=== PATIENT | female | born 1950 | race Caucasian/White ===

== ENCOUNTER 2017-05-24 10:22 | Inpatient (IN) | payer MEDICARE, MEDICAID ==
[2017-05-24] VITALS (13 sets, daily range): BP systolic 101–137; BP diastolic 58–80; PULSE 96–141; RESP 23–34; TEMP 98.7–100.7; O2SAT 92–98
[~2017-05-24] VITALS: Ht 157.5 cm; Wt 72.0 kg
[~2017-05-24 10:22] MED LIST: ALPR.25 PO; AMIO200 PO; CARV12.5 PO; CLOP75 PO; DILT60TA PO; ECOT81TA2 PO; EPZITAB4 PO; ESOM1CAP6 PO; HCTZ25 PO; KCL20 PO; LOSA50 PO; MAGN400 PO; MONT10TA2 PO; NEUR800T PO; PROZ20CA11 PO; ROSU40 PO; SUST600T4 PO; TRAM50 PO; ZOLP10TA3 PO
--- NOTE | 2017-05-24 10:42 | PD ---
HPI Chief Complaint: Respiratory Distress Time Seen by Provider: 10:33 Travel History International Travel<30 days: No Contact w/Intl Traveler<30days: No Traveled to known affect area: No History of Present Illness HPI The patient was seen and examined in the presence of the nurse. This patient is sent in by ambulance from the shelter in critical distress. She is a DNR patient with HIV who is currently on day 5 of Tamiflu for influenza. She is an active smoker at the facility. She's been coughing up thick mucus. She has a fever of 100.7 at this time. Symptoms are severe. Duration of symptoms 1 week. However much worse today. No alleviating factors. Symptoms exacerbated by her smoking and immunocompromise. PFSH Past Medical History Hx Anticoagulant Therapy: Yes Arthritis: No Asthma: Yes Autoimmune Disease: Yes (HIV +) Blood Disorders: No Anxiety: Yes Depression: Yes Heart Rhythm Problems: Yes (MURMUR AFIB) Cancer: No Cardiovascular Problems: Yes High Cholesterol: Yes Chemotherapy: No Congestive Heart Failure: No COPD: No Cerebrovascular Accident: Yes Diabetes: Yes Endocrine: No Gastrointestinal Disorders: Yes GERD: Yes Glaucoma: No Genitourinary: No Headaches: No Hepatitis: Yes (Hep-C) Hiatal Hernia: No Hypertension: Yes Immune Disorder: No Implanted Vascular Access Dvce: Yes Kidney Stones: No Musculoskeletal: Yes ("INJURIES FROM FREQU[place] FALLS") Neurologic: Yes Psychiatric: Yes Reproductive: No Respiratory: Yes Migraines: No Radiation Therapy: No Renal Failure: No Seizures: No Sickle Cell Disease: No Sleep Apnea: No Thyroid Disease: No Ulcer: No ?: Not Past Surgical History Abdominal Surgery: No AICD: No Body Medical Devices: RODS IN BILATERAL LEGS FROM ORTHOPEDIC SURGERY PER SISTER Cardiac Surgery: No Ear Surgery: No Endocrine Surgery: No Eye Surgery: Yes (BILATERAL CATARACTS) Genitourinary Surgery: No Gynecologic Surgery: Yes Hysterectomy: Yes Insulin Pump: No Joint Replacement: No Oral Surgery: No Pacemaker: No Thoracic Surgery: Yes (L MASTECTOMY) Other Surgery: Yes (LUMPECTOMY) Social History Alcohol Use: No Tobacco Use: No (1 PACK A DAY FOR 30 YEARS) Substance Use: No Allergies-Medications (Allergen,Severity, Reaction): Coded Allergies: acetaminophen (Unverified Allergy, Severe, GI UPSET, 11/08/16) hydrocodone (Unverified Allergy, Severe, GI UPSET, 11/08/16) Reported Meds & Prescriptions Reported Meds & Active Scripts Active Xanax 0.25 Mg (Alprazolam) 0.25 Mg Tab 0.25 Mg PO Q8H PRN Prozac (Fluoxetine HCl) 20 Mg Cap 40 Mg PO DAILY Sustiva (Efavirenz) 600 Mg Tab 600 Mg PO HS Ecotrin (Aspirin) 81 Mg Tabec 81 Mg PO DAILY Epzicom 600/300 (Abacavir/Lamivudine) Tab 1 Tab PO DAILY Cardizem 60 mg tab (Diltiazem HCl) 60 Mg Tab 1 Tab PO QID Mag-Ox 400 Mg Tab (Magnesium Oxide) 400 Mg Tab 800 Mg PO TID Kcl 20 Meq Tab (Potassium Chloride) 20 Meq Tabcr 20 Meq PO DAILY Ultram (Tramadol HCl) 50 Mg Tab 50 Mg PO Q8H PRN Nexium 24Hr (Esomeprazole Magnesium) 20 Mg Cap 20 Mg PO DAILY Crestor (Rosuvastatin Calcium) 40 Mg Tab 40 Mg PO HS Cordarone 200 Mg Tab (Amiodarone HCl) 200 Mg Tab 300 Mg PO Q12HR Coreg 12.5 mg (Carvedilol) 12.5 Mg Tab 1 Tab PO BID Losartan Potassium 50 Mg Tab 50 Mg PO BID Hydrodiuril (Hydrochlorothiazide) 25 Mg Tab 25 Mg PO DAILY Plavix (Clopidogrel Bisulfate) 75 Mg Tab 75 Mg PO DAILY Neurontin (Gabapentin) 800 Mg Tab 800 Mg PO BID Singulair (Montelukast Sodium) 10 Mg Tab 10 Mg PO HS Reported Ambien 10 Mg Tab (Zolpidem Tartrate) 10 Mg Tab 10 Mg PO HS Review of Systems General / Constitutional: Positive: Fever, Chills Eyes: No: Visual changes HENT: Positive: Congestion, No: Headaches Cardiovascular: Positive: Tachycardia, No: Chest Pain or Discomfort Respiratory: Positive: Cough, Shortness of Breath, Wheezing Gastrointestinal: No: Abdominal Pain Genitourinary: No: Dysuria Musculoskeletal: No: Pain Skin: No Rash Neurologic: No: Weakness Psychiatric: No: Depression Endocrine: No: Polydipsia Hematologic/Lymphatic: No: Easy Bruising Physical Exam Narrative GENERAL: Obese 67-year-old woman in profound respiratory distress. SKIN: Focused skin assessment reveals no rash and nodules. Skin is Warm and dry. HEAD: Atraumatic. Normocephalic. EYES: Pupils equal and round. No scleral icterus. No injection or drainage. ENT: No nasal bleeding or discharge. Mucous membranes pink and moist. NECK: Trachea midline. No JVD. CARDIOVASCULAR: Regular rate and rhythm. No murmur appreciated. Tachycardic at 140 RESPIRATORY: Positive accessory muscle use. Diffuse expiratory wheezing and rhonchi . Breath sounds equal bilaterally. Respiratory rate is elevated GASTROINTESTINAL: Abdomen soft, non-tender, nondistended. Hepatic and splenic margins not palpable. MUSCULOSKELETAL: No obvious deformities. No clubbing. No cyanosis. No edema. NEUROLOGICAL: Awake and alert. No obvious cranial nerve deficits. Motor grossly within normal limits. Normal speech. PSYCHIATRIC: Appropriate mood and affect; insight and judgment poor . Data Data Last Documented VS Vital Signs Date Time Temp Pulse Resp B/P (MAP) Pulse Ox O2 Delivery O2 Flow Rate FiO2 05/24/17 11:42 95 70 05/24/17 11:20 130 27 113/58 (76) BiPAP 05/24/17 10:31 8.00 05/24/17 10:31 100.7 Orders Orders Complete Blood Count With Diff (05/24/17 10:33) Comprehensive Metabolic Panel (05/24/17 10:33) Blood Culture (05/24/17 10:33) Iv Access Insert/Monitor (05/24/17 10:33) Electrocardiogram (05/24/17 10:33) Ecg Monitoring (05/24/17 10:33) Oximetry (05/24/17 10:33) Oxygen Administration (05/24/17 10:33) Chest, Single Ap (05/24/17 10:33) Sodium Chloride 0.9% Flush (Ns Flush) (05/24/17 10:45) Methylprednisolone So Succ Inj (Solumedr (05/24/17 10:45) Albuterol-Ipratropium Neb (Duoneb Neb) (05/24/17 10:45) Resp Bipap / Cpap Non Invas Vt (05/24/17 10:33) Piperacil-Tazo 3.375 Gm Premix (Zosyn 3. (05/24/17 10:45) Lactic Acid (05/24/17 10:42) Arterial Blood Gas (Abg) (05/24/17 ) B-Type Natriuretic Peptide (05/24/17 12:59) Ct Thorax/ Chest Wo Iv Contras (05/24/17 ) Admit Order (Ed Use Only) (05/24/17 13:05) Admit To Inpatient (05/24/17 ) Code Status (05/24/17 13:04) Vital Signs (Adult) ANGELITO.Q1H (05/24/17 13:04) Activity Bed Rest (05/24/17 13:04) Hydraulic Corrugating Machine Operator / Telemetry ANGELITO.Q8H (05/24/17 13:04) Intake + Output ANGELITO.Q8H (05/24/17 13:04) Diet Npo (05/24/17 Lunch) Sodium Chlor 0.9% 1000 Ml Inj (Ns 1000 M (05/24/17 13:04) Sodium Chloride 0.9% Flush (Ns Flush) (05/24/17 13:15) Sodium Chloride 0.9% Flush (Ns Flush) (05/24/17 13:15) Albuterol-Ipratropium Neb (Duoneb Neb) (05/24/17 16:00) Albuterol-Ipratropium Neb (Duoneb Neb) (05/24/17 13:15) Chlorhexidine 0.12% Liq (Peridex 0.12% L (05/24/17 20:00) Famotidine Inj (Pepcid Inj) (05/24/17 13:15) Complete Blood Count With Diff (05/25/17 06:00) Comprehensive Metabolic Panel (05/25/17 06:00) Troponin I (05/24/17 13:04) Troponin I (05/24/17 19:04) Magnesium (Mg) (05/24/17 13:04) Sputum Culture And Gram Stain (05/24/17 13:04) Ua Includes Microscopic (05/24/17 13:04) Chest, Single Ap (05/25/17 06:00) Resp Bipap / Cpap Non Invas Vt (05/24/17 ) Enoxaparin Inj (Lovenox Inj) (05/24/17 13:15) ^ Initiate Protocol (05/24/17 13:04) Instruction (05/24/17 13:04) Notify Md To Reorder (05/24/17 13:15) Chlorhexidine 2% Cloth (Chlorhexidine 2% (05/25/17 04:00) Chlorhexidine 2% Cloth (Chlorhexidine 2% (05/24/17 13:15) Mrsa Pcr Surveillance (05/24/17 13:04) Inpatient Certification (05/24/17 ) Piperacil-Tazo 4.5 Gm Premix (Zosyn 4.5 (05/24/17 13:15) Linezolid 600 Mg Premix (Zyvox 600 Mg Pr (05/24/17 13:15) Oseltamivir (Tamiflu) (05/24/17 21:00) Consult Infectious Disease (05/24/17 ) Labs Laboratory Tests Test 05/24/17 10:28 05/24/17 11:27 White Blood Count 12.2 TH/MM3 Red Blood Count 4.76 MIL/MM3 Hemoglobin 15.3 GM/DL Hematocrit 44.3 % Mean Corpuscular Volume 93.1 FL Mean Corpuscular Hemoglobin 32.1 PG Mean Corpuscular Hemoglobin Concent 34.4 % Red Cell Distribution Width 17.2 % Platelet Count 170 TH/MM3 Mean Platelet Volume 11.5 FL Neutrophils (%) (Auto) 87.6 % Lymphocytes (%) (Auto) 6.7 % Monocytes (%) (Auto) 5.2 % Eosinophils (%) (Auto) 0.2 % Basophils (%) (Auto) 0.3 % Neutrophils # (Auto) 10.7 TH/MM3 Lymphocytes # (Auto) 0.8 TH/MM3 Monocytes # (Auto) 0.6 TH/MM3 Eosinophils # (Auto) 0.0 TH/MM3 Basophils # (Auto) 0.0 TH/MM3 CBC Comment AUTO DIFF Differential Total Cells Counted 100 Neutrophils % (Manual) 70 % Band Neutrophils % 18 % Lymphocytes % 8 % Monocytes % 4 % Neutrophils # (Manual) 10.7 TH/MM3 Differential Comment FINAL DIFF MANUAL Toxic Vacuolation PRESENT Platelet Estimate NORMAL Platelet Morphology Comment ENLARGED Blood Urea Nitrogen 46 MG/DL Creatinine 1.48 MG/DL Random Glucose 162 MG/DL Total Protein 7.6 GM/DL Albumin 2.8 GM/DL Calcium Level 8.2 MG/DL Alkaline Phosphatase 109 U/L Aspartate Amino Transf (AST/SGOT) 129 U/L Alanine Aminotransferase (ALT/SGPT) 177 U/L Total Bilirubin 0.6 MG/DL Sodium Level 137 MEQ/L Potassium Level 3.5 MEQ/L Chloride Level 109 MEQ/L Carbon Dioxide Level 16.8 MEQ/L Anion Gap 11 MEQ/L Estimat Glomerular Filtration Rate 35 ML/MIN Lactic Acid Level 1.6 mmol/L Blood Gas Puncture Site RT RADIAL Blood Gas Patient Temperature 98.6 Blood Gas HCO3 15 mmol/L Blood Gas Base Excess -9.5 mmol/L Blood Gas Oxygen Saturation 93 % Arterial Blood pH 7.36 Arterial Blood Partial Pressure CO2 27 mmHg Arterial Blood Partial Pressure O2 72 mmHG Arterial Blood Oxygen Content 20.0 Vol % Arterial Blood Carboxyhemoglobin 1.0 % Arterial Blood Methemoglobin 0.6 % Blood Gas Hemoglobin 15.3 G/DL Oxygen Delivery Device BiPAP Blood Gas Ventilator Setting IPAP15/[id number] Blood Gas Inspired Oxygen 70 % MDM Medical Decision Making Medical Screen Exam Complete: Yes Emergency Medical Condition: Yes Medical Record Reviewed: Yes Differential Diagnosis Respiratory failure, pneumonia, COPD Narrative Course I have reviewed the patient's electronic medical record. Reviewed her shelter paperwork. She is a DNR. Reviewed her labs from March 1034: I have evaluated the patient. She is in critical respiratory distress. IV placed I gave her IV Solu-Medrol and IV Zosyn after 2 blood culture sets obtained Labs sent I've ordered an x-ray. I've initiated BiPAP therapy We'll honor her DNR and hold off on intubation 11:30: I reviewed her chest x-ray. Radiologist reading is noted. However she does not have any clinical suspicion of CHF. No edema or diuretic use. On the other hand she does have pneumonia symptomatology with fever and productive cough and immunocompromise 1145: CBC shows minor leukocytosis Metabolic profile shows azotemia with elevated BUN and creatinine ratio Get some IV fluid She is in A. fib with RVR Not hypotensive at this time 12:30: Another recheck was done. I reviewed her ABG which shows significant hypoxemia. However her workup breathing is much better on the BiPAP Heart rate running in the 120s A. fib 1310: I reviewed with revenue accounting manager for admission Patient is critically ill Critical Care Narrative Aggregate critical care time was 80 minutes. Time to perform other separately billable procedures was not included in the critical care time. My time did not include minutes spent treating any other patients simultaneously or on activities that did not directly contribute to the patient's treatment. The services I provided to this patient were to treat and/or prevent clinically significant deterioration that could result in: Cardiopulmonary arrest, hypoxemic brain injury, I provided critical care services requiring my management, as noted below: Chart data review, documentation time, medication orders and management, vital sign assessments/reviewing monitor data, ordering and reviewing lab tests, ordering and interpreting/reviewing x-rays and diagnostic studies, care of the patient and discussion of the patient with the admitting physicians. Sepsis Criteria SIRS Criteria (2 or more): Heart rate over 90, RR > 20 or PaCO2 < 32 Sepsis Criteria (SIRS+source): Infect source susp/known Criteria Outcome: Meets sepsis criteria Diagnosis Primary Impression: Acute hypoxemic respiratory failure Additional Impressions: History of HIV infection Atrial fibrillation with RVR Azotemia Admitting Information Admitting Physician Requests: Admit Beto Deleon MD May 24, 2017 10:42
[2017-05-24] MEDS ORDERED: SODIUM CHLORIDE 0.9% FLUSH 10 ML FLUSH IVF PRN (10:45)
[2017-05-24] MEDS ORDERED: PIPERACIL-TAZO 3.375 GM PREMIX 50 ML IV ONE (10:45)
[2017-05-24] MEDS: RESP: ALBUTEROL 2.5 MG/IPRATROPIUM 0.5 MG NEB (SCH) INH ×3 (10:45→10:55)
[2017-05-24] MEDS ORDERED: methylPREDNISolone SOD SUCC 125 MG/2 ML VIAL IV PUSH ONE (10:45)
--- NOTE | 2017-05-24 10:58 | RADRPT ---
EXAM DATE/TIME: 05/24/2017 10:43 [facility] COMPARISON: CHEST SINGLE AP, April 07, 2015, 14:22. INDICATIONS : Shortness of breath. MEDICAL HISTORY : Hypertension. Myocardial infarction. Stroke. Afib. Diabetes. SURGICAL HISTORY : None. ENCOUNTER: Initial ACUITY: 1 day PAIN SCORE: 0/10 LOCATION: Bilateral chest FINDINGS: Cardiomegaly with mild interstitial edema without consolidation or pleural effusion. No pneumothorax . The portion of the bony skeleton visualized is unremarkable. CONCLUSION: Mild to moderate congestive failure when compared to 04/07/15 Esteban Clarke MD FACR on May 24, 2017 at 10:56 Board Certified Radiologist. This report was verified electronically.
[2017-05-24 11:01] LABS: AUTOMATED NEUTROPHIL # 10.7 TH/MM3 (1.8-7.7); BASOPHIL % 0.3 % (0.0-2.0); EOSINOPHIL % 0.2 % (0.0-4.0); HEMATOCRIT 44.3 % (35.0-46.0); HEMOGLOBIN 15.3 GM/DL (11.6-15.3); LYMPH % 6.7 % (9.0-44.0); LYMPHOCYTE # 0.8 TH/MM3 (1.0-4.8); MEAN CELL VOLUME 93.1 FL (80.0-100.0); MEAN CORPUSCULAR HEMOGLOBIN 32.1 PG (27.0-34.0); MEAN CORPUSCULAR HGB CONC 34.4 % (32.0-36.0); MEAN PLATELET VOLUME 11.5 FL (7.0-11.0); MONO % 5.2 % (0.0-8.0); MONOCYTE # 0.6 TH/MM3 (0-0.9); NEUT % 87.6 % (16.0-70.0); PLATELET COUNT 170 TH/MM3 (150-450); RED BLOOD COUNT 4.76 MIL/MM3 (4.00-5.30); RED CELL DISTRIBUTION WIDTH 17.2 % (11.6-17.2); WHITE BLOOD COUNT 12.2 TH/MM3 (4.0-11.0)
[2017-05-24 11:11] LABS: ALKALINE PHOSPHATASE 109 U/L (45-117); TOTAL BILIRUBIN ADULT 0.6 MG/DL (0.2-1.0); TOTAL PROTEIN 7.6 GM/DL (6.4-8.2)
[2017-05-24 11:24] LABS: ALBUMIN 2.8 GM/DL (3.4-5.0); ALT (GPT) 177 U/L (10-53); AST (GOT) 129 U/L (15-37); BICARBONATE 16.8 MEQ/L (21.0-32.0); BLOOD UREA NITROGEN 46 MG/DL (7-18); CALCIUM 8.2 MG/DL (8.5-10.1); CHLORIDE 109 MEQ/L (98-107); CREATININE 1.48 MG/DL (0.50-1.00); GLOMERULAR FILTRATION RATE 35 ML/MIN (>89); GLUCOSE,RANDOM 162 MG/DL (74-106); SODIUM (NA) 137 MEQ/L (136-145)
[2017-05-24 11:51] LABS: BANDS 18 % (0-6); LYMPHOCYTES 8 % (9-44); MONOCYTES 4 % (0-8); NEUTROPHIL # MANUAL DIFF 10.7 TH/MM3 (1.8-7.7); POLYS (SEG NEUTROPHILS) 70 % (16-70); TOXIC VACUOLATION PRESENT (NONE SEEN)
[2017-05-24] MEDS ORDERED: MISCELLANEOUS NURSING INFORMATION XX SCH (13:15)
[2017-05-24] MEDS ORDERED: SODIUM CHLORIDE 0.9% FLUSH 10 ML FLUSH IV FLUSH PRN (13:15)
[2017-05-24] MEDS ORDERED: CHLORHEXIDINE GLUCONATE 2 % 1 PACK (2 CLOTHS) TOP PRN (13:15)
--- NOTE | 2017-05-24 13:31 | HHI.HP ---
[facility] Service Critical Care Medicine Primary Care Physician Enio Sanchez MD Admission Diagnosis acute hypoxemic resp failure, HCAP,afib with rvr,DNR Diagnosis: (1) Acute hypoxemic respiratory failure Diagnosis: Principal (2) Acute exacerbation of chronic obstructive pulmonary disease (COPD) Diagnosis: Principal (3) Severe sepsis Diagnosis: Principal (4) Healthcare-associated pneumonia Diagnosis: Principal (5) Bilateral multilobar pneumonia Diagnosis: Principal (6) Influenza Diagnosis: Principal (7) Acute kidney injury Diagnosis: Principal (8) Atrial fibrillation with RVR Diagnosis: Principal (9) Atrial fibrillation Diagnosis: Secondary (10) Expressive aphasia Diagnosis: Secondary (11) Depression Diagnosis: Secondary (12) Hypertension Diagnosis: Secondary (13) HLD (hyperlipidemia) Diagnosis: Secondary (14) Left acute arterial ischemic stroke, MCA (middle cerebral artery) Diagnosis: Secondary (15) History of diabetes mellitus Diagnosis: Secondary (16) Left carotid stenosis Diagnosis: Secondary Chief Complaint: Acute hypoxemic respiratory failure, multilobar pneumonia Travel History International Travel<30 Days: No Contact w/Intl Traveler <30 Da: No Traveled to Known Affected Are: No Sepsis Criteria SIRS Criteria (2 or more): Temp > 100.9 or < 96.8, Heart rate over 90, RR > 20 or PaCO2 < 32, WBC > 79733, < 4000 or > 10% bands Sepsis Criteria (SIRS+source): Infect source susp/known Severe Sepsis (+one): Organ Dysfunction, Acute Oliguria/Renal Failure Criteria Outcome: Meets severe sepsis criteria History of Present Illness Patient is a 67-year-old female with history of CVA in the past with right hemiparesis, expressive aphasia, coronary artery disease, chronic atrial fibrillation, carotid stenosis, HIV on HAART who [facility] severe respiratory distress and hypoxemia. Currently DNR. Recently diagnosed with influenza pneumonia currently on day 5 of Tamiflu. Fever of 100.7 in the ED. patient was in severe respiratory distress and hypoxemic immediately placed on BiPAP 70% oxygen. Chest x-ray showed bibasilar infiltrate later confirmed with CT chest as multilobar infiltrate/pneumonia. Patient received IV Solu- Medrol and IV Zosyn after 2 blood culture obtained. Patient also also found to be in A. fib with RVR with rates in 140s. CBC showed WBC count 12.2. BUN/cr was 46/1.5 and was normal about a week ago. Critical care medicine was requested to admit the patient. I evaluated the patient in the ED. She still appears to be in moderate respiratory distress but BiPAP had been removed per patient request. Significant respiratory distress and expressive aphasia limits exam. Patient is breathing approximately 40 breaths per minute, bilateral wheezing and coarse crackles heard. I have added scheduled Solu-Medrol, DuoNeb. Tamiflu will be continued, continue Zosyn and add Zyvox. ID consulted. Continue BiPAP at 02/28. Prognosis is guarded at this time Review of Systems ROS Limitations: Clinical Condition (resp failure on BiPAP) Past Family Social History Allergies: Coded Allergies: acetaminophen (Unverified Allergy, Severe, GI UPSET, 11/08/16) hydrocodone (Unverified Allergy, Severe, GI UPSET, 11/08/16) Past Medical History Hepatitis C HIV Atrial fibrillation Hyperlipidemia Mild aortic stenosis Multiple falls Left MCA distribution stroke Hypertension Asthma GERD Past Surgical History Left mastectomy Lateral lower extremity orthopedic surgery. Reported Medications Xanax 0.25 Mg (Alprazolam) 0.25 Mg Tab 0.25 Mg PO Q8H PRN Prozac (Fluoxetine HCl) 20 Mg Cap 40 Mg PO DAILY Sustiva (Efavirenz) 600 Mg Tab 600 Mg PO HS Ecotrin (Aspirin) 81 Mg Tabec 81 Mg PO DAILY Epzicom 600/300 (Abacavir/Lamivudine) Tab 1 Tab PO DAILY Cardizem 60 mg tab (Diltiazem HCl) 60 Mg Tab 1 Tab PO QID Mag-Ox 400 Mg Tab (Magnesium Oxide) 400 Mg Tab 800 Mg PO TID Kcl 20 Meq Tab (Potassium Chloride) 20 Meq Tabcr 20 Meq PO DAILY Ultram (Tramadol HCl) 50 Mg Tab 50 Mg PO Q8H PRN Nexium 24Hr (Esomeprazole Magnesium) 20 Mg Cap 20 Mg PO DAILY Crestor (Rosuvastatin Calcium) 40 Mg Tab 40 Mg PO HS Cordarone 200 Mg Tab (Amiodarone HCl) 200 Mg Tab 300 Mg PO Q12HR Coreg 12.5 mg (Carvedilol) 12.5 Mg Tab 1 Tab PO BID Losartan Potassium 50 Mg Tab 50 Mg PO BID Hydrodiuril (Hydrochlorothiazide) 25 Mg Tab 25 Mg PO DAILY Plavix (Clopidogrel Bisulfate) 75 Mg Tab 75 Mg PO DAILY Neurontin (Gabapentin) 800 Mg Tab 800 Mg PO BID Singulair (Montelukast Sodium) 10 Mg Tab 10 Mg PO HS Ambien 10 Mg Tab (Zolpidem Tartrate) 10 Mg Tab 10 Mg PO HS Active Ordered Medications Reviewed Family History Unable to obtain due to clinical condition Social History Continues to smoke at the shelter Physical Exam Vital Signs Vital Signs Date Time Temp Pulse Resp B/P (MAP) Pulse Ox O2 Delivery O2 Flow Rate FiO2 05/24/17 11:42 95 70 05/24/17 11:20 130 27 113/58 (76) 94 BiPAP 70 05/24/17 10:38 92 BiPAP 70 05/24/17 10:32 93 70 05/24/17 10:31 93 Nasal Cannula 8.00 05/24/17 10:31 100.7 141 29 137/80 (99) BiPAP 70 Physical Exam GENERAL: Obese 67-year-old woman in respiratory distress, currently on a nonrebreather SKIN: Skin is Warm and dry. HEAD: Atraumatic. Normocephalic. EYES: Pupils equal and round. No scleral icterus. ENT: No nasal bleeding or discharge. Mucous membranes dry NECK: Trachea midline. No JVD. CARDIOVASCULAR: No murmur appreciated. Tachycardic at 130-140. Monitor shows atrial fibrillation with RVR RESPIRATORY: Positive accessory muscle use. Diffuse expiratory wheezing and rhonchi . Tachypneic GASTROINTESTINAL: Abdomen soft, non-tender, nondistended. Hepatic and splenic margins not palpable. MUSCULOSKELETAL: No obvious deformities. No edema. NEUROLOGICAL: Awake and alert. Speech is incomprehensible, history of expressive aphasia. Limited exam due to respiratory distress but appears to have right hemiparesis Laboratory Laboratory Tests Test 05/24/17 10:28 05/24/17 11:27 White Blood Count 12.2 Red Blood Count 4.76 Hemoglobin 15.3 Hematocrit 44.3 Mean Corpuscular Volume 93.1 Mean Corpuscular Hemoglobin 32.1 Mean Corpuscular Hemoglobin Concent 34.4 Red Cell Distribution Width 17.2 Platelet Count 170 Mean Platelet Volume 11.5 Neutrophils (%) (Auto) 87.6 Lymphocytes (%) (Auto) 6.7 Monocytes (%) (Auto) 5.2 Eosinophils (%) (Auto) 0.2 Basophils (%) (Auto) 0.3 Neutrophils # (Auto) 10.7 Lymphocytes # (Auto) 0.8 Monocytes # (Auto) 0.6 Eosinophils # (Auto) 0.0 Basophils # (Auto) 0.0 CBC Comment AUTO DIFF Differential Total Cells Counted 100 Neutrophils % (Manual) 70 Band Neutrophils % 18 Lymphocytes % 8 Monocytes % 4 Neutrophils # (Manual) 10.7 Differential Comment FINAL DIFF MANUAL Toxic Vacuolation PRESENT Platelet Estimate NORMAL Platelet Morphology Comment ENLARGED Blood Urea Nitrogen 46 Creatinine 1.48 Random Glucose 162 Total Protein 7.6 Albumin 2.8 Calcium Level 8.2 Alkaline Phosphatase 109 Aspartate Amino Transf (AST/SGOT) 129 Alanine Aminotransferase (ALT/SGPT) 177 Total Bilirubin 0.6 Sodium Level 137 Potassium Level 3.5 Chloride Level 109 Carbon Dioxide Level 16.8 Anion Gap 11 Estimat Glomerular Filtration Rate 35 Lactic Acid Level 1.6 Blood Gas Puncture Site RT RADIAL Blood Gas Patient Temperature 98.6 Blood Gas HCO3 15 Blood Gas Base Excess -9.5 Blood Gas Oxygen Saturation 93 Arterial Blood pH 7.36 Arterial Blood Partial Pressure CO2 27 Arterial Blood Partial Pressure O2 72 Arterial Blood Oxygen Content 20.0 Arterial Blood Carboxyhemoglobin 1.0 Arterial Blood Methemoglobin 0.6 Blood Gas Hemoglobin 15.3 Oxygen Delivery Device BiPAP Blood Gas Ventilator Setting IPAP15/EPAP5 Blood Gas Inspired Oxygen 70 Date/Time Source Procedure Growth Status 05/24/17 10:35 Blood Peripheral Aerobic Blood Culture Pending Received 05/24/17 10:35 Blood Peripheral Anaerobic Blood Culture Pending Received Result Diagram: 05/24/17 1028 05/24/17 1028 Imaging CXR shows bilateral infiltrate CT chest bilateral infiltrate involving multiple lobes Septic Shock Reassessment Septic shock perfusion: reassessment completed Caprini VTE Risk Assessment Caprini VTE Risk Assessment: Mod/High Risk (score >= 2) Caprini Risk Assessment Model Point Value = 1 Point Value = 2 Point Value = 3 Point Value = 5 Age 41-60 Minor surgery BMI > 25 kg/m2 Swollen legs Varicose veins or History of unexplained or recurrent spontaneous Oral contraceptives or hormone replacement Sepsis (< 1 month) Serious lung disease, including pneumonia (< 1 month) Abnormal pulmonary function Acute myocardial infarction Congestive heart failure (< 1 month) History of inflammatory bowel disease Medical patient at bed rest Age 61-74 Arthroscopic surgery Major open surgery (> 45 min) Laparoscopic surgery (> 45 min) Malignancy Confined to bed (> 72 hours) Immobilizing plaster cast Central venous access Age >= 75 History of VTE Family history of VTE Factor V Leiden Prothrombin [id number] Lupus anticoagulant Anticardiolipin antibodies Elevated serum homocysteine Heparin-induced thrombocytopenia Other congenital or acquired thrombophilia Stroke (< 1 month) Elective arthroplasty Hip, pelvis, or leg fracture Acute spinal cord injury (< 1 month) Prophylaxis Regimen Total Risk Factor Score Risk Level Prophylaxis Regimen 0-1 Low Early ambulation 2 Moderate Order ONE of the following: *Sequential Compression Device (SCD) *Heparin 5000 units SQ BID 3-4 Higher Order ONE of the following medications: *Heparin 5000 units SQ TID *Enoxaparin/Lovenox 40 mg SQ daily (WT < 150 kg, CrCl > 30 mL/min) *Enoxaparin/Lovenox 30 mg SQ daily (WT < 150 kg, CrCl > 10-29 mL/min) *Enoxaparin/Lovenox 30 mg SQ BID (WT < 150 kg, CrCl > 30 mL/min) AND/OR *Sequential Compression Device (SCD) 5 or more Highest Order ONE of the following medications: *Heparin 5000 units SQ TID (Preferred with Epidurals) *Enoxaparin/Lovenox 40 mg SQ daily (WT < 150 kg, CrCl > 30 mL/min) *Enoxaparin/Lovenox 30 mg SQ daily (WT < 150 kg, CrCl > 10-29 mL/min) *Enoxaparin/Lovenox 30 mg SQ BID (WT < 150 kg, CrCl > 30 mL/min) AND *Sequential Compression Device (SCD) Assessment and Plan Assessment and Plan Neuro/Psych: History of left MCA stroke with right hemiparesis Depression Peripheral neuropathy Continue aspirin/Plavix PT/OT once stabilized respiratory prince Hold as needed Xanax, Prozac, Neurontin, Ambien CV: Atrial fibrillation with rapid ventricular response CAD with History of non-STEMI Dyslipidemia Left carotid stenosis History of hypertension Chronic A. fib Start Cardizem infusion for rate control Continue Home medications Coreg and amiodarone, hold p.o. Cardizem, and losartan Continue aspirin Plavix Check 2 D Echo. Echocardiogram in 2014 EF around 50%. Resp: Acute hypoxemic respiratory failure Multilobar pneumonia recent influenza Acute COPD exacerbation BiPAP 10/5 with 70% FiO2 Fluid resuscitation with 1 L normal saline and 75 mL/h IV Solu-Medrol 125 mg 1 and 60 mg every 8 hours DuoNeb every 4 hours scheduled and as needed Broad-spectrum antibiotics with Zosyn, Zyvox, Tamiflu GI: History of hepatitis C History diverticulosis Elevated liver enzymes NPO except meds IV Famotidine Check liver and gallbladder ultrasound : Acute kidney injury Gates will be placed for accurate I's and O's in a critically ill patient IVF as above Endo: Diabetes mellitus Place on sliding scale insulin. Accu-Cheks to maintain euglycemia Heme: Monitor CBC daily. ID: Bilateral pneumonia healthcare associated Reason influenza HIV Placed on Zosyn and Zyvox, and continue Tamiflu for influenza with superadded bacterial pneumonia Continue HAART Consult ID ENDO: Hypokalemia Replace electrolytes as clinically indicated for electrolyte protocol Access Utilized peripheral IVs Prophylaxis GI - Protonix DVT - SCD/Lovenox subcutaneous Critical Care 45 MIN Patient is critically ill in severe hypoxemic respiratory failure, due to DNR status unable to intubate. Continue BIPAP, IV Steroids, breathing treatment and broad spectrum antibiotics. Prognosis guarded Code Status DNR Discussed Condition With Dr. Dumont Problem Qualifiers (1) Atrial fibrillation: Qualified Codes: I48.91 - Unspecified atrial fibrillation (2) Depression: Qualified Codes: F32.9 - Major depressive disorder, single episode, unspecified Missael Erickson MD May 24, 2017 13:31
--- NOTE | 2017-05-24 13:39 | RADRPT ---
EXAM DATE/TIME: 05/24/2017 13:27 [facility] COMPARISON: No previous studies available for comparison. INDICATIONS : Shortness of breath. RADIATION DOSE: 18.63 CTDIvol (mGy) MEDICAL HISTORY : Cardiovascular disease. Hypertension. Asthma SURGICAL HISTORY : Hysterectomy. Shoulder surgery ENCOUNTER: Initial ACUITY: 1 day PAIN SCALE: 0/10 LOCATION: chest TECHNIQUE: Volumetric scanning of the chest was performed. Using automated exposure control and adjustment of t he mA and/or kV according to patient size, radiation dose was kept as low as reasonably achievable to obtain optimal diagnostic quality images. DICOM format image data is available electronically for r eview and comparison. Follow-up recommendations for detected pulmonary nodules are based at a minimum on nodule size and pa tient risk factors according to Fleischner Society Guidelines. FINDINGS: There is patchy airspace disease in both the right and left lungs with groundglass opacity and scatte red areas of consolidation. There is compensated cardiomegaly with extensive vascular calcification including the coronaries. Th ere is no pericardial effusion. There is no significant pleural effusion Small 1.4 cm left adrenal nodule is noted. Upper abdominal contents otherwise unremarkable. CONCLUSION: Patchy airspace disease scattered consolidation both lungs. No pleural effusion. Esteban Clarke MD FACR on May 24, 2017 at 13:37 Board Certified Radiologist. This report was verified electronically.
[2017-05-24] MEDS ORDERED: DILTIAZEM INJ 125 MG in SODIUM CHLORIDE 0.9% INJ 100 ML IV PRN (14:15)
[2017-05-24] MEDS ORDERED: SODIUM CHLOR 0.9% 1000 ML INJ 1,000 ML IV ONE (14:15)
[2017-05-24] MEDS ORDERED: GLUCAGON 1 MG/ML VIAL OTHER PRN (14:45)
[2017-05-24] MEDS ORDERED: DEXTROSE 50% IN WATER 50 ML VIAL(D50) IV PUSH PRN (14:45)
--- NOTE | 2017-05-24 14:52 | RADRPT ---
EXAM DATE/TIME: 05/24/2017 13:48 [facility] COMPARISON: CT THORAX W/O CONTRAST, May 24, 2017, 13:27. EXTERNAL COMPARISON : [facility], [facility]IVER, September 03, 2014 INDICATIONS : Abnormal labs. MEDICAL HISTORY : Hypercholesterolemia. Hepatitis C. CVA. SD. Anticoagulant therapy. A.FIb. Murmur. Hypertension. Ast hma. GERD. Diabetes. HIV. SURGICAL HISTORY : Hysterectomy. Cataracts removal. Left mastectomy. Bilateral leg surgery with hardware. ENCOUNTER: Initial ACUITY: 1 day PAIN SCORE: 0/10 LOCATION: Abdomen. MEASUREMENTS: LIVER: 19.9 cm length COMMON DUCT: 6 mm RIGHT KIDNEY: 11.6 x 3.9 x 4.2 cm SPLEEN: 11.7 cm length FINDINGS: LIVER: Mild increased echotexture without focal lesion or ductal dilatation. Main portal vein is patent. COMMON DUCT: No intraluminal mass or stone visualized. GALLBLADDER: There is a single stone visualized in the gallbladder. No wall thickening or pericholecystic fluid is present. PANCREAS: The visualized portions are within normal limits. RIGHT KIDNEY: No hydronephrosis, stone or mass. SPLEEN: No focal lesion. CONCLUSION: 1. Mild increased echotexture of the liver may indicate steatosis. 2. Cholelithiasis. Dre Goodman MD on May 24, 2017 at 14:49 Board Certified Radiologist. This report was verified electronically.
[2017-05-24] MEDS: RESP: ALBUTEROL 2.5 MG/IPRATROPIUM 0.5 MG NEB (SCH) NEB ×3 (15:29→23:12)
[2017-05-24] MEDS ORDERED: RESP: ALBUTEROL 2.5 MG/IPRATROPIUM 0.5 MG NEB (SCH) NEB (16:00)
[2017-05-24] MEDS: SODIUM CHLORIDE 0.9% FLUSH 10 ML FLUSH IV FLUSH SCH ×2 (16:14→21:56)
[2017-05-24] MEDS: ENOXAPARIN SODIUM 30 MG/0.3 ML SYRINGE SQ SCH (16:14)
[2017-05-24] MEDS: FAMOTIDINE 20 MG/2 ML VIAL IV PUSH SCH (16:14)
[2017-05-24] MEDS: LINEZOLID 600 MG PREMIX 300 ML IV SCH (16:14)
[2017-05-24] MEDS: SODIUM CHLOR 0.9% 1000 ML INJ 1,000 ML IV SCH (16:29)
[2017-05-24] MEDS: INSULIN ASPART SUPPLEMENTAL SCALE SQ SCH ×2 (16:38→21:54)
[2017-05-24] MEDS: PIPERACIL-TAZO 3.375 GM PREMIX 50 ML IV SCH ×2 (16:52→22:03)
[2017-05-24] MEDS ORDERED: PIPERACIL-TAZO 4.5 GM PREMIX 100 ML IV SCH (17:00)
--- NOTE | 2017-05-24 19:45 | PD.ID.CON ---
History of Present Illness Service ID Consult Requested By Dr Erickson Reason for Consult HIV , PNA Primary Care Physician Enio Sanchez MD Diagnoses: History of Present Illness 67 yo female is a very poor historian History obtained from the chart She lives in [facility], pt of Dr Sanchez, + chronic tobaccoism, COPD, HIV dz ( pt of Dr Gupta, on HAART: Truvadfa+ Norvir only reported on med rec), she dpoesnnot know her CD4 SHe presented with diagnosis of influenza in acute resp distress, cough CT showed b/l patchy infiltrates She is on zosyn, zyvox and tamiflu She is afebrile with mildly elevated WBC (12K) ABG with incerease Aa gradient MRSA nasal screen + Lactic acid wnl Blood clx are Pending Sputum clx not available (pt not expectorationg) Review of Systems Except as stated in HPI: all other systems reviewed are Neg Past Family Social History Allergies: Coded Allergies: acetaminophen (Unverified Allergy, Severe, GI UPSET, 11/08/16) hydrocodone (Unverified Allergy, Severe, GI UPSET, 11/08/16) Past Medical History HIV HCV breast CA (L) COPD tobaccoism NSTEMI AFib MOrbid obesity Past Surgical History L mastectomy ORIF BLE Active Ordered Medications Medications where reviewed in EMR Antibiotics Include: tamiflu zosyn zyvox Family History reviewed non contributory Social History + tobacco no ETOH resides in [facility] Physical Exam Vital Signs Vital Signs Date Time Temp Pulse Resp B/P (MAP) Pulse Ox O2 Delivery O2 Flow Rate FiO2 05/24/17 19:12 97 BiPAP 50 05/24/17 19:11 97 50 05/24/17 18:00 104 05/24/17 16:00 109 05/24/17 16:00 99.6 109 34 107/61 (76) 92 05/24/17 15:30 98 Non-Rebreather 12.00 05/24/17 11:42 95 70 05/24/17 11:20 130 27 113/58 (76) 94 BiPAP 70 05/24/17 10:38 92 BiPAP 70 05/24/17 10:32 93 70 05/24/17 10:31 93 Nasal Cannula 8.00 05/24/17 10:31 100.7 141 29 137/80 (99) BiPAP 70 Physical Exam CONSTITUTIONAL/GENERAL: This is a morbidly obese patient, in no apparent distress. On BIPAP 50%, partial face mask TUBES/LINES/DRAINS: SKIN: No jaundice, rashes, or lesions. Skin temperature appropriate. Not diaphoretic. BREASTS: mastectomy scar L breast - well healed HEAD: Atraumatic. Normocephalic. EYES: Pupils equal and round and reactive. Extraocular motions intact. No scleral icterus. No injection or drainage. Fundi not examined. ENT: Hearing grossly normal. Nose without bleeding or purulent drainage. Limited mucosae exam without visible erythema, or lesions. NECK: Trachea midline. Supple, nontender. CARDIOVASCULAR: Regular rate and rhythm without murmurs, gallops, or rubs. No JVD. Peripheral pulses symmetric. Perifery well perfused RESPIRATORY/CHEST: Symmetric, unlabored respirations. Diffuse b/l to auscultation. Breath sounds equal bilaterally. GASTROINTESTINAL: Abdomen soft, non-tender, nondistended. No hepato-splenomegaly , or palpable masses. No guarding. Bowel sounds present. GENITOURINARY: Without palpable bladder distension. Gates catheter in place. MUSCULOSKELETAL: Extremities without clubbing, cyanosis, or edema. No joint tenderness or effusion noted. No calf tenderness. No mottling or clubbing. LYMPHATICS: No palpable cervical or supraclavicular adenopathy. NEUROLOGICAL: Awake and alert. Motor and sensory grossly within normal limits. Follows commands. Moves all extremities. PSYCHIATRIC: No obvious anxiety/depression. no apparent hallucinations or other psychotic thought process. Laboratory Laboratory Tests Test 05/24/17 10:28 05/24/17 11:27 05/24/17 16:00 White Blood Count 12.2 Red Blood Count 4.76 Hemoglobin 15.3 Hematocrit 44.3 Mean Corpuscular Volume 93.1 Mean Corpuscular Hemoglobin 32.1 Mean Corpuscular Hemoglobin Concent 34.4 Red Cell Distribution Width 17.2 Platelet Count 170 Mean Platelet Volume 11.5 Neutrophils (%) (Auto) 87.6 Lymphocytes (%) (Auto) 6.7 Monocytes (%) (Auto) 5.2 Eosinophils (%) (Auto) 0.2 Basophils (%) (Auto) 0.3 Neutrophils # (Auto) 10.7 Lymphocytes # (Auto) 0.8 Monocytes # (Auto) 0.6 Eosinophils # (Auto) 0.0 Basophils # (Auto) 0.0 CBC Comment AUTO DIFF Differential Total Cells Counted 100 Neutrophils % (Manual) 70 Band Neutrophils % 18 Lymphocytes % 8 Monocytes % 4 Neutrophils # (Manual) 10.7 Differential Comment FINAL DIFF MANUAL Toxic Vacuolation PRESENT Platelet Estimate NORMAL Platelet Morphology Comment ENLARGED Blood Urea Nitrogen 46 Creatinine 1.48 Random Glucose 162 Total Protein 7.6 Albumin 2.8 Calcium Level 8.2 Alkaline Phosphatase 109 Aspartate Amino Transf (AST/SGOT) 129 Alanine Aminotransferase (ALT/SGPT) 177 Total Bilirubin 0.6 Sodium Level 137 Potassium Level 3.5 Chloride Level 109 Carbon Dioxide Level 16.8 Anion Gap 11 Estimat Glomerular Filtration Rate 35 Lactic Acid Level 1.6 Troponin I 0.02 B-Type Natriuretic Peptide 111 Blood Gas Puncture Site RT RADIAL Blood Gas Patient Temperature 98.6 Blood Gas HCO3 15 Blood Gas Base Excess -9.5 Blood Gas Oxygen Saturation 93 Arterial Blood pH 7.36 Arterial Blood Partial Pressure CO2 27 Arterial Blood Partial Pressure O2 72 Arterial Blood Oxygen Content 20.0 Arterial Blood Carboxyhemoglobin 1.0 Arterial Blood Methemoglobin 0.6 Blood Gas Hemoglobin 15.3 Oxygen Delivery Device BiPAP Blood Gas Ventilator Setting IPAP15/EPAP5 Blood Gas Inspired Oxygen 70 Date/Time Source Procedure Growth Status 05/24/17 10:35 Blood Peripheral Aerobic Blood Culture Pending Received 05/24/17 10:35 Blood Peripheral Anaerobic Blood Culture Pending Received Result Diagram: 05/24/17 1028 05/24/17 1028 Imaging Last Impressions Chest X-Ray 05/24/17 1033 Signed Impressions: Service Date/Time: Wednesday, May 24, 2017 10:43 - CONCLUSION: Mild to moderate congestive failure when compared to 04/07/15 Esteban Clarke MD FACR Liver Ultrasound 05/24/17 0000 Signed Impressions: Service Date/Time: Wednesday, May 24, 2017 13:48 - CONCLUSION: 1. Mild increased echotexture of the liver may indicate steatosis. 2. Cholelithiasis. Dre Goodman MD Chest CT 05/24/17 0000 Signed Impressions: Service Date/Time: Wednesday, May 24, 2017 13:27 - CONCLUSION: Patchy airspace disease scattered consolidation both lungs. No pleural effusion. Esteban Clarke MD FACR Assessment and Plan Assessment and Plan Influenza PNA Respiratory insufficiency HIV, unknown immunosuppression status Morbid obesety COPD Chronic tobaccoism cont current abx cont tamiflu will need to review HAART wt provider (Dr Gupta) sputum clx fu blood clx Margaret Judge MD May 24, 2017 19:45
--- NOTE | 2017-05-24 19:51 | HHI.PR ---
Addendum to Inpatient Note Additional Information Pt seen and examined chart reviewed pt is a very poor historian Full note to follow Brifly: 67 yo with HIV (Dr Gupta, CD4 unknown) / HAART reported in the chart reviewed , tobaccosism, COPD, L breast ca, HCV preseted from [facility] with Influenza, PNA and resp insufficiency On BIPAP NOt expectorating On exam: comfortabl;e on 50% FiO2 BIPAP partial face mask Diffuse rhonchi on aiscultation RRR Benign obese abdomen Well perfused warm toes, fingers CT with patcy infiltrates BC P Sputum not obtainable 2/2 lack of expectoration ABx: Tamiflu, zosyn, zyvox, HAART (ABC/Tenofovir, Norvir) Plan: cont current abx will need records re HAART sputum clx Margaret Judge MD May 24, 2017 19:51
[2017-05-24] MEDS: CHLORHEXIDINE 0.12% (ORAL KIT) 15 ML CUP MT SCH (20:00)
[2017-05-24 20:25] LABS: MAGNESIUM 1.2 MG/DL (1.5-2.5)
[2017-05-24 20:28] LABS: TROPONIN I 0.03 NG/ML (0.02-0.05)
[2017-05-24] MEDS: OSELTAMIVIR PHOSPHATE 75 MG CAP PO SCH (21:00)
[2017-05-24] MEDS: AMIODARONE 200 MG TAB PO SCH (21:54)
[2017-05-24] MEDS: MONTELUKAST SODIUM 10 MG TAB PO SCH (21:55)
[2017-05-24] MEDS: ATORVASTATIN 80 MG TAB PO SCH (21:56)
[2017-05-24] MEDS: CARVEDILOL 12.5 MG TAB PO SCH (21:56)
[2017-05-24] MEDS: methylPREDNISolone SOD SUCC 125 MG/2 ML VIAL IV PUSH SCH (21:57)
[2017-05-24] MEDS ORDERED: SODIUM CHLORIDE 0.9% INJ 50 ML ONE (22:01)
[2017-05-24] MEDS ORDERED: PIPERACIL-TAZO 3.375 GM PREMIX 50 ML ONE (22:01)
[2017-05-25] VITALS (14 sets, daily range): BP systolic 102–137; BP diastolic 56–71; PULSE 78–88; RESP 16–27; TEMP 97.6–98.6; O2SAT 93–96
[2017-05-25] MEDS: LINEZOLID 600 MG PREMIX 300 ML IV SCH ×2 (02:30→14:10)
[2017-05-25] MEDS: FAMOTIDINE 20 MG/2 ML VIAL IV PUSH SCH ×2 (02:30→14:10)
[2017-05-25] MEDS: RESP: ALBUTEROL 2.5 MG/IPRATROPIUM 0.5 MG NEB (SCH) NEB ×6 (03:15→23:34)
[2017-05-25] MEDS: SODIUM CHLOR 0.9% 1000 ML INJ 1,000 ML IV SCH ×3 (03:20→16:50)
[2017-05-25] MEDS: CHLORHEXIDINE GLUCONATE 2 % 1 PACK (2 CLOTHS) TOP SCH ×2 (04:00→06:00)
[2017-05-25] MEDS ORDERED: PIPERACIL-TAZO 3.375 GM PREMIX 50 ML ONE ×3 (04:01→21:21)
[2017-05-25] MEDS ORDERED: SODIUM CHLORIDE 0.9% INJ 0 ML ONE (04:01)
[2017-05-25] MEDS: methylPREDNISolone SOD SUCC 125 MG/2 ML VIAL IV PUSH SCH ×3 (04:30→21:29)
[2017-05-25] MEDS: PIPERACIL-TAZO 3.375 GM PREMIX 50 ML IV SCH ×4 (04:30→21:29)
[2017-05-25] MEDS: INSULIN ASPART SUPPLEMENTAL SCALE SQ SCH ×6 (04:32→20:00)
--- NOTE | 2017-05-25 04:50 | RADRPT ---
EXAM DATE/TIME: 05/25/2017 03:38 [facility] COMPARISON: CT THORAX W/O CONTRAST, May 24, 2017, 13:27. CHEST SINGLE AP, May 24, 2017, 10:43. INDICATIONS : Shortness of breath, possible pulmonary disease. MEDICAL HISTORY : Hypertension. Myocardial infarction. Stroke. A-Fib Diabetes SURGICAL HISTORY : None. ENCOUNTER: Subsequent ACUITY: 2 days PAIN SCORE: Non-responsive. LOCATION: Bilateral chest FINDINGS: Slightly more prominent patchy airspace disease in the left midlung zone. Persistent patchy airspace disease in the right mid to lower lung zones. Cardiomediastinal contours are stable. Remainder of the exam is unchanged. CONCLUSION: 1. Slightly more prominent patchy airspace disease in the left midlung zone. 2. Stable patchy airspace disease in the right mid to lower lung zones and left lower lung zone. Peter Gonzalez MD on May 25, 2017 at 4:48 Board Certified Radiologist. This report was verified electronically.
[2017-05-25] MEDS: CHLORHEXIDINE 0.12% (ORAL KIT) 15 ML CUP MT SCH ×2 (08:00→20:00)
[2017-05-25] MEDS: SODIUM CHLORIDE 0.9% FLUSH 10 ML FLUSH IV FLUSH SCH ×2 (09:00→21:30)
[2017-05-25] MEDS ORDERED: [UNRECOGNIZED DRUG - OTHER] PO SCH (09:00)
[2017-05-25] MEDS: ABACAVIR SULFATE 300 MG TAB PO SCH (09:25)
[2017-05-25] MEDS: ASPIRIN EC 81 MG TABEC PO SCH (09:25)
[2017-05-25] MEDS: CLOPIDOGREL 75 MG TAB PO SCH (09:26)
[2017-05-25] MEDS: CARVEDILOL 12.5 MG TAB PO SCH ×2 (09:26→21:30)
[2017-05-25] MEDS: AMIODARONE 200 MG TAB PO SCH ×2 (09:26→21:28)
--- NOTE | 2017-05-25 10:53 | HHI.CCPN ---
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 Currently DNR. Recently diagnosed with influenza pneumonia currently on day 5 of Tamiflu. Fever of 100.7 in the ED. patient was in severe respiratory distress and hypoxemic immediately placed on BiPAP 70% oxygen. Chest x-ray showed bibasilar infiltrate later confirmed with CT chest as multilobar infiltrate/pneumonia. Patient received IV Solu-Medrol and IV Zosyn after 2 blood culture obtained. Patient also also found to be in A. fib with RVR with rates in 140s. CBC showed WBC count 12.2. BUN/cr was 46/1.5 and was normal about a week ago. Critical care medicine was requested to admit the patient. Dr. Erickson evaluated the patient in the ED. She still appears to be in moderate respiratory distress but BiPAP had been removed per patient request. Significant respiratory distress and expressive aphasia limits exam. Patient is breathing approximately 40 breaths per minute, bilateral wheezing and coarse crackles heard. I have added scheduled Solu-Medrol, DuoNeb. Tamiflu will be continued, continue Zosyn and add Zyvox. ID consulted. Continue BiPAP at 02/28. Prognosis is guarded at this time 05/25: Resting comfortably in bed on nasal cannula, not in any acute distress. Objective Vital Signs Date Time Temp Pulse Resp B/P (MAP) Pulse Ox O2 Delivery O2 Flow Rate FiO2 05/25/17 10:00 85 05/25/17 08:00 93 Nasal Cannula 4.00 05/25/17 08:00 97.7 25 110/68 (82) 05/24/17 23:15 40 Intake and Output 05/25/17 05/25/17 05/26/17 08:00 16:00 00:00 Intake Total 830 ml Output Total 400 ml Balance 430 ml Result Diagram: 05/24/17 1028 05/24/17 1028 Other Results Laboratory Tests Test 05/24/17 11:27 Blood Gas Puncture Site RT RADIAL Blood Gas Patient Temperature 98.6 Blood Gas HCO3 15 mmol/L (22-26) Blood Gas Base Excess -9.5 mmol/L (-2-2) Blood Gas Oxygen Saturation 93 % (90-100) Arterial Blood pH 7.36 (7.380-7.420) Arterial Blood Partial Pressure CO2 27 mmHg (38-42) Arterial Blood Partial Pressure O2 72 mmHG (61-120) Arterial Blood Oxygen Content 20.0 Vol % (12.0-20.0) Arterial Blood Carboxyhemoglobin 1.0 % (0-4) Arterial Blood Methemoglobin 0.6 % (0-2) Blood Gas Hemoglobin 15.3 G/DL (12.0-16.0) Oxygen Delivery Device BiPAP Blood Gas Ventilator Setting IPAP15/[id number] Blood Gas Inspired Oxygen 70 % Imaging CXR shows bilateral infiltrate CT chest bilateral infiltrate involving multiple lobes Objective Remarks GENERAL: Obese 67-year-old woman laying in bed on nasal cannula not in any acute distress SKIN: Skin is Warm and dry. HEAD: Atraumatic. Normocephalic. EYES: Pupils equal and round. No scleral icterus. ENT: No nasal bleeding or discharge. Mucous membranes dry NECK: Trachea midline. No JVD. CARDIOVASCULAR: No murmur appreciated. S1-S2 irregularly irregular RESPIRATORY: Good air entry bilaterally, scattered rhonchi, no wheezing GASTROINTESTINAL: Abdomen soft, non-tender, nondistended. Hepatic and splenic margins not palpable. MUSCULOSKELETAL: No obvious deformities. No edema. NEUROLOGICAL: Awake and alert. Speech is incomprehensible, history of expressive aphasia. Minimal right sided weakness which is old A/P Assessment and Plan Neuro/Psych: History of left MCA stroke with right hemiparesis Depression Peripheral neuropathy Continue aspirin/Plavix PT/OT once stabilized respiratory prince Hold as needed Xanax, Prozac, Neurontin, Ambien CV: Atrial fibrillation with rapid ventricular response CAD with History of non-STEMI Dyslipidemia Left carotid stenosis History of hypertension Chronic A. fib Cardizem infusion for rate control Continue Home medications Coreg and amiodarone, hold p.o. Cardizem, and losartan Continue aspirin Plavix Check 2 D Echo. Echocardiogram in 2014 EF around 50%. Resp: Acute hypoxemic respiratory failure Multilobar pneumonia recent influenza Acute COPD exacerbation BiPAP 10/5 with 70% FiO2 Fluid resuscitation with 1 L normal saline and 75 mL/h IV Solu-Medrol 125 mg 1 and 60 mg every 8 hours DuoNeb every 4 hours scheduled and as needed Broad-spectrum antibiotics with Zosyn, Zyvox, Tamiflu GI: History of hepatitis C History diverticulosis Elevated liver enzymes Advance PO as tolerated. IV Famotidine Check liver and gallbladder ultrasound : Acute kidney injury Gates will be placed for accurate I's and O's in a critically ill patient IVF as above Endo: Diabetes mellitus Place on sliding scale insulin. Accu-Cheks to maintain euglycemia Heme: Monitor CBC daily. ID: Bilateral pneumonia healthcare associated Reason influenza HIV Placed on Zosyn and Zyvox, and continue Tamiflu for influenza with superadded bacterial pneumonia Continue HAART Consult ID ENDO: Hypokalemia Replace electrolytes as clinically indicated for electrolyte protocol Access Utilized peripheral IVs Prophylaxis GI - Protonix DVT - SCD/Lovenox subcutaneous Marcos Martel MD May 25, 2017 10:53
[2017-05-25 11:02] LABS: AUTOMATED NEUTROPHIL # 8.1 TH/MM3 (1.8-7.7); BASOPHIL % 0.1 % (0.0-2.0); HEMATOCRIT 38.4 % (35.0-46.0); HEMOGLOBIN 13.3 GM/DL (11.6-15.3); LYMPH % 9.2 % (9.0-44.0); LYMPHOCYTE # 0.9 TH/MM3 (1.0-4.8); MEAN CELL VOLUME 92.7 FL (80.0-100.0); MEAN CORPUSCULAR HEMOGLOBIN 32.1 PG (27.0-34.0); MEAN CORPUSCULAR HGB CONC 34.6 % (32.0-36.0); MONO % 5.8 % (0.0-8.0); MONOCYTE # 0.6 TH/MM3 (0-0.9); NEUT % 84.9 % (16.0-70.0); PLATELET COUNT 144 TH/MM3 (150-450); RED BLOOD COUNT 4.14 MIL/MM3 (4.00-5.30); RED CELL DISTRIBUTION WIDTH 17.3 % (11.6-17.2); WHITE BLOOD COUNT 9.6 TH/MM3 (4.0-11.0)
--- NOTE | 2017-05-25 11:03 | EKG ---
Date Performed: 05/24/2017 Time Performed: 10:37:17 PTAGE: 67 years EKG: ATRIAL FIBRILLATION WITH RAPID VENTRICULAR RESPONSE MARKED LEFT AXIS DEVIATION INTRAVENTRIC ULAR CONDUCTION DELAY ABNORMAL ECG INTERPRETATION BASED ON A DEFAULT AGE OF 40 YEARS PREVIOUS TRACING : 05/24/2017 10.36 Compared to prior EKG, the patient is now in atrial f ibrillation. DOCTOR: Mabel Pelletier Interpretating Date/Time 05/25/2017 11:02:09
[2017-05-25 11:28] LABS: ALBUMIN 2.3 GM/DL (3.4-5.0); ALT (GPT) 169 U/L (10-53); AST (GOT) 145 U/L (15-37); BICARBONATE 19.9 MEQ/L (21.0-32.0); BLOOD UREA NITROGEN 40 MG/DL (7-18); CHLORIDE 112 MEQ/L (98-107); CREATININE 1.02 MG/DL (0.50-1.00); GLOMERULAR FILTRATION RATE 54 ML/MIN (>89); GLUCOSE,RANDOM 151 MG/DL (74-106); SODIUM (NA) 142 MEQ/L (136-145)
[2017-05-25 11:29] LABS: ALKALINE PHOSPHATASE 86 U/L (45-117); TOTAL BILIRUBIN ADULT 0.4 MG/DL (0.2-1.0); TOTAL PROTEIN 6.7 GM/DL (6.4-8.2)
[2017-05-25] MEDS ORDERED: SODIUM CHLORIDE 0.9% INJ 50 ML ONE ×2 (11:30→21:21)
[2017-05-25] MEDS: OSELTAMIVIR PHOSPHATE 75 MG CAP PO SCH ×2 (11:35→21:28)
--- NOTE | 2017-05-25 12:04 | ECHRPT ---
Indication: a fib/flutter CONCLUSIONS Normal left ventricular size. The left ventricular systolic function is low normal with an estimated ejection fraction in the rang e of 50- 55%. [id number] mitral valve regurgitation. aortic valve sclerosis with mean gradient = 11 mm hg c/w mild aortic valve stenosis mitral annular calcification There is mild tricuspid valve regurgitation. The estimated pulmonary arterial pressure is 46.2 mmHg. BP: / HR: Rhythm: MEASUREMENTS (Male / Female) Normal Values Technical Quality:Good 2D ECHO LV Diastolic Diameter PLAX 3.4 cm 4.2 - 5.9 / 3.9 - 5.3 cm LV Systolic Diameter PLAX 2.6 cm IVS Diastolic Thickness 1.6 cm 0.6 - 1.0 / 0.6 - 0.9 cm LVPW Diastolic Thickness 1.7 cm 0.6 - 1.0 / 0.6 - 0.9 cm LV Relative Wall Thickness 0.9 RV Internal Dim ED PLAX 2.2 cm LVOT Diameter 2.0 cm M-MODE Aortic Root Diameter MM 2.9 cm LA Systolic Diameter MM 2.9 cm LA Ao Ratio MM 1.0 AV Cusp Separation MM 1.3 cm DOPPLER AV Peak Velocity 233.0 cm/s AV Peak Gradient 21.7 mmHg AV Mean Gradient 11.0 mmHg AV Velocity Time Integral 33.2 cm AI Peak Velocity 339.0 cm/s AI Peak Gradient 46.0 mmHg AI Pressure Half Time 523.0 ms LVOT Peak Velocity 97.8 cm/s LVOT Peak Gradient 3.8 mmHg LVOT Velocity Time Integral 13.6 cm AV Area Cont Eq vti 1.3 cm AV Area Cont Eq pk 1.3 cm MV Area PHT 1.9 cm LV E' Lateral Velocity 8.8 cm/s LV E' Septal Velocity 11.1 cm/s TR Peak Velocity 301.0 cm/s TR Peak Gradient 36.2 mmHg Right Atrial Pressure 10.0 mmHg Pulmonary Artery Systolic Pressu 46.2 mmHg Right Ventricular Systolic Press 46.2 mmHg FINDINGS LEFT VENTRICLE Normal left ventricular size. The left ventricular systolic function is low normal with an estimated ejection fraction in the rang e of 50- 55%. RIGHT VENTRICLE Normal right ventricular size and systolic function. LEFT ATRIUM The left atrial size is normal. RIGHT ATRIUM The right atrial size is normal. ATRIAL SEPTUM Normal atrial septal thickness without atrial level shunting by limited color doppler interrogation. AORTA The aortic root and proximal ascending aorta are normal in size on limited imaging. MITRAL VALVE Structurally normal mitral valve. [id number] mitral valve regurgitation. AORTIC VALVE Trileaflet aortic valve. No aortic valve regurgitation. No aortic valve stenosis. TRICUSPID VALVE Structurally normal tricuspid valve. There is mild tricuspid valve regurgitation. The estimated pulmonary arterial pressure is 46.2 mmHg. PULMONARY VALVE No pulmonary valve regurgitation or stenosis. VESSELS The inferior vena cava is normal in size. PERICARDIUM No pericardial effusion. Carlito Judge MD, FACC, [facility] [place] (Electronically Signed) Final Date:25 May 2017 12:03
[2017-05-25] MEDS: ENOXAPARIN SODIUM 30 MG/0.3 ML SYRINGE SQ SCH (14:10)
--- NOTE | 2017-05-25 15:39 | HHI.IDPN ---
Subjective Subjective Remarks pt is now on NC O2 , off BIPAP No fever Gram positive rods in 1/4 bottles of blood clx (aerobic) No sputum availbale (pt does not expectorate) Antibiotics Abacavir, Epivir, Sustiva, NOrvir zyvox zosyn tamiflu Allergies: Coded Allergies: acetaminophen (Unverified Allergy, Severe, GI UPSET, 11/08/16) hydrocodone (Unverified Allergy, Severe, GI UPSET, 11/08/16) Objective . Vital Signs Date Time Temp Pulse Resp B/P (MAP) Pulse Ox O2 Delivery O2 Flow Rate FiO2 05/25/17 10:00 85 05/25/17 08:00 93 Nasal Cannula 4.00 05/25/17 08:00 85 05/25/17 08:00 97.7 85 25 110/68 (82) 93 05/25/17 07:37 93 Nasal Cannula 4.00 05/25/17 06:00 78 05/25/17 04:00 98.6 78 22 102/56 (71) 94 05/25/17 04:00 78 05/25/17 02:00 93 6.00 05/25/17 02:00 88 05/25/17 00:00 98.6 86 22 113/57 (75) 96 05/25/17 00:00 86 05/24/17 23:15 96 40 05/24/17 22:00 96 05/24/17 21:16 93 Nasal Cannula 6.00 05/24/17 20:00 102 05/24/17 20:00 96 Bi-Pap 40 05/24/17 20:00 98.7 102 23 101/62 (75) 96 05/24/17 19:12 97 BiPAP 50 05/24/17 19:11 97 50 05/24/17 18:00 104 05/24/17 16:00 109 05/24/17 16:00 99.6 109 34 107/61 (76) 92 . Laboratory Tests Test 05/24/17 10:28 05/25/17 10:31 White Blood Count 12.2 TH/MM3 9.6 TH/MM3 Red Blood Count 4.76 MIL/MM3 4.14 MIL/MM3 Hemoglobin 15.3 GM/DL 13.3 GM/DL Hematocrit 44.3 % 38.4 % Mean Corpuscular Volume 93.1 FL 92.7 FL Mean Corpuscular Hemoglobin 32.1 PG 32.1 PG Mean Corpuscular Hemoglobin Concent 34.4 % 34.6 % Red Cell Distribution Width 17.2 % 17.3 % Platelet Count 170 TH/MM3 144 TH/MM3 Mean Platelet Volume 11.5 FL 11.0 FL Neutrophils (%) (Auto) 87.6 % 84.9 % Lymphocytes (%) (Auto) 6.7 % 9.2 % Monocytes (%) (Auto) 5.2 % 5.8 % Eosinophils (%) (Auto) 0.2 % 0.0 % Basophils (%) (Auto) 0.3 % 0.1 % Neutrophils # (Auto) 10.7 TH/MM3 8.1 TH/MM3 Lymphocytes # (Auto) 0.8 TH/MM3 0.9 TH/MM3 Monocytes # (Auto) 0.6 TH/MM3 0.6 TH/MM3 Eosinophils # (Auto) 0.0 TH/MM3 0.0 TH/MM3 Basophils # (Auto) 0.0 TH/MM3 0.0 TH/MM3 CBC Comment AUTO DIFF DIFF FINAL Differential Total Cells Counted 100 Neutrophils % (Manual) 70 % Band Neutrophils % 18 % Lymphocytes % 8 % Monocytes % 4 % Neutrophils # (Manual) 10.7 TH/MM3 Differential Comment FINAL DIFF MANUAL Toxic Vacuolation PRESENT Platelet Estimate NORMAL Platelet Morphology Comment ENLARGED Laboratory Tests Test 05/24/17 10:28 05/24/17 19:41 05/25/17 10:31 Blood Urea Nitrogen 46 MG/DL 40 MG/DL Creatinine 1.48 MG/DL 1.02 MG/DL Random Glucose 162 MG/DL 151 MG/DL Total Protein 7.6 GM/DL 6.7 GM/DL Albumin 2.8 GM/DL 2.3 GM/DL Calcium Level 8.2 MG/DL 8.0 MG/DL Alkaline Phosphatase 109 U/L 86 U/L Aspartate Amino Transf (AST/SGOT) 129 U/L 145 U/L Alanine Aminotransferase (ALT/SGPT) 177 U/L 169 U/L Total Bilirubin 0.6 MG/DL 0.4 MG/DL Sodium Level 137 MEQ/L 142 MEQ/L Potassium Level 3.5 MEQ/L 3.1 MEQ/L Chloride Level 109 MEQ/L 112 MEQ/L Carbon Dioxide Level 16.8 MEQ/L 19.9 MEQ/L Anion Gap 11 MEQ/L 10 MEQ/L Estimat Glomerular Filtration Rate 35 ML/MIN 54 ML/MIN Lactic Acid Level 1.6 mmol/L Troponin I 0.02 NG/ML 0.03 NG/ML B-Type Natriuretic Peptide 111 PG/ML Magnesium Level 1.2 MG/DL Microbiology Date/Time Source Procedure Growth Status 05/24/17 10:35 Blood Peripheral Aerobic Blood Culture - Preliminary NO GROWTH IN 1 DAY Resulted 05/24/17 10:35 Blood Peripheral Anaerobic Blood Culture - Preliminary NO GROWTH IN 1 DAY Resulted 05/24/17 10:28 Blood Peripheral Aerobic Blood Culture - Preliminary Gram Positive Rods Resulted 05/24/17 10:28 Blood Peripheral Anaerobic Blood Culture - Preliminary NO GROWTH IN 1 DAY Resulted Imaging Last Impressions Chest X-Ray 05/25/17 0600 Signed Impressions: Service Date/Time: May 03:38 - CONCLUSION: 1. Slightly more prominent patchy airspace disease in the left midlung zone. 2. Stable patchy airspace disease in the right mid to lower lung zones and left lower lung zone. Peter Gonzalez MD Liver Ultrasound 05/24/17 0000 Signed Impressions: Service Date/Time: Wednesday, May 24, 2017 13:48 - CONCLUSION: 1. Mild increased echotexture of the liver may indicate steatosis. 2. Cholelithiasis. Dre Goodman MD Chest CT 05/24/17 0000 Signed Impressions: Service Date/Time: Wednesday, May 24, 2017 13:27 - CONCLUSION: Patchy airspace disease scattered consolidation both lungs. No pleural effusion. Esteban Clarke MD FACR Physical Exam CONSTITUTIONAL/GENERAL: This is a morbidly obese patient, in no apparent distress. On BIPAP 50%, partial face mask TUBES/LINES/DRAINS: SKIN: No jaundice, rashes, or lesions. Skin temperature appropriate. Not diaphoretic. BREASTS: mastectomy scar L breast - well healed HEAD: Atraumatic. Normocephalic. EYES: Pupils equal and round and reactive. Extraocular motions intact. No scleral icterus. No injection or drainage. Fundi not examined. ENT: Hearing grossly normal. Nose without bleeding or purulent drainage. Limited mucosae exam without visible erythema, or lesions. NECK: Trachea midline. Supple, nontender. CARDIOVASCULAR: Regular rate and rhythm without murmurs, gallops, or rubs. No JVD. Peripheral pulses symmetric. Perifery well perfused RESPIRATORY/CHEST: Symmetric, unlabored respirations. Diffuse b/l to auscultation. Breath sounds equal bilaterally. GASTROINTESTINAL: Abdomen soft, non-tender, nondistended. No hepato-splenomegaly , or palpable masses. No guarding. Bowel sounds present. GENITOURINARY: Without palpable bladder distension. MUSCULOSKELETAL: Extremities without clubbing, cyanosis, or edema. NEUROLOGICAL: Awake and alert. Motor and sensory grossly within normal limits. Follows commands. Clear speech Moves all extremities. PSYCHIATRIC: No obvious anxiety/depression. no apparent hallucinations or other psychotic thought process. Assessment & Plan Remarks Assessment and Plan Influenza PNA Respiratory insufficiency: resolved - doing much better HIV, unknown immunosuppression status Morbid obesety COPD Chronic tobaccoism cont current abx cont tamiflu cont HAART [facility] provider (Dr Gupta) fu sputum clx fu blood clx Margaret Judge MD May 25, 2017 15:39
[2017-05-25] MEDS: POTASSIUM CHLORIDE 25 MEQ EFFERVESCENT TAB PO SCH ×2 (16:49→18:21)
[2017-05-25] MEDS: ATORVASTATIN 80 MG TAB PO SCH (21:28)
[2017-05-25] MEDS: MONTELUKAST SODIUM 10 MG TAB PO SCH (21:30)
[2017-05-26] VITALS (15 sets, daily range): BP systolic 136–190; BP diastolic 66–103; PULSE 79–99; RESP 16–36; TEMP 97.5–97.9; O2SAT 92–95
[2017-05-26] MEDS: FAMOTIDINE 20 MG/2 ML VIAL IV PUSH SCH ×2 (01:49→14:51)
[2017-05-26] MEDS: LINEZOLID 600 MG PREMIX 300 ML IV SCH ×2 (01:49→14:51)
[2017-05-26] MEDS: RESP: ALBUTEROL 2.5 MG/IPRATROPIUM 0.5 MG NEB (SCH) NEB ×5 (02:54→19:37)
[2017-05-26] MEDS: CHLORHEXIDINE GLUCONATE 2 % 1 PACK (2 CLOTHS) TOP SCH (04:00)
[2017-05-26] MEDS: INSULIN ASPART SUPPLEMENTAL SCALE SQ SCH ×6 (04:00→20:00)
[2017-05-26 05:16] LABS: AUTOMATED NEUTROPHIL # 7.9 TH/MM3 (1.8-7.7); BASOPHIL % 0.1 % (0.0-2.0); HEMATOCRIT 36.9 % (35.0-46.0); HEMOGLOBIN 12.9 GM/DL (11.6-15.3); LYMPH % 7.8 % (9.0-44.0); LYMPHOCYTE # 0.7 TH/MM3 (1.0-4.8); MEAN CELL VOLUME 92.1 FL (80.0-100.0); MEAN CORPUSCULAR HEMOGLOBIN 32.1 PG (27.0-34.0); MEAN CORPUSCULAR HGB CONC 34.9 % (32.0-36.0); MEAN PLATELET VOLUME 10.9 FL (7.0-11.0); MONO % 5.2 % (0.0-8.0); MONOCYTE # 0.5 TH/MM3 (0-0.9); NEUT % 86.9 % (16.0-70.0); PLATELET COUNT 137 TH/MM3 (150-450); RED BLOOD COUNT 4.01 MIL/MM3 (4.00-5.30); RED CELL DISTRIBUTION WIDTH 17.7 % (11.6-17.2); WHITE BLOOD COUNT 9.1 TH/MM3 (4.0-11.0)
[2017-05-26 06:44] LABS: ALBUMIN 2.1 GM/DL (3.4-5.0); ALKALINE PHOSPHATASE 98 U/L (45-117); ALT (GPT) 117 U/L (10-53); AST (GOT) 67 U/L (15-37); BLOOD UREA NITROGEN 40 MG/DL (7-18); CREATININE 0.85 MG/DL (0.50-1.00); GLOMERULAR FILTRATION RATE 67 ML/MIN (>89); GLUCOSE,RANDOM 160 MG/DL (74-106); SODIUM (NA) 143 MEQ/L (136-145); TOTAL BILIRUBIN ADULT 0.3 MG/DL (0.2-1.0); TOTAL PROTEIN 6.2 GM/DL (6.4-8.2)
[2017-05-26 06:45] LABS: BICARBONATE 18.2 MEQ/L (21.0-32.0); CHLORIDE 115 MEQ/L (98-107)
[2017-05-26] MEDS ORDERED: SODIUM CHLORIDE 0.9% INJ 50 ML ONE ×2 (06:50→23:30)
[2017-05-26] MEDS ORDERED: PIPERACIL-TAZO 3.375 GM PREMIX 50 ML ONE ×2 (06:50→23:30)
[2017-05-26] MEDS: methylPREDNISolone SOD SUCC 125 MG/2 ML VIAL IV PUSH SCH ×3 (06:52→22:57)
[2017-05-26] MEDS: SODIUM CHLOR 0.9% 1000 ML INJ 1,000 ML IV SCH ×2 (06:53→20:25)
[2017-05-26] MEDS: PIPERACIL-TAZO 3.375 GM PREMIX 50 ML IV SCH ×3 (06:54→18:06)
[2017-05-26] MEDS: CHLORHEXIDINE 0.12% (ORAL KIT) 15 ML CUP MT SCH ×2 (08:00→20:00)
[2017-05-26] MEDS: SODIUM CHLORIDE 0.9% FLUSH 10 ML FLUSH IV FLUSH SCH ×2 (09:00→20:27)
[2017-05-26] MEDS: OSELTAMIVIR PHOSPHATE 75 MG CAP PO SCH ×2 (09:03→20:25)
[2017-05-26] MEDS: ABACAVIR SULFATE 300 MG TAB PO SCH (09:04)
[2017-05-26] MEDS: AMIODARONE 200 MG TAB PO SCH ×2 (09:04→20:26)
[2017-05-26] MEDS: ASPIRIN EC 81 MG TABEC PO SCH (09:04)
[2017-05-26] MEDS: CLOPIDOGREL 75 MG TAB PO SCH (09:04)
[2017-05-26] MEDS: CARVEDILOL 12.5 MG TAB PO SCH ×2 (09:04→20:25)
[2017-05-26] MEDS: ENOXAPARIN SODIUM 40 MG/0.4 ML SYRINGE SQ SCH (14:51)
[2017-05-26] MEDS: POTASSIUM CHLOR 40 MEQ PREMIX 100 ML IV SCH ×3 (14:52→22:57)
--- NOTE | 2017-05-26 15:11 | HHI.CCPN ---
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 Currently DNR. Recently diagnosed with influenza pneumonia currently on day 5 of Tamiflu. Fever of 100.7 in the ED. patient was in severe respiratory distress and hypoxemic immediately placed on BiPAP 70% oxygen. Chest x-ray showed bibasilar infiltrate later confirmed with CT chest as multilobar infiltrate/pneumonia. Patient received IV Solu-Medrol and IV Zosyn after 2 blood culture obtained. Patient also also found to be in A. fib with RVR with rates in 140s. CBC showed WBC count 12.2. BUN/cr was 46/1.5 and was normal about a week ago. Critical care medicine was requested to admit the patient. Dr. Erickson evaluated the patient in the ED. She still appears to be in moderate respiratory distress but BiPAP had been removed per patient request. Significant respiratory distress and expressive aphasia limits exam. Patient is breathing approximately 40 breaths per minute, bilateral wheezing and coarse crackles heard. I have added scheduled Solu-Medrol, DuoNeb. Tamiflu will be continued, continue Zosyn and add Zyvox. ID consulted. Continue BiPAP at 02/28. Prognosis is guarded at this time 3: Resting comfortably in bed on nasal cannula, not in any acute distress. 3: Resting comfortably on nasal cannula not in any acute distress. Objective Vital Signs Date Time Temp Pulse Resp B/P (MAP) Pulse Ox O2 Delivery O2 Flow Rate FiO2 05/26/17 12:00 97.8 92 25 150/89 (109) 93 05/26/17 07:56 Nasal Cannula 6.00 05/24/17 23:15 40 Intake and Output 05/26/17 05/26/17 05/27/17 08:00 16:00 00:00 Intake Total 120 ml Output Total 500 ml Balance -380 ml Result Diagram: 05/26/17 0400 05/26/17 0400 Imaging CXR shows bilateral infiltrate CT chest bilateral infiltrate involving multiple lobes Objective Remarks GENERAL: Obese 67-year-old woman laying in bed on nasal cannula not in any acute distress SKIN: Skin is Warm and dry. HEAD: Atraumatic. Normocephalic. EYES: Pupils equal and round. No scleral icterus. ENT: No nasal bleeding or discharge. Mucous membranes dry NECK: Trachea midline. No JVD. CARDIOVASCULAR: No murmur appreciated. S1-S2 irregularly irregular RESPIRATORY: Good air entry bilaterally, scattered rhonchi, no wheezing GASTROINTESTINAL: Abdomen soft, non-tender, nondistended. Hepatic and splenic margins not palpable. MUSCULOSKELETAL: No obvious deformities. No edema. NEUROLOGICAL: Awake and alert. Speech is incomprehensible, history of expressive aphasia. Minimal right sided weakness which is old A/P Assessment and Plan Neuro/Psych: History of left MCA stroke with right hemiparesis Depression Peripheral neuropathy Continue aspirin/Plavix PT/OT once stabilized respiratory prince Hold as needed Xanax, Prozac, Neurontin, Ambien CV: Atrial fibrillation with rapid ventricular response CAD with History of non-STEMI Dyslipidemia Left carotid stenosis History of hypertension Chronic A. fib Cardizem infusion for rate control Continue Home medications Coreg and amiodarone, hold p.o. Cardizem, and losartan Continue aspirin Plavix Check 2 D Echo. Echocardiogram in 2014 EF around 50%. Resp: Acute hypoxemic respiratory failure Multilobar pneumonia recent influenza Acute COPD exacerbation Off BiPAP On maintenance IV fluids IV Solu-Medrol 125 mg 1 and 60 mg every 8 hours DuoNeb every 4 hours scheduled and as needed Broad-spectrum antibiotics with Zosyn, Zyvox, Tamiflu GI: History of hepatitis C History diverticulosis Elevated liver enzymes Advance PO as tolerated. IV Famotidine Check liver and gallbladder ultrasound : Acute kidney injury Gaets will be placed for accurate I's and O's in a critically ill patient IVF as above Endo: Diabetes mellitus Place on sliding scale insulin. Accu-Cheks to maintain euglycemia Heme: Monitor CBC daily. ID: Bilateral pneumonia healthcare associated Reason influenza HIV Placed on Zosyn and Zyvox, and continue Tamiflu for influenza with superadded bacterial pneumonia Continue HAART Consult ID ENDO: Hypokalemia Replace electrolytes as clinically indicated for electrolyte protocol Access Utilized peripheral IVs Prophylaxis GI - Protonix DVT - SCD/Lovenox subcutaneous Consult and transfer to hospitalist service for further medical management, critical care will be signing off at this time, please reconsult if needed. Marcos Martel MD May 26, 2017 15:11
--- NOTE | 2017-05-26 20:19 | HHI.IDPN ---
Subjective Subjective Remarks Delayed entry - pt was seen earlier today around 4 pm Dw RN pt is now on NC O2 , off BIPAP No fever Diarrhea today , 5 BMs Gram positive rods in 1/4 bottles of blood clx (aerobic), another culture with G positive organism No sputum availbale (pt does not expectorate) Antibiotics Abacavir, Epivir, Sustiva, NOrvir zyvox zosyn tamiflu Allergies: Coded Allergies: acetaminophen (Unverified Allergy, Severe, GI UPSET, 11/08/16) hydrocodone (Unverified Allergy, Severe, GI UPSET, 11/08/16) Objective . Vital Signs Date Time Temp Pulse Resp B/P (MAP) Pulse Ox O2 Delivery O2 Flow Rate FiO2 05/26/17 19:38 93 Nasal Cannula 6.00 05/26/17 18:00 94 05/26/17 16:00 97.6 91 29 174/95 (121) 95 05/26/17 16:00 91 05/26/17 14:00 92 05/26/17 12:00 97.8 92 25 150/89 (109) 93 05/26/17 12:00 92 05/26/17 10:00 94 05/26/17 08:00 97.6 88 26 167/91 (116) 94 05/26/17 07:56 92 Nasal Cannula 6.00 05/26/17 07:00 Nasal Cannula 4.00 05/26/17 06:00 93 05/26/17 04:00 97.8 84 16 163/80 (107) 93 05/26/17 04:00 84 05/26/17 02:00 81 05/26/17 00:00 79 05/26/17 00:00 97.9 79 18 136/66 (89) 94 05/25/17 22:00 79 05/25/17 20:42 96 Nasal Cannula 4.00 05/26/17 05/26/17 05/27/17 15:00 23:00 07:00 Intake Total 970 ml Output Total 100 ml Balance 870 ml Intake Oral 520 ml IV Total 450 ml Output Urine Total 100 ml # Voids 3 # Bowel Movements 2 . Laboratory Tests Test 05/25/17 10:31 05/26/17 04:00 White Blood Count 9.6 TH/MM3 9.1 TH/MM3 Red Blood Count 4.14 MIL/MM3 4.01 MIL/MM3 Hemoglobin 13.3 GM/DL 12.9 GM/DL Hematocrit 38.4 % 36.9 % Mean Corpuscular Volume 92.7 FL 92.1 FL Mean Corpuscular Hemoglobin 32.1 PG 32.1 PG Mean Corpuscular Hemoglobin Concent 34.6 % 34.9 % Red Cell Distribution Width 17.3 % 17.7 % Platelet Count 144 TH/MM3 137 TH/MM3 Mean Platelet Volume 11.0 FL 10.9 FL Neutrophils (%) (Auto) 84.9 % 86.9 % Lymphocytes (%) (Auto) 9.2 % 7.8 % Monocytes (%) (Auto) 5.8 % 5.2 % Eosinophils (%) (Auto) 0.0 % 0.0 % Basophils (%) (Auto) 0.1 % 0.1 % Neutrophils # (Auto) 8.1 TH/MM3 7.9 TH/MM3 Lymphocytes # (Auto) 0.9 TH/MM3 0.7 TH/MM3 Monocytes # (Auto) 0.6 TH/MM3 0.5 TH/MM3 Eosinophils # (Auto) 0.0 TH/MM3 0.0 TH/MM3 Basophils # (Auto) 0.0 TH/MM3 0.0 TH/MM3 CBC Comment DIFF FINAL AUTO DIFF Differential Comment AUTO DIFF CONFIRMED Laboratory Tests Test 05/25/17 10:31 05/26/17 04:00 Blood Urea Nitrogen 40 MG/DL 40 MG/DL Creatinine 1.02 MG/DL 0.85 MG/DL Random Glucose 151 MG/DL 160 MG/DL Total Protein 6.7 GM/DL 6.2 GM/DL Albumin 2.3 GM/DL 2.1 GM/DL Calcium Level 8.0 MG/DL 8.0 MG/DL Alkaline Phosphatase 86 U/L 98 U/L Aspartate Amino Transf (AST/SGOT) 145 U/L 67 U/L Alanine Aminotransferase (ALT/SGPT) 169 U/L 117 U/L Total Bilirubin 0.4 MG/DL 0.3 MG/DL Sodium Level 142 MEQ/L 143 MEQ/L Potassium Level 3.1 MEQ/L 2.7 MEQ/L Chloride Level 112 MEQ/L 115 MEQ/L Carbon Dioxide Level 19.9 MEQ/L 18.2 MEQ/L Anion Gap 10 MEQ/L 10 MEQ/L Estimat Glomerular Filtration Rate 54 ML/MIN 67 ML/MIN Microbiology Date/Time Source Procedure Growth Status 05/24/17 10:35 Blood Peripheral Aerobic Blood Culture - Preliminary Gram Positive Cocci Resulted 05/24/17 10:35 Blood Peripheral Anaerobic Blood Culture - Preliminary NO GROWTH IN 2 DAYS Resulted 05/24/17 10:28 Blood Peripheral Aerobic Blood Culture - Final Bacillus Species Not Anthracis Resulted 05/24/17 10:28 Blood Peripheral Anaerobic Blood Culture - Preliminary NO GROWTH IN 2 DAYS Resulted Imaging Last Impressions Chest X-Ray 05/25/17 0600 Signed Impressions: Service Date/Time: May 03:38 - CONCLUSION: 1. Slightly more prominent patchy airspace disease in the left midlung zone. 2. Stable patchy airspace disease in the right mid to lower lung zones and left lower lung zone. Peter Gonzalez MD Liver Ultrasound 05/24/17 0000 Signed Impressions: Service Date/Time: Wednesday, May 24, 2017 13:48 - CONCLUSION: 1. Mild increased echotexture of the liver may indicate steatosis. 2. Cholelithiasis. Dre Goodman MD Chest CT 05/24/17 0000 Signed Impressions: Service Date/Time: Wednesday, May 24, 2017 13:27 - CONCLUSION: Patchy airspace disease scattered consolidation both lungs. No pleural effusion. Esteban Clarke MD FACR Physical Exam CONSTITUTIONAL/GENERAL: This is a morbidly obese patient, in no apparent distress. TUBES/LINES/DRAINS: SKIN: No jaundice, rashes, or lesions. Skin temperature appropriate. Not diaphoretic. BREASTS: mastectomy scar L breast - well healed HEAD: Atraumatic. Normocephalic. EYES: Pupils equal and round and reactive. Extraocular motions intact. No scleral icterus. No injection or drainage. Fundi not examined. ENT: Hearing grossly normal. Nose without bleeding or purulent drainage. Limited mucosae exam without visible erythema, or lesions. NECK: Trachea midline. Supple, nontender. CARDIOVASCULAR: Regular rate and rhythm without murmurs, gallops, or rubs. No JVD. Peripheral pulses symmetric. Perifery well perfused RESPIRATORY/CHEST: Symmetric, unlabored respirations. Diffuse b/l rhonchi to auscultation. Breath sounds equal bilaterally. GASTROINTESTINAL: Abdomen soft, non-tender, distended. No hepato-splenomegaly, or palpable masses. No guarding. Bowel sounds present. GENITOURINARY: Without palpable bladder distension. MUSCULOSKELETAL: Extremities without clubbing, cyanosis, or edema. NEUROLOGICAL: Awake and alert. Motor and sensory grossly within normal limits. Follows commands. Clear speech Moves all extremities. PSYCHIATRIC: cooperativ Assessment & Plan Remarks Assessment and Plan Influenza PNA Respiratory insufficiency: resolved - doing much better HIV, unknown immunosuppression status Morbid obesety COPD Chronic tobaccoism Abx associated diarrhea - new issue cont current abx cont tamiflu cont HAART [facility] provider (Dr Gupta) fu sputum clx fu blood clx chk stool for C.diff Margaret Judge MD May 26, 2017 20:19
[2017-05-26] MEDS: ATORVASTATIN 80 MG TAB PO SCH (20:26)
[2017-05-26] MEDS: MONTELUKAST SODIUM 10 MG TAB PO SCH (20:26)
[2017-05-27] VITALS (20 sets, daily range): BP systolic 146–207; BP diastolic 73–104; PULSE 92–114; RESP 20–31; TEMP 97.5–98; O2SAT 91–98
[2017-05-27] MEDS: RESP: ALBUTEROL 2.5 MG/IPRATROPIUM 0.5 MG NEB (SCH) NEB ×7 (00:03→23:53)
[2017-05-27] MEDS: PIPERACIL-TAZO 3.375 GM PREMIX 50 ML IV SCH ×4 (00:16→17:30)
[2017-05-27] MEDS: hydrALAZINE HCL 20 MG/ML VIAL IV PRN (00:17)
[2017-05-27] MEDS: MORPHINE SULFATE 4 MG/ML INJ IV PUSH PRN ×3 (00:57→13:20)
[2017-05-27] MEDS: FAMOTIDINE 20 MG/2 ML VIAL IV PUSH SCH ×2 (02:53→15:00)
[2017-05-27] MEDS: CHLORHEXIDINE GLUCONATE 2 % 1 PACK (2 CLOTHS) TOP SCH (02:53)
[2017-05-27] MEDS: LINEZOLID 600 MG PREMIX 300 ML IV SCH ×2 (02:53→13:20)
[2017-05-27] MEDS: INSULIN ASPART SUPPLEMENTAL SCALE SQ SCH ×6 (04:00→20:00)
[2017-05-27] MEDS: methylPREDNISolone SOD SUCC 125 MG/2 ML VIAL IV PUSH SCH ×3 (06:11→21:54)
[2017-05-27] MEDS: CHLORHEXIDINE 0.12% (ORAL KIT) 15 ML CUP MT SCH ×2 (08:00→20:00)
[2017-05-27] MEDS: ABACAVIR SULFATE 300 MG TAB PO SCH (08:47)
[2017-05-27] MEDS: OSELTAMIVIR PHOSPHATE 75 MG CAP PO SCH ×2 (08:48→21:00)
[2017-05-27] MEDS: ASPIRIN EC 81 MG TABEC PO SCH (08:48)
[2017-05-27] MEDS: AMIODARONE 200 MG TAB PO SCH ×2 (08:48→21:00)
[2017-05-27] MEDS: CLOPIDOGREL 75 MG TAB PO SCH (08:48)
[2017-05-27] MEDS: SODIUM CHLORIDE 0.9% FLUSH 10 ML FLUSH IV FLUSH SCH ×2 (08:49→21:53)
[2017-05-27] MEDS: CARVEDILOL 12.5 MG TAB PO SCH ×2 (08:49→21:00)
[2017-05-27] MEDS ORDERED: PIPERACIL-TAZO 3.375 GM PREMIX 50 ML ONE ×2 (13:14→17:13)
[2017-05-27] MEDS ORDERED: SODIUM CHLORIDE 0.9% INJ 50 ML ONE ×2 (13:14→17:13)
[2017-05-27] MEDS: SODIUM CHLOR 0.9% 1000 ML INJ 1,000 ML IV SCH (13:19)
[2017-05-27] MEDS: ENOXAPARIN SODIUM 40 MG/0.4 ML SYRINGE SQ SCH (15:00)
--- NOTE | 2017-05-27 16:17 | HHI.IDPN ---
Subjective Subjective Remarks doing worse , Back on BIPAP 50% 10/5 Lethargic not expectorating cont to have liquid stool BC growing coag neg stapn and bacillus in diferent sets Antibiotics Abacavir, Epivir, Sustiva, NOrvir zyvox zosyn tamiflu Allergies: Coded Allergies: acetaminophen (Unverified Allergy, Severe, GI UPSET, 11/08/16) hydrocodone (Unverified Allergy, Severe, GI UPSET, 11/08/16) Objective . Vital Signs Date Time Temp Pulse Resp B/P (MAP) Pulse Ox O2 Delivery O2 Flow Rate FiO2 05/27/17 14:58 94 50 05/27/17 14:00 113 05/27/17 12:00 99 05/27/17 12:00 98.0 110 22 177/85 (115) 94 05/27/17 10:50 98 50 05/27/17 10:00 99 05/27/17 08:00 97.5 107 22 160/90 (113) 94 05/27/17 08:00 99 05/27/17 07:32 96 50 05/27/17 06:00 108 05/27/17 04:00 107 05/27/17 04:00 97.5 107 22 151/85 (107) 94 05/27/17 03:57 95 50 05/27/17 02:00 108 05/27/17 00:59 97 Non-Rebreather 15.00 100 05/27/17 00:38 95 50 05/27/17 00:00 92 31 207/104 (138) 92 05/27/17 00:00 92 05/26/17 22:00 94 05/26/17 20:02 96 32 190/89 (122) 93 05/26/17 20:00 99 05/26/17 20:00 97.5 99 36 181/103 (129) 94 05/26/17 19:38 93 Nasal Cannula 6.00 05/26/17 19:00 95 Nasal Cannula 6.00 05/26/17 18:00 94 . Laboratory Tests Test 05/26/17 04:00 White Blood Count 9.1 TH/MM3 Red Blood Count 4.01 MIL/MM3 Hemoglobin 12.9 GM/DL Hematocrit 36.9 % Mean Corpuscular Volume 92.1 FL Mean Corpuscular Hemoglobin 32.1 PG Mean Corpuscular Hemoglobin Concent 34.9 % Red Cell Distribution Width 17.7 % Platelet Count 137 TH/MM3 Mean Platelet Volume 10.9 FL Neutrophils (%) (Auto) 86.9 % Lymphocytes (%) (Auto) 7.8 % Monocytes (%) (Auto) 5.2 % Eosinophils (%) (Auto) 0.0 % Basophils (%) (Auto) 0.1 % Neutrophils # (Auto) 7.9 TH/MM3 Lymphocytes # (Auto) 0.7 TH/MM3 Monocytes # (Auto) 0.5 TH/MM3 Eosinophils # (Auto) 0.0 TH/MM3 Basophils # (Auto) 0.0 TH/MM3 CBC Comment AUTO DIFF Differential Comment AUTO DIFF CONFIRMED Laboratory Tests Test 05/26/17 04:00 Blood Urea Nitrogen 40 MG/DL Creatinine 0.85 MG/DL Random Glucose 160 MG/DL Total Protein 6.2 GM/DL Albumin 2.1 GM/DL Calcium Level 8.0 MG/DL Alkaline Phosphatase 98 U/L Aspartate Amino Transf (AST/SGOT) 67 U/L Alanine Aminotransferase (ALT/SGPT) 117 U/L Total Bilirubin 0.3 MG/DL Sodium Level 143 MEQ/L Potassium Level 2.7 MEQ/L Chloride Level 115 MEQ/L Carbon Dioxide Level 18.2 MEQ/L Anion Gap 10 MEQ/L Estimat Glomerular Filtration Rate 67 ML/MIN Imaging Last Impressions Chest X-Ray 05/25/17 0600 Signed Impressions: Service Date/Time: May 03:38 - CONCLUSION: 1. Slightly more prominent patchy airspace disease in the left midlung zone. 2. Stable patchy airspace disease in the right mid to lower lung zones and left lower lung zone. Peter Gonzalez MD Liver Ultrasound 05/24/17 0000 Signed Impressions: Service Date/Time: Wednesday, May 24, 2017 13:48 - CONCLUSION: 1. Mild increased echotexture of the liver may indicate steatosis. 2. Cholelithiasis. Dre Goodman MD Chest CT 05/24/17 0000 Signed Impressions: Service Date/Time: Wednesday, May 24, 2017 13:27 - CONCLUSION: Patchy airspace disease scattered consolidation both lungs. No pleural effusion. Esteban Clarke MD FACR Physical Exam CONSTITUTIONAL/GENERAL: This is a morbidly obese patient, in mild resp distress. TUBES/LINES/DRAINS: SKIN: No jaundice, rashes, or lesions. Skin temperature appropriate. Not diaphoretic. BREASTS: mastectomy scar L breast - well healed HEAD: Atraumatic. Normocephalic. EYES: Pupils equal and round and reactive. Extraocular motions intact. No scleral icterus. No injection or drainage. Fundi not examined. ENT: Hearing grossly normal. Nose without bleeding or purulent drainage. Limited mucosae exam without visible erythema, or lesions. NECK: Trachea midline. Supple, nontender. CARDIOVASCULAR: Regular rate and rhythm without murmurs, gallops, or rubs. No JVD. Peripheral pulses symmetric. Perifery well perfused RESPIRATORY/CHEST: Symmetric, unlabored respirations. cont to haveiffuse b/l rhonchi to auscultation. Breath sounds equal bilaterally. GASTROINTESTINAL: Abdomen soft, non-tender, distended. No hepato-splenomegaly, or palpable masses. No guarding. Bowel sounds present. GENITOURINARY: Without palpable bladder distension. MUSCULOSKELETAL: Extremities without clubbing, cyanosis, or edema. NEUROLOGICAL: Very lethargic but arousable Motor and sensory grossly within normal limits. Follows commands. Clear speech Moves all extremities. PSYCHIATRIC: cooperativ Assessment & Plan Remarks Assessment and Plan Influenza PNA Impending resp failure: requires non ivasive vent'n HIV, unknown immunosuppression status Morbid obesety COPD Chronic tobaccoism Abx associated diarrhea - new issue Gram positive bactremia 2/2 different organisms - cw contamination cont current abx cont tamiflu cont HAART fu sputum clx fu blood clx chk stool for C.diff repeat CXR CD4 cytology for PCP Margaret Judge MD May 27, 2017 16:17
--- NOTE | 2017-05-27 16:59 | RADRPT ---
EXAM DATE/TIME: 05/27/2017 16:36 [facility] COMPARISON: CHEST SINGLE AP, May 25, 2017, 3:38. INDICATIONS : Respiratory failure. MEDICAL HISTORY : Hypertension. Myocardial infarction. Stroke. A-Fib Diabetes SURGICAL HISTORY : Left shoulder. ENCOUNTER: Subsequent ACUITY: 4 - 6 days PAIN SCORE: Non-responsive. LOCATION: Bilateral chest FINDINGS: Deterioration in the appearance of the chest with cardiomegaly and increasing interstitial changes. There is no pneumothorax. The portion of the bony skeleton visualized is unremarkable. CONCLUSION: Deterioration with increasing interstitial changes both lungs Esteban Clarke MD FACR on May 27, 2017 at 16:58 Board Certified Radiologist. This report was verified electronically.
[2017-05-27] MEDS ORDERED: methylPREDNISolone SOD SUCC 125 MG/2 ML VIAL IV PUSH ONE (17:30)
[2017-05-27] MEDS ORDERED: FUROSEMIDE 40 MG/4 ML VIAL IV PUSH ONE (17:30)
[2017-05-27] MEDS ORDERED: MORPHINE SULFATE 4 MG/ML INJ IV PUSH ONE (17:30)
[2017-05-27] MEDS: FUROSEMIDE 40 MG/4 ML VIAL IV PUSH SCH (17:31)
[2017-05-27] MEDS ORDERED: DILTIAZEM HCL 25 MG/5 ML VIAL IV PUSH ONE (17:45)
--- NOTE | 2017-05-27 17:45 | HHI.PR ---
Subjective Remarks Patient with severe respiratory distress currently on BiPAP at 50%. The patient is lethargic but arousable. Patient is satting 93-94%. Objective Vitals Vital Signs Date Time Temp Pulse Resp B/P (MAP) Pulse Ox O2 Delivery O2 Flow Rate FiO2 05/27/17 16:00 98.0 94 22 146/84 (104) 94 05/27/17 16:00 113 05/27/17 14:58 94 50 05/27/17 14:00 113 05/27/17 12:00 99 05/27/17 12:00 98.0 110 22 177/85 (115) 94 05/27/17 10:50 98 50 05/27/17 10:00 99 05/27/17 08:00 97.5 107 22 160/90 (113) 94 05/27/17 08:00 99 05/27/17 07:32 96 50 05/27/17 06:00 108 05/27/17 04:00 107 05/27/17 04:00 97.5 107 22 151/85 (107) 94 05/27/17 03:57 95 50 05/27/17 02:00 108 05/27/17 00:59 97 Non-Rebreather 15.00 100 05/27/17 00:38 95 50 05/27/17 00:00 92 31 207/104 (138) 92 05/27/17 00:00 92 05/26/17 22:00 94 05/26/17 20:02 96 32 190/89 (122) 93 05/26/17 20:00 99 05/26/17 20:00 97.5 99 36 181/103 (129) 94 05/26/17 19:38 93 Nasal Cannula 6.00 05/26/17 19:00 95 Nasal Cannula 6.00 05/26/17 18:00 94 I/O 05/26/17 05/26/17 05/26/17 05/27/17 05/27/17 05/27/17 07:00 15:00 23:00 07:00 15:00 23:00 Intake Total 120 ml 1070 ml 690 ml Output Total 500 ml 100 ml Balance -380 ml 970 ml 690 ml Intake Oral 120 ml 520 ml 240 ml IV Total 550 ml 450 ml Output Urine Total 500 ml 100 ml # Voids 3 4 # Bowel Movements 3 2 2 Result Diagram: 3/2/18 0400 05/26/17 0400 Imaging Last Impressions Chest X-Ray 05/27/17 0000 Signed Impressions: Service Date/Time: Saturday, May 27, 2017 16:36 - CONCLUSION: Deterioration with increasing interstitial changes both lungs Esteban Clarke MD FACR Liver Ultrasound 05/24/17 0000 Signed Impressions: Service Date/Time: Wednesday, May 24, 2017 13:48 - CONCLUSION: 1. Mild increased echotexture of the liver may indicate steatosis. 2. Cholelithiasis. Dre Goodman MD Chest CT 05/24/17 0000 Signed Impressions: Service Date/Time: Wednesday, May 24, 2017 13:27 - CONCLUSION: Patchy airspace disease scattered consolidation both lungs. No pleural effusion. Esteban Clarke MD FACR Objective Remarks Patient is in severe respiratory distress using accessory muscles of respiration. Cyanotic. There is bilateral rales in both lungs, diminished overall. S1-S2 present, tachycardic, no murmurs rubs or gallops appreciated. Trace edema in lower extremities. Medications and IVs Last Impressions Chest X-Ray 05/27/17 0000 Signed Impressions: Service Date/Time: Saturday, May 27, 2017 16:36 - CONCLUSION: Deterioration with increasing interstitial changes both lungs Esteban Clarke MD FACR Liver Ultrasound 05/24/17 0000 Signed Impressions: Service Date/Time: Wednesday, May 24, 2017 13:48 - CONCLUSION: 1. Mild increased echotexture of the liver may indicate steatosis. 2. Cholelithiasis. Dre Goodman MD Chest CT 05/24/17 0000 Signed Impressions: Service Date/Time: Wednesday, May 24, 2017 13:27 - CONCLUSION: Patchy airspace disease scattered consolidation both lungs. No pleural effusion. Esteban Clarke MD FACR A/P Problem List: (1) Acute hypoxemic respiratory failure ICD Code: J96.01 - Acute respiratory failure with hypoxia Status: Acute (2) Acute exacerbation of chronic obstructive pulmonary disease (COPD) ICD Code: J44.1 - Chronic obstructive pulmonary disease with (acute) exacerbation (3) Severe sepsis ICD Code: A41.9 - Sepsis, unspecified organism; R65.20 - Severe sepsis without septic shock (4) Healthcare-associated pneumonia ICD Code: J18.9 - Pneumonia, unspecified organism (5) Bilateral multilobar pneumonia (6) Influenza ICD Code: J11.1 - Influenza due to unidentified influenza virus with other respiratory manifestations (7) Acute kidney injury ICD Code: N17.9 - Acute kidney failure, unspecified (8) Atrial fibrillation with RVR ICD Code: I48.91 - Unspecified atrial fibrillation Status: Acute (9) Atrial fibrillation ICD Code: I48.91 - Unspecified atrial fibrillation Status: Acute (10) Expressive aphasia ICD Code: R47.01 - Aphasia Status: Acute (11) Depression ICD Code: F32.9 - Major depressive disorder, single episode, unspecified Status: Chronic (12) Hypertension ICD Code: I10 - Essential (primary) hypertension Status: Chronic (13) HLD (hyperlipidemia) ICD Code: E78.5 - Hyperlipidemia, unspecified Status: Chronic (14) Left acute arterial ischemic stroke, MCA (middle cerebral artery) ICD Code: I63.512 - Cerebral infarction due to unspecified occlusion or stenosis of left middle cerebral artery Status: Acute (15) History of diabetes mellitus ICD Code: Z86.39 - Personal history of other endocrine, nutritional and metabolic disease Status: Chronic (16) Left carotid stenosis ICD Code: I65.22 - Occlusion and stenosis of left carotid artery Status: Acute Assessment and Plan Neuro/Psych: History of left MCA stroke with right hemiparesis Depression Peripheral neuropathy Encephalopathy Continue aspirin/Plavix PT/OT once stabilized respiratory prince Hold as needed Xanax, Prozac, Neurontin, Ambien 3/3 suspect colopathy secondary to CO2 narcosis since patient is in respiratory distress on BiPAP. I will obtain an ABG. Continue to monitor neurological status. CV: Atrial fibrillation with rapid ventricular response CAD with History of non-STEMI Dyslipidemia Left carotid stenosis History of hypertension Chronic A. fib Cardizem infusion for rate control Continue Home medications Coreg and amiodarone, hold p.o. Cardizem, and losartan Continue aspirin Plavix Check 2 D Echo. Echocardiogram in 2014 EF around 50%. 3/3 patient on A. fib with RVR. Currently not on Cardizem infusion. Heart rate in the high 130s. Ordered EKG stat. Will give Cardizem IV bolus and placed on Cardizem drip. Will check cardiac enzymes, TSH free T4. Resp: Acute hypoxemic respiratory failure Multilobar pneumonia recent influenza Acute COPD exacerbation Off BiPAP DuoNeb every 4 hours scheduled and as needed Broad-spectrum antibiotics with Zosyn, Zyvox, Tamiflu 05/27 x-ray shows deterioration with decreasing interstitial changes in both lungs , reviewed by me and likely consistent with acute pulmonary edema. I will obtain an ABG stat, ordered Lasix 60 mg IV once and 40 mg IV twice daily, 125 mg of IV Solu-Medrol and 16 g IV every 8 hours. Discontinue IV fluids. Order stat labs. Discussed the case with Dr. Martel who states the patient DNR/DNI. Nurse is trying to get in touch with family or contact available. I will change the BiPAP setting to 02/28. GI: History of hepatitis C History diverticulosis Elevated liver enzymes Advance PO as tolerated. IV Famotidine Check liver and gallbladder ultrasound : Acute kidney injury Gates will be placed for accurate I's and O's in a critically ill patient IVF as above Endo: Diabetes mellitus Place on sliding scale insulin. Accu-Cheks to maintain euglycemia Heme: Monitor CBC daily. ID: Bilateral pneumonia healthcare associated Reason influenza HIV Placed on Zosyn and Zyvox, and continue Tamiflu for influenza with superadded bacterial pneumonia Continue HAART Antibiotics as per ID. ENDO: Hypokalemia Replace electrolytes as clinically indicated for electrolyte protocol 05/27. Obtain stat labs, CBC with differential, BMP, magnesium and phosphorus. Access Utilized peripheral IVs Prophylaxis GI - Protonix DVT - SCD/Lovenox subcutaneous Discharge Planning Patient with poor prognosis and severe respiratory distress. Case discussed with food service substitute Dr. Martel, RN. PAtient is DNR/DNI. 45 minutes of critical care time is spent on patient care. Problem Qualifiers (1) Atrial fibrillation: Qualified Codes: I48.91 - Unspecified atrial fibrillation (2) Depression: Qualified Codes: F32.9 - Major depressive disorder, single episode, unspecified Rai Rosenthal MD May 27, 2017 17:45
[2017-05-27 17:51] LABS: AUTOMATED NEUTROPHIL # 17.5 TH/MM3 (1.8-7.7); BASOPHIL % 0.1 % (0.0-2.0); HEMATOCRIT 43.2 % (35.0-46.0); HEMOGLOBIN 14.9 GM/DL (11.6-15.3); LYMPH % 5.3 % (9.0-44.0); MEAN CELL VOLUME 91.7 FL (80.0-100.0); MEAN CORPUSCULAR HEMOGLOBIN 31.7 PG (27.0-34.0); MEAN CORPUSCULAR HGB CONC 34.5 % (32.0-36.0); MEAN PLATELET VOLUME 9.9 FL (7.0-11.0); MONO % 4.5 % (0.0-8.0); MONOCYTE # 0.9 TH/MM3 (0-0.9); NEUT % 90.1 % (16.0-70.0); PLATELET COUNT 250 TH/MM3 (150-450); RED BLOOD COUNT 4.71 MIL/MM3 (4.00-5.30); RED CELL DISTRIBUTION WIDTH 17.5 % (11.6-17.2); WHITE BLOOD COUNT 19.4 TH/MM3 (4.0-11.0)
[2017-05-27] MEDS: DILTIAZEM INJ 125 MG in SODIUM CHLORIDE 0.9% INJ 100 ML IV PRN (17:58)
[2017-05-27] MEDS ORDERED: DILTIAZEM HCL 25 MG/5 ML VIAL IV PUSH PRN (18:00)
[2017-05-27 18:07] LABS: CALCIUM 8.3 MG/DL (8.5-10.1); CREATININE 0.89 MG/DL (0.50-1.00); PHOSPHORUS 2.1 MG/DL (2.5-4.9)
[2017-05-27 18:41] LABS: BANDS 3 % (0-6); LYMPHOCYTES 2 % (9-44); MONOCYTES 4 % (0-8); MYELOCYTES 5 % (0-0); NEUTROPHIL # MANUAL DIFF 18.2 TH/MM3 (1.8-7.7); POLYS (SEG NEUTROPHILS) 86 % (16-70)
[2017-05-27] MEDS ORDERED: SODIUM PHOSPHATE INJ 15 MMOL in SODIUM CHLORIDE 0.9% INJ 150 ML IV ONE (20:00)
[2017-05-27 20:43] LABS: FREE T4 1.2 NG/DL (0.76-1.46); TROPONIN I 0.02 NG/ML (0.02-0.05)
[2017-05-27] MEDS: ATORVASTATIN 80 MG TAB PO SCH (21:00)
[2017-05-27] MEDS: MONTELUKAST SODIUM 10 MG TAB PO SCH (21:00)
[2017-05-28] VITALS (20 sets, daily range): BP systolic 129–179; BP diastolic 76–100; PULSE 109–144; RESP 18–30; TEMP 99–100.3; O2SAT 91–100
[2017-05-28] MEDS: PIPERACIL-TAZO 3.375 GM PREMIX 50 ML IV SCH ×5 (00:02→20:08)
[2017-05-28 01:22] LABS: BILIRUBIN, URINE NEG (NEG); BLOOD, URINE NEG (NEG); GLUCOSE,URINE NEG (NEG); HYALINE CAST, URINE 3 /lpf (RARE); KETONE, URINE NEG (NEG); NITRITE,URINE NEG (NEG); SQUAMOUS EPITHELIAL CELL URINE 2 /hpf (0-5); URINE COLOR YELLOW (YELLW/STRAW); URINE LEUKOCYTE ESTERASE NEG (NEG)
[2017-05-28] MEDS: LINEZOLID 600 MG PREMIX 300 ML IV SCH ×2 (01:28→12:53)
[2017-05-28] MEDS: FAMOTIDINE 20 MG/2 ML VIAL IV PUSH SCH ×2 (01:28→15:43)
[2017-05-28 02:36] LABS: TROPONIN I 0.02 NG/ML (0.02-0.05)
[2017-05-28] MEDS: RESP: ALBUTEROL 2.5 MG/IPRATROPIUM 0.5 MG NEB (SCH) NEB ×4 (02:59→14:02)
[2017-05-28] MEDS: CHLORHEXIDINE GLUCONATE 2 % 1 PACK (2 CLOTHS) TOP SCH (03:51)
[2017-05-28] MEDS: INSULIN ASPART SUPPLEMENTAL SCALE SQ SCH ×5 (04:00→21:17)
[2017-05-28] MEDS: hydrALAZINE HCL 20 MG/ML VIAL IV PRN (04:09)
[2017-05-28] MEDS: methylPREDNISolone SOD SUCC 125 MG/2 ML VIAL IV PUSH SCH ×3 (04:10→18:00)
[2017-05-28] MEDS: DILTIAZEM INJ 125 MG in SODIUM CHLORIDE 0.9% INJ 100 ML IV PRN ×3 (06:46→23:13)
[2017-05-28] MEDS: CHLORHEXIDINE 0.12% (ORAL KIT) 15 ML CUP MT SCH ×2 (08:00→20:00)
[2017-05-28] MEDS: OSELTAMIVIR PHOSPHATE 75 MG CAP PO SCH ×2 (08:58→21:00)
[2017-05-28] MEDS: CLOPIDOGREL 75 MG TAB PO SCH (08:58)
[2017-05-28] MEDS: AMIODARONE 200 MG TAB PO SCH ×2 (08:58→21:00)
[2017-05-28] MEDS: ASPIRIN EC 81 MG TABEC PO SCH (08:58)
[2017-05-28] MEDS: CARVEDILOL 12.5 MG TAB PO SCH ×2 (08:58→21:00)
[2017-05-28] MEDS: ABACAVIR SULFATE 300 MG TAB PO SCH (08:59)
[2017-05-28] MEDS: FUROSEMIDE 40 MG/4 ML VIAL IV PUSH SCH ×2 (08:59→18:00)
[2017-05-28] MEDS: SODIUM CHLORIDE 0.9% FLUSH 10 ML FLUSH IV FLUSH SCH ×2 (09:00→21:17)
--- NOTE | 2017-05-28 09:46 | RADRPT ---
EXAM DATE/TIME: 05/28/2017 09:04 [facility] COMPARISON: CHEST SINGLE AP, May 27, 2017, 16:36. INDICATIONS : Respiratory failure. MEDICAL HISTORY : Hypertension. Myocardial infarction. Stroke. A-Fib Diabetes. SURGICAL HISTORY : Left shoulder. ENCOUNTER: Subsequent ACUITY: 1 week PAIN SCORE: Non-responsive. LOCATION: Bilateral chest FINDINGS: Heart is enlarged. Mild interstitial change persists, improved in the interval there is no pneumotho rax or significant effusion. The portion of the bony skeleton visualized is unremarkable. CONCLUSION: The improvement with less interstitial edema. Esteban Clarke MD FACR on May 28, 2017 at 9:44 Board Certified Radiologist. This report was verified electronically.
--- NOTE | 2017-05-28 10:22 | EKG ---
Date Performed: 05/27/2017 Time Performed: 17:45:01 PTAGE: 67 years EKG: ATRIAL FIBRILLATION WITH RAPID VENTRICULAR RESPONSE POSSIBLE RIGHT VENTRICULAR HYPERTROPHY POSSIBLE ANTERIOR MYOCARDIAL INFARCTION , PROBABLY OLD ABNORMAL ECG PREVIOUS TRACING : 05/24/2017 10.37 DOCTOR: Cade Azul Interpretating Date/Time 05/28/2017 10:20:59
[2017-05-28] MEDS ORDERED: SODIUM CHLORIDE 0.9% INJ 50 ML ONE ×2 (10:44→18:41)
[2017-05-28] MEDS ORDERED: PIPERACIL-TAZO 3.375 GM PREMIX 50 ML ONE ×2 (10:44→18:41)
[2017-05-28 11:03] LABS: TROPONIN I 0.02 NG/ML (0.02-0.05)
[2017-05-28 13:41] LABS: AUTOMATED NEUTROPHIL # 14.2 TH/MM3 (1.8-7.7); BASOPHIL % 0.1 % (0.0-2.0); HEMATOCRIT 44.6 % (35.0-46.0); HEMOGLOBIN 15.4 GM/DL (11.6-15.3); LYMPH % 6.1 % (9.0-44.0); MEAN CELL VOLUME 91.8 FL (80.0-100.0); MEAN CORPUSCULAR HEMOGLOBIN 31.8 PG (27.0-34.0); MEAN CORPUSCULAR HGB CONC 34.7 % (32.0-36.0); MEAN PLATELET VOLUME 9.7 FL (7.0-11.0); MONO % 7.5 % (0.0-8.0); MONOCYTE # 1.2 TH/MM3 (0-0.9); NEUT % 86.3 % (16.0-70.0); PLATELET COUNT 246 TH/MM3 (150-450); RED BLOOD COUNT 4.85 MIL/MM3 (4.00-5.30); RED CELL DISTRIBUTION WIDTH 17.8 % (11.6-17.2); WHITE BLOOD COUNT 16.5 TH/MM3 (4.0-11.0)
[2017-05-28 14:41] LABS: ALBUMIN 2.6 GM/DL (3.4-5.0); ALKALINE PHOSPHATASE 108 U/L (45-117); ALT (GPT) 69 U/L (10-53); AST (GOT) 30 U/L (15-37); BICARBONATE 21.6 MEQ/L (21.0-32.0); BLOOD UREA NITROGEN 41 MG/DL (7-18); CALCIUM 8.8 MG/DL (8.5-10.1); CHLORIDE 116 MEQ/L (98-107); CREATININE 0.97 MG/DL (0.50-1.00); GLOMERULAR FILTRATION RATE 58 ML/MIN (>89); GLUCOSE,RANDOM 208 MG/DL (74-106); PHOSPHORUS 1.7 MG/DL (2.5-4.9); SODIUM (NA) 149 MEQ/L (136-145); TOTAL BILIRUBIN ADULT 0.4 MG/DL (0.2-1.0); TOTAL PROTEIN 7.3 GM/DL (6.4-8.2)
[2017-05-28] MEDS ORDERED: MAGNESIUM SULFATE INJ 4 GM in SODIUM CHLORIDE 0.9% INJ 92 ML IV PRN (15:00)
[2017-05-28] MEDS ORDERED: POTASSIUM PHOSPHATE MONOBASIC 500 MG TAB PO/TUBE PRN (15:00)
[2017-05-28] MEDS ORDERED: SODIUM PHOSPHATE INJ 30 MMOL in SODIUM CHLOR 0.9% 250 ML INJ 240 ML IV PRN (15:00)
[2017-05-28] MEDS ORDERED: POTASSIUM CHLORIDE 25 MEQ EFFERVESCENT TAB PO PRN (15:00)
[2017-05-28] MEDS ORDERED: POTASSIUM PHOSPHATE MONOBASIC 500 MG TAB PO PRN (15:00)
[2017-05-28] MEDS ORDERED: SODIUM PHOSPHATE INJ 15 MMOL in SODIUM CHLORIDE 0.9% INJ 150 ML IV ONE (15:00)
[2017-05-28] MEDS ORDERED: MAGNESIUM OXIDE 400 MG TAB PO PRN (15:00)
[2017-05-28] MEDS ORDERED: POTASSIUM CHLOR 40 MEQ PREMIX 100 ML IV PRN ×2 (15:00)
[2017-05-28] MEDS ORDERED: POTASSIUM PHOSPHATE INJ 30 MMOL in SODIUM CHLOR 0.9% 250 ML INJ 250 ML IV PRN (15:00)
[2017-05-28] MEDS ORDERED: POTASSIUM CHLOR 20 MEQ PREMIX 100 ML IV PRN (15:00)
[2017-05-28] MEDS ORDERED: MAGNESIUM SULFATE INJ 2 GM in SODIUM CHLORIDE 0.9% INJ 96 ML IV PRN (15:00)
--- NOTE | 2017-05-28 15:22 | HHI.PR ---
Subjective Remarks Deferred entry, the patient was seen earlier at 9:55 AM. The patient is still lethargic but arousable. WBC is trending down. Potassium is severely low. Sodium is elevated. Objective Vitals Vital Signs Date Time Temp Pulse Resp B/P (MAP) Pulse Ox O2 Delivery O2 Flow Rate FiO2 05/28/17 14:00 115 05/28/17 12:00 99.8 114 22 150/98 (115) 98 05/28/17 12:00 115 05/28/17 10:00 109 05/28/17 09:30 117 23 97 05/28/17 09:00 114 19 154/83 (106) 95 05/28/17 08:43 97 50 05/28/17 08:30 112 23 97 05/28/17 08:00 111 21 179/85 (116) 97 05/28/17 08:00 99.0 120 20 154/83 (106) 99 05/28/17 08:00 109 05/28/17 06:46 109 150/82 05/28/17 06:00 109 05/28/17 04:00 116 05/28/17 04:00 99.2 116 20 163/100 (121) 94 05/28/17 02:58 94 50 05/28/17 02:58 93 50 05/28/17 02:00 109 05/28/17 00:00 91 Nasal Cannula 50 Bi-Pap 05/28/17 00:00 99.4 112 18 129/78 (95) 91 05/28/17 00:00 112 05/27/17 23:53 94 50 05/27/17 22:00 112 05/27/17 21:27 96 50 05/27/17 20:00 114 05/27/17 20:00 97.9 114 20 148/73 (98) 91 05/27/17 19:22 96 50 05/27/17 19:00 91 Nasal Cannula 50 Bi-Pap 05/27/17 19:00 116 141/83 05/27/17 17:58 112 156/87 05/27/17 16:00 98.0 94 22 146/84 (104) 94 05/27/17 16:00 113 I/O 05/27/17 05/27/17 05/27/17 05/28/17 05/28/17 05/28/17 07:00 15:00 23:00 07:00 15:00 23:00 Intake Total 690 ml 350 ml 589 ml 705 ml Output Total 1000 ml 1250 ml Balance 690 ml 350 ml -411 ml -545 ml Intake Oral 240 ml IV Total 450 ml 350 ml 589 ml 705 ml Output Urine Total 1000 ml 1250 ml # Voids 4 # Bowel Movements 2 Result Diagram: 05/28/17 1316 05/28/17 1316 Imaging Last Impressions Chest X-Ray 05/28/17 0000 Signed Impressions: Service Date/Time: Sunday, May 28, 2017 09:04 - CONCLUSION: The improvement with less interstitial edema. Esteban Clarke MD FACR Liver Ultrasound 05/24/17 0000 Signed Impressions: Service Date/Time: Wednesday, May 24, 2017 13:48 - CONCLUSION: 1. Mild increased echotexture of the liver may indicate steatosis. 2. Cholelithiasis. Dre Goodman MD Chest CT 05/24/17 0000 Signed Impressions: Service Date/Time: Wednesday, May 24, 2017 13:27 - CONCLUSION: Patchy airspace disease scattered consolidation both lungs. No pleural effusion. Esteban Clarke MD FACR Objective Remarks Patient mild to moderate resp distress on ventimask Cyanotic. There is bilateral rales in both lungs, diminished overall. S1-S2 present, tachycardic, no murmurs rubs or gallops appreciated. Trace edema in lower extremities. Medications and IVs Current Medications Medications (Trade) Dose Ordered Sig/Ana Cristina Route Start Time Stop Time Status Last Admin (NS Flush) 2 ml UNSCH PRN IV FLUSH 05/24/17 13:15 (NS Flush) 2 ml BID IV FLUSH 05/24/17 13:15 05/28/17 09:00 (Duoneb Neb) 1 ampule Q4HR NEB PRN INH 05/24/17 13:15 (Peridex 0.12% Liq) 15 ml BID@08,20 MT 05/24/17 20:00 05/28/17 08:00 Miscellaneous Information 1 Q361D XX 05/24/17 13:15 (Chlorhexidine 2% Cloth) 3 pack Taper DAILY@04 TOP 05/25/17 04:00 05/21/18 03:59 05/28/17 03:51 (Chlorhexidine 2% Cloth) 3 pack UNSCH PRN TOP 05/24/17 13:15 Linezolid 300 ml @ 300 mls/hr Q12H IV 05/24/17 14:00 05/28/17 12:53 (Tamiflu) 75 mg BID PO 05/24/17 21:00 05/28/17 08:58 (Cordarone) 300 mg Q12HR PO 05/24/17 21:00 05/28/17 08:58 (Coreg) 12.5 mg BID PO 05/24/17 21:00 05/28/17 08:58 (Plavix) 75 mg DAILY PO 05/25/17 09:00 05/28/17 08:58 (Singulair) 10 mg HS PO 05/24/17 21:00 05/26/17 20:26 (Ecotrin Ec) 81 mg DAILY PO 05/25/17 09:00 05/28/17 08:58 (Sustiva) 600 mg HS PO 05/24/17 21:00 05/26/17 20:27 (Lipitor) 80 mg HS PO 05/24/17 21:00 05/26/17 20:26 Piperacillin Sod/ Tazobactam Sod 50 ml @ 100 mls/hr Q6H IV 05/24/17 17:00 05/28/17 11:00 Diltiazem HCl 125 mg/Sodium Chloride 125 ml @ 5 mls/hr TITRATE PRN IV 05/24/17 14:15 (Duoneb Neb) 1 ampule Q4HR NEB NEB 05/24/17 16:00 05/28/17 14:02 (NovoLOG SUPPLEMENTAL SCALE) 1 Q4HR SQ 05/24/17 16:00 05/28/17 12:52 (D50w (Vial) Inj) 50 ml UNSCH PRN IV PUSH 05/24/17 14:45 (Glucagon Inj) 1 mg UNSCH PRN OTHER 05/24/17 14:45 (Epivir) 300 mg DAILY PO 05/25/17 09:00 05/28/17 08:58 (Ziagen) 600 mg DAILY PO 05/25/17 09:00 05/28/17 08:59 (Morphine Inj) 2 mg Q3H PRN IV PUSH 05/24/17 15:45 05/27/17 13:20 (Lovenox Inj) 40 mg Q24H SQ 05/26/17 15:00 05/27/17 15:00 (Pepcid Inj) 20 mg Q12H IV PUSH 05/26/17 15:00 05/28/17 01:28 (Apresoline Inj) 20 mg Q4H PRN IV 05/26/17 23:45 05/28/17 04:09 (Lasix Inj) 40 mg BID@,18 IV PUSH 05/27/17 18:00 05/28/17 08:59 Diltiazem HCl 125 mg/Sodium Chloride 125 ml @ 5 mls/hr TITRATE PRN IV 05/27/17 17:45 05/28/17 06:46 (Cardizem Inj) 20 mg UNSCH X1 PRN IV PUSH 05/27/17 18:00 05/30/17 17:59 (SoluMEDROL INJ) 60 mg Q6HR IV PUSH 05/28/17 12:00 05/28/17 12:53 Sodium Phosphate 15 mmol/Sodium Chloride 155 ml @ 38.75 mls/ hr ONCE ONCE IV 05/28/17 15:00 05/28/17 18:59 UNV Potassium Chloride 100 ml @ 50 mls/hr Q2H PRN IV 05/28/17 15:00 UNV Potassium Chloride 100 ml @ 50 mls/hr Q2H PRN IV 05/28/17 15:00 UNV (K-Lyte Cl Eff) 50 meq UNSCH PRN PO 05/28/17 15:00 UNV Potassium Chloride 100 ml @ 25 mls/hr UNSCH PRN IV 05/28/17 15:00 UNV Potassium Chloride 100 ml @ 50 mls/hr Q2H PRN IV 05/28/17 15:00 UNV Magnesium Sulfate 4 gm/Sodium Chloride 100 ml @ 50 mls/hr UNSCH PRN IV 05/28/17 15:00 UNV (Mag-Ox) 800 mg UNSCH PRN PO 05/28/17 15:00 UNV Magnesium Sulfate 2 gm/Sodium Chloride 100 ml @ 50 mls/hr UNSCH PRN IV 05/28/17 15:00 UNV (K-Phos) 2,000 mg Q4H PRN PO 05/28/17 15:00 UNV Sodium Phosphate 30 mmol/Sodium Chloride 250 ml @ 42 mls/hr UNSCH PRN IV 05/28/17 15:00 UNV (K-Phos) 2,000 mg UNSCH PRN PO/TUBE 05/28/17 15:00 UNV Potassium Phosphate 30 mmol/ Sodium Chloride 260 ml @ 42 mls/hr UNSCH PRN IV 05/28/17 15:00 UNV A/P Problem List: (1) Acute hypoxemic respiratory failure ICD Code: J96.01 - Acute respiratory failure with hypoxia Status: Acute (2) Acute exacerbation of chronic obstructive pulmonary disease (COPD) ICD Code: J44.1 - Chronic obstructive pulmonary disease with (acute) exacerbation (3) Severe sepsis ICD Code: A41.9 - Sepsis, unspecified organism; R65.20 - Severe sepsis without septic shock (4) Healthcare-associated pneumonia ICD Code: J18.9 - Pneumonia, unspecified organism (5) Bilateral multilobar pneumonia (6) Influenza ICD Code: J11.1 - Influenza due to unidentified influenza virus with other respiratory manifestations (7) Acute kidney injury ICD Code: N17.9 - Acute kidney failure, unspecified (8) Atrial fibrillation with RVR ICD Code: I48.91 - Unspecified atrial fibrillation Status: Acute (9) Atrial fibrillation ICD Code: I48.91 - Unspecified atrial fibrillation Status: Acute (10) Expressive aphasia ICD Code: R47.01 - Aphasia Status: Acute (11) Depression ICD Code: F32.9 - Major depressive disorder, single episode, unspecified Status: Chronic (12) Hypertension ICD Code: I10 - Essential (primary) hypertension Status: Chronic (13) HLD (hyperlipidemia) ICD Code: E78.5 - Hyperlipidemia, unspecified Status: Chronic (14) Left acute arterial ischemic stroke, MCA (middle cerebral artery) ICD Code: I63.512 - Cerebral infarction due to unspecified occlusion or stenosis of left middle cerebral artery Status: Acute (15) History of diabetes mellitus ICD Code: Z86.39 - Personal history of other endocrine, nutritional and metabolic disease Status: Chronic (16) Left carotid stenosis ICD Code: I65.22 - Occlusion and stenosis of left carotid artery Status: Acute Assessment and Plan Neuro/Psych: History of left MCA stroke with right hemiparesis Depression Peripheral neuropathy Encephalopathy Continue aspirin/Plavix PT/OT once stabilized respiratory prince Hold as needed Xanax, Prozac, Neurontin, Ambien 05/27 suspect encephalopathy secondary to CO2 narcosis since patient is in respiratory distress on BiPAP. I will obtain an ABG. Continue to monitor neurological status. 05/28 encephalopathy likely secondary to metabolic encephalopathy due to hypernatremia. Consult palliative care. CV: Atrial fibrillation with rapid ventricular response CAD with History of non-STEMI Dyslipidemia Left carotid stenosis History of hypertension Chronic A. fib Cardizem infusion for rate control Continue Home medications Coreg and amiodarone, hold p.o. Cardizem, and losartan Continue aspirin Plavix Check 2 D Echo. Echocardiogram in 2014 EF around 50%. 05/27 patient on A. fib with RVR. Currently not on Cardizem infusion. Heart rate in the high 130s. Ordered EKG stat. Will give Cardizem IV bolus and placed on Cardizem drip. Will check cardiac enzymes, TSH free T4. 05/28 patient still with A. fib with RVR however better controlled. Continue Cardizem drip. And consult cardiology. TSH was slightly decreased at 0.119, however free T4 1.20. Will check free T3. Acute hypoxemic respiratory failure Multilobar pneumonia recent influenza Acute COPD exacerbation Off BiPAP DuoNeb every 4 hours scheduled and as needed Broad-spectrum antibiotics with Zosyn, Zyvox, Tamiflu 05/27 x-ray shows deterioration with decreasing interstitial changes in both lungs , reviewed by me and likely consistent with acute pulmonary edema. I will obtain an ABG stat, ordered Lasix 60 mg IV once and 40 mg IV twice daily, 125 mg of IV Solu-Medrol and 60 g IV every 8 hours. Discontinue IV fluids. Order stat labs. Discussed the case with Dr. Martel who states the patient DNR/DNI. Nurse is trying to get in touch with family or contact available. I will change the BiPAP setting to /. 3/ respiratory failure is improving. The patient is off BiPAP. Continue IV Solu-Medrol which I will increase to 60 mg IV every 6 hours. Continue Lasix 40 mg IV twice daily. Continue antibiotics as per ID. Continue IV Zosyn. GI: History of hepatitis C History diverticulosis Elevated liver enzymes Advance PO as tolerated. IV Famotidine Check liver and gallbladder ultrasound : Acute kidney injury Gates will be placed for accurate I's and O's in a critically ill patient IVF as above Endo: Diabetes mellitus Place on sliding scale insulin. Accu-Cheks to maintain euglycemia 3. For blood sugar severely elevated Heme: Monitor CBC daily. ID: Bilateral pneumonia healthcare associated Reason influenza HIV Placed on Zosyn and Zyvox, and continue Tamiflu for influenza with superadded bacterial pneumonia Continue HAART Antibiotics as per ID. ENDO: Hypokalemia Hypophosphatemia. Hyponatremia -encourage oral intake of fluids. Monitor BMP Replace electrolytes as clinically indicated for electrolyte protocol 05/27. Obtain stat labs, CBC with differential, BMP, magnesium and phosphorus. 34 potassium is severely depleted at 2.2, phosphorus is low at 1.7.. Will replace as per the ICU electrolyte protocol. Monitor BMP. Access Utilized peripheral IVs Prophylaxis GI - Protonix DVT - SCD/Lovenox subcutaneous Discharge Planning Patient with poor prognosis and severe respiratory distress. Case discussed with eap counselor Dr. Martel, RN. PAtient is DNR/DNI. 45 minutes of critical care time is spent on patient care. Problem Qualifiers (1) Atrial fibrillation: Qualified Codes: I48.91 - Unspecified atrial fibrillation (2) Depression: Qualified Codes: F32.9 - Major depressive disorder, single episode, unspecified Rai Rosenthal MD May 28, 2017 15:22
[2017-05-28] MEDS: ENOXAPARIN SODIUM 40 MG/0.4 ML SYRINGE SQ SCH (15:43)
[2017-05-28] MEDS: RESP: ALBUTEROL 2.5 MG/IPRATROPIUM 0.5 MG NEB (PRN) INH (19:25)
[2017-05-28] MEDS: MORPHINE SULFATE 4 MG/ML INJ IV PUSH PRN (19:59)
[2017-05-28] MEDS ORDERED: LORazepam 2 MG/ML VIAL IV PUSH ONE (21:00)
[2017-05-28] MEDS: ATORVASTATIN 80 MG TAB PO SCH (21:00)
[2017-05-28] MEDS: MONTELUKAST SODIUM 10 MG TAB PO SCH (21:00)
[2017-05-28] MEDS: POTASSIUM CHLOR 20 MEQ PREMIX 100 ML IV PRN (22:28)
[2017-05-29] VITALS (17 sets, daily range): BP systolic 114–165; BP diastolic 62–97; PULSE 124–135; RESP 19–41; TEMP 98–99.6; O2SAT 96–98
[2017-05-29] MEDS: LINEZOLID 600 MG PREMIX 300 ML IV SCH ×2 (00:37→14:40)
[2017-05-29] MEDS: methylPREDNISolone SOD SUCC 125 MG/2 ML VIAL IV PUSH SCH ×5 (00:37→23:05)
[2017-05-29] MEDS: POTASSIUM CHLOR 20 MEQ PREMIX 100 ML IV PRN (00:37)
[2017-05-29] MEDS: INSULIN ASPART SUPPLEMENTAL SCALE SQ SCH ×7 (04:00→23:05)
[2017-05-29] MEDS: CHLORHEXIDINE GLUCONATE 2 % 1 PACK (2 CLOTHS) TOP SCH (04:00)
[2017-05-29] MEDS: PIPERACIL-TAZO 3.375 GM PREMIX 50 ML IV SCH ×4 (04:13→23:00)
[2017-05-29] MEDS: FAMOTIDINE 20 MG/2 ML VIAL IV PUSH SCH ×2 (04:14→14:40)
[2017-05-29 05:37] LABS: AUTOMATED NEUTROPHIL # 18.7 TH/MM3 (1.8-7.7); BASOPHIL % 0.2 % (0.0-2.0); HEMATOCRIT 43.5 % (35.0-46.0); HEMOGLOBIN 15.1 GM/DL (11.6-15.3); LYMPH % 3.7 % (9.0-44.0); LYMPHOCYTE # 0.8 TH/MM3 (1.0-4.8); MEAN CELL VOLUME 91.3 FL (80.0-100.0); MEAN CORPUSCULAR HEMOGLOBIN 31.6 PG (27.0-34.0); MEAN CORPUSCULAR HGB CONC 34.6 % (32.0-36.0); MEAN PLATELET VOLUME 9.8 FL (7.0-11.0); MONO % 5.3 % (0.0-8.0); MONOCYTE # 1.1 TH/MM3 (0-0.9); NEUT % 90.8 % (16.0-70.0); PLATELET COUNT 241 TH/MM3 (150-450); RED BLOOD COUNT 4.77 MIL/MM3 (4.00-5.30); RED CELL DISTRIBUTION WIDTH 17.5 % (11.6-17.2); WHITE BLOOD COUNT 20.6 TH/MM3 (4.0-11.0)
[2017-05-29 06:10] LABS: ALBUMIN 2.6 GM/DL (3.4-5.0); ALKALINE PHOSPHATASE 107 U/L (45-117); ALT (GPT) 61 U/L (10-53); AST (GOT) 40 U/L (15-37); BICARBONATE 19.7 MEQ/L (21.0-32.0); BLOOD UREA NITROGEN 44 MG/DL (7-18); CALCIUM 8.7 MG/DL (8.5-10.1); CHLORIDE 120 MEQ/L (98-107); GLOMERULAR FILTRATION RATE 56 ML/MIN (>89); GLUCOSE,RANDOM 184 MG/DL (74-106); MAGNESIUM 1.9 MG/DL (1.5-2.5); PHOSPHORUS 1.7 MG/DL (2.5-4.9); SODIUM (NA) 153 MEQ/L (136-145); TOTAL BILIRUBIN ADULT 0.6 MG/DL (0.2-1.0); TOTAL PROTEIN 7.1 GM/DL (6.4-8.2)
[2017-05-29] MEDS: CHLORHEXIDINE 0.12% (ORAL KIT) 15 ML CUP MT SCH ×2 (08:00→19:50)
[2017-05-29 08:22] LABS: CORRECTED NUCLEATED RBC 1 /100 WBC (0-0); LYMPHOCYTES 6 % (9-44); MONOCYTES 6 % (0-8); MYELOCYTES 2 % (0-0); NEUTROPHIL # MANUAL DIFF 18.1 TH/MM3 (1.8-7.7); NUCLEATED RED BLOOD CELL 1 (0-0); POLYS (SEG NEUTROPHILS) 86 % (16-70)
[2017-05-29 08:23] LABS: TOXIC GRANULATION 1+ (NORMAL)
[2017-05-29] MEDS: OSELTAMIVIR PHOSPHATE 75 MG CAP PO SCH ×2 (09:00→19:50)
[2017-05-29] MEDS: CARVEDILOL 12.5 MG TAB PO SCH ×2 (09:00→19:49)
[2017-05-29] MEDS: ABACAVIR SULFATE 300 MG TAB PO SCH (09:00)
[2017-05-29] MEDS: ASPIRIN EC 81 MG TABEC PO SCH (09:00)
[2017-05-29] MEDS: AMIODARONE 200 MG TAB PO SCH ×2 (09:00→19:49)
[2017-05-29] MEDS: CLOPIDOGREL 75 MG TAB PO SCH (09:00)
[2017-05-29] MEDS: hydrALAZINE HCL 20 MG/ML VIAL IV PRN ×2 (09:06→22:36)
[2017-05-29] MEDS: FUROSEMIDE 40 MG/4 ML VIAL IV PUSH SCH ×2 (09:06→17:20)
[2017-05-29] MEDS: SODIUM CHLORIDE 0.9% FLUSH 10 ML FLUSH IV FLUSH SCH ×2 (09:08→19:49)
[2017-05-29] MEDS: DILTIAZEM INJ 125 MG in SODIUM CHLORIDE 0.9% INJ 100 ML IV PRN ×2 (09:17→17:49)
[2017-05-29] MEDS: MORPHINE SULFATE 4 MG/ML INJ IV PUSH PRN ×2 (09:36→20:20)
--- NOTE | 2017-05-29 10:44 | PD.CONS ---
Consult Service Palliative Care Consult Requested By Dr. Guy Primary Care Physician Enio Sanchez MD Reason for Consultation a. To assist with evaluation and management of symptoms including: shortness of breath, debility b. To assist medical decision maker(s) with: better understanding of current medical conditions; weighing benefits/burdens of medical treatment options; making medical treatment decisions. 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 Patient was brought to the ER on 05/24/17 from a custodial after she was noted to be in worsening respiratory distress and low grade fever. Patient was being treated with Tamiflu for influenza and was on day 5 when she came to the ER. ER Course: * Vital signs: Temperature 100.7, pulse 130, respirations 27, BP 113/58, * Laboratory workup revealed WBC 12.2, hemoglobin 15.3, hematocrit 44.3, platelet count 170, BUN/creatinine 46/1.48, lactic acid 1.6, AST 129, ALT 177, BNP 10 * Chest x-ray revealed mild to moderate congestive failure * Chest CT revealed patchy airspace disease scattered consolidation in both lungs, no pleural effusion. * Patient is a DNR she was placed on BiPAP with saturation of 95% on 70% FiO2 * Blood cultures obtained * IV Solu-Medrol and IV Zosyn administered * Liver ultrasound revealed mild increased echotexture of the liver which may indicate steatosis. * EKG revealed atrial fibrillation with rapid ventricular response * Patient is a DNR * Patient admitted for further evaluation Critical care Dr. Erickson consulted. Infectious disease Dr. Judge consulted for evaluation and management of HIV and pneumonia. Blood cultures growing coag negative Staphylococcus and bacillus species not anthracis in different sets. Clinical course complicated with respiratory failure, leucocytosis, atrial fibrillation with RVR and diarrhea. Palliative care consulted to assist with establishing goals of care. Patient seen and examined in ICU. Patient is lethargic, no eye opening, withdraws to noxious stimulation, right side weaker than left. No verbal response. Per bedside RN, patient has expressive aphasia. Low-grade temperature 99.1 F, heart rate 130s on Cardizem infusion 15 mg/hr, respirations 22, O2 saturation mid 90s on BiPAP5/15/50% .Laboratory workup today revealing WBC 20.6 , sodium 153, potassium 3.2, AST 40, ALT 61. Telephone conversation with patient's son Christina Calderon. Obtained psychosocial and past medical history. According to patient`s son, patient does not have advanced directives. Patient`s son is already aware of patient`s past medical history and has kept in touch with his mother even while she was in the custodial. Per patients` son, patient was planning on moving back to [place] to be closer to family approximately 2 years ago when she had a stroke. Prior to having a stroke, patient had started talking to her son regarding her wishes to be cremated and unfortunately he never had a chance to discuss what her wishes were regarding end of life care due to expressive aphasia. Notified patient`s son that patient made herself a DNR. Patient`s son stated that if his mother made herself a DNR, she would not want anything done to her to prolong her suffering. Patient`s son also understands that with his mothers` compromised immune system her recovery if any would take a long time and leave her in a debilitated state. Notified patient`s son that patient is very lethargic today and if she continues to decline family have to decide whether or not a nasogastric or PEG tube be inserted for nutrition and medicine administration. Broached hospice option and patient`s son would like to further discuss this with his brother and Ever Vasquez and his aunt (patient` sister ) Estela Antoine. Telephone conversation with other patient`s son Chrisitna Curtis. Updated him on patient`s medical status. Informed him that [place] he can serve as his mothers health care proxy and he opted out of medical decision making. . Function/Cognitive Trajectory Patient is a resident at the [facility]. Per son, patient was able to ambulate with no assistive device and performed most of her ADLS with minimal assistance. He main problem was expressive aphasia. . Review of Systems ROS Limitations: Clinical Condition Constitutional: COMPLAINS OF: Fever Ears, nose, mouth, throat: DENIES: Nasal discharge Respiratory: COMPLAINS OF: Cough, Shortness of breath Cardiovascular: COMPLAINS OF: Dyspnea on Exertion, DENIES: Lower Extremity Edema Gastrointestinal: COMPLAINS OF: Diarrhea, DENIES: Vomiting Hematologic/Lymphatics: COMPLAINS OF: Bruising Neurologic: COMPLAINS OF: Speech Problems Other ROS: ROS obtained from EMR and clinical observation. . Past Family Social History Coded Allergies: acetaminophen (Unverified Allergy, Severe, GI UPSET, 11/08/16) hydrocodone (Unverified Allergy, Severe, GI UPSET, 11/08/16) Past Medical History History HIV COPD Atrial fibrillation Hyperlipidemia Mild aortic stenosis Multiple falls Left MCA distribution stroke with residual right hemiparesis and expressive aphasia Hypertension Asthma GERD Left breast cancer . Past Surgical History Left mastectomy Bilateral cataract surgery ORIF to bilateral lower extremities . Reported Medications Xanax 0.25 Mg (Alprazolam) 0.25 Mg Tab 0.25 Mg PO Q8H PRN Prozac (Fluoxetine HCl) 20 Mg Cap 40 Mg PO DAILY Sustiva (Efavirenz) 600 Mg Tab 600 Mg PO HS Ecotrin Low Strength (Aspirin) 81 Mg Tabec 81 Mg PO DAILY Epzicom 600/300 (Abacavir/Lamivudine) 600 Mg-300 Mg Tab 1 Tab PO DAILY Cardizem 60 mg tab (Diltiazem HCl) 60 Mg Tab 1 Tab PO QID Mag-Ox 400 Mg Tab (Magnesium Oxide) 400 Mg Tab 800 Mg PO TID Kcl 20 Meq Tab (Potassium Chloride) 20 Meq Tabcr 20 Meq PO DAILY Ultram (Tramadol HCl) 50 Mg Tab 50 Mg PO Q8H PRN Nexium 24Hr (Esomeprazole Magnesium) 20 Mg Cap 20 Mg PO DAILY Crestor (Rosuvastatin Calcium) 40 Mg Tab 40 Mg PO HS Cordarone 200 Mg Tab (Amiodarone HCl) 200 Mg Tab 300 Mg PO Q12HR Coreg 12.5 mg (Carvedilol) 12.5 Mg Tab 1 Tab PO BID Losartan Potassium 50 Mg Tab 50 Mg PO BID Hydrodiuril (Hydrochlorothiazide) 25 Mg Tab 25 Mg PO DAILY Plavix (Clopidogrel Bisulfate) 75 Mg Tab 75 Mg PO DAILY Neurontin (Gabapentin) 800 Mg Tab 800 Mg PO BID Singulair (Montelukast Sodium) 10 Mg Tab 10 Mg PO HS Ambien 10 Mg Tab (Zolpidem Tartrate) 10 Mg Tab 10 Mg PO HS . Current Medications Medications (Trade) Dose Ordered Sig/Ana Cristina Route Start Time Stop Time Status Last Admin (NS Flush) 2 ml UNSCH PRN IV FLUSH 05/24/17 13:15 (NS Flush) 2 ml BID IV FLUSH 05/24/17 13:15 05/29/17 09:08 (Duoneb Neb) 1 ampule Q4HR NEB PRN INH 05/24/17 13:15 05/28/17 19:25 (Peridex 0.12% Liq) 15 ml BID@08,20 MT 05/24/17 20:00 05/28/17 08:00 Miscellaneous Information 1 Q361D XX 05/24/17 13:15 (Chlorhexidine 2% Cloth) 3 pack Taper DAILY@04 TOP 05/25/17 04:00 05/21/18 03:59 05/29/17 04:00 (Chlorhexidine 2% Cloth) 3 pack UNSCH PRN TOP 05/24/17 13:15 Linezolid 300 ml @ 300 mls/hr Q12H IV 05/24/17 14:00 05/29/17 00:37 (Tamiflu) 75 mg BID PO 05/24/17 21:00 05/28/17 08:58 (Cordarone) 300 mg Q12HR PO 05/24/17 21:00 05/28/17 08:58 (Coreg) 12.5 mg BID PO 05/24/17 21:00 05/28/17 08:58 (Plavix) 75 mg DAILY PO 05/25/17 09:00 05/28/17 08:58 (Singulair) 10 mg HS PO 05/24/17 21:00 05/26/17 20:26 (Ecotrin Ec) 81 mg DAILY PO 05/25/17 09:00 05/28/17 08:58 (Sustiva) 600 mg HS PO 05/24/17 21:00 05/26/17 20:27 (Lipitor) 80 mg HS PO 05/24/17 21:00 05/26/17 20:26 Piperacillin Sod/ Tazobactam Sod 50 ml @ 100 mls/hr Q6H IV 05/24/17 17:00 05/29/17 04:13 (NovoLOG SUPPLEMENTAL SCALE) 1 Q4HR SQ 05/24/17 16:00 05/29/17 09:09 (D50w (Vial) Inj) 50 ml UNSCH PRN IV PUSH 05/24/17 14:45 (Glucagon Inj) 1 mg UNSCH PRN OTHER 05/24/17 14:45 (Epivir) 300 mg DAILY PO 05/25/17 09:00 05/28/17 08:58 (Ziagen) 600 mg DAILY PO 05/25/17 09:00 05/28/17 08:59 (Morphine Inj) 2 mg Q3H PRN IV PUSH 05/24/17 15:45 05/28/17 19:59 (Lovenox Inj) 40 mg Q24H SQ 05/26/17 15:00 05/28/17 15:43 (Pepcid Inj) 20 mg Q12H IV PUSH 05/26/17 15:00 05/29/17 04:14 (Apresoline Inj) 20 mg Q4H PRN IV 05/26/17 23:45 05/29/17 09:06 (Lasix Inj) 40 mg BID@18 IV PUSH 05/27/17 18:00 05/29/17 09:06 Diltiazem HCl 125 mg/Sodium Chloride 125 ml @ 5 mls/hr TITRATE PRN IV 05/27/17 17:45 05/29/17 09:17 (Cardizem Inj) 20 mg UNSCH X1 PRN IV PUSH 05/27/17 18:00 05/30/17 17:59 (SoluMEDROL INJ) 60 mg Q6HR IV PUSH 05/28/17 12:00 05/29/17 04:14 Potassium Chloride 100 ml @ 50 mls/hr Q2H PRN IV 05/28/17 15:00 05/28/17 15:42 Potassium Chloride 100 ml @ 50 mls/hr Q2H PRN IV 05/28/17 15:00 05/29/17 00:37 (K-Lyte Cl Eff) 50 meq UNSCH PRN PO 05/28/17 15:00 Potassium Chloride 100 ml @ 25 mls/hr UNSCH PRN IV 05/28/17 15:00 Potassium Chloride 100 ml @ 50 mls/hr Q2H PRN IV 05/28/17 15:00 Magnesium Sulfate 4 gm/Sodium Chloride 100 ml @ 50 mls/hr UNSCH PRN IV 05/28/17 15:00 (Mag-Ox) 800 mg UNSCH PRN PO 05/28/17 15:00 Magnesium Sulfate 2 gm/Sodium Chloride 100 ml @ 50 mls/hr UNSCH PRN IV 05/28/17 15:00 (K-Phos) 2,000 mg Q4H PRN PO 05/28/17 15:00 Sodium Phosphate 30 mmol/Sodium Chloride 250 ml @ 42 mls/hr UNSCH PRN IV 05/28/17 15:00 (K-Phos) 2,000 mg UNSCH PRN PO/TUBE 05/28/17 15:00 Potassium Phosphate 30 mmol/ Sodium Chloride 260 ml @ 42 mls/hr UNSCH PRN IV 05/28/17 15:00 05/29/17 06:31 . Family History Mother -had colon cancer Father -had lung cancer . Substance Use Tobacco: Current smoker -1 PPD for 30 years Alcohol: None reported Prescription med abuse: None reported Illicits: None reported . Psychosocial History Patient was born in [place] and was raised in [place]. Patient was and twice. Patient his 2 adult sons. 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 . Spiritual/Cultural Factors Patient is a Rastafarian and per son he would like a Cash Management Clerk to visit with her. . Living Will: Never completed Health Care Surrogate: Never completed Durable Power of Poultry Processing Supervisor: Never completed Health Care Surrogate(s): Health Care Proxy -Son-Kvng VasquezJnbyehcdc-[phone] Son-Christina Curtis [phone] [place], her 2 adult sons, Kvng Vasquez and Ever Vasquez would serve as her health care proxys. Patient`s son Christina Curtis opted out of medical decision making for his mother. . Ethical and Legal Issues None identified at this time . Physical Exam Vital Signs Date Time Temp Pulse Resp B/P (MAP) Pulse Ox O2 Delivery O2 Flow Rate FiO2 05/29/17 09:17 139 176/99 05/29/17 08:00 99.1 130 41 156/94 (114) 97 05/29/17 07:36 98 50 05/29/17 07:36 98 BiPAP 50 05/29/17 07:00 98 Bi-Pap 50 05/29/17 06:00 126 05/29/17 04:15 96 50 05/29/17 04:00 98.3 127 30 150/97 (114) 96 05/29/17 04:00 127 05/29/17 02:00 128 05/29/17 02:00 128 05/29/17 00:50 97 50 05/29/17 00:00 98.0 124 24 114/70 (85) 96 05/28/17 23:13 130 105/74 05/28/17 22:06 94 Bi-Pap 50 05/28/17 22:00 140 05/28/17 21:54 95 50 05/28/17 20:08 96 Non-Rebreather 15.00 05/28/17 20:00 144 05/28/17 20:00 100.3 144 30 136/76 (96) 96 05/28/17 19:23 96 50 05/28/17 19:00 93 Non-Rebreather 15.00 05/28/17 19:00 136 171/102 05/28/17 18:00 115 05/28/17 16:00 100.0 119 20 159/92 (114) 100 05/28/17 16:00 115 05/28/17 15:58 117 159/82 05/28/17 14:00 115 05/28/17 12:00 99.8 114 22 150/98 (115) 98 05/28/17 12:00 115 05/28/17 10:00 109 Exam CONSTITUTIONAL/GENERAL: This is an adequately nourished patient, in mild respiratory distress. TUBES/LINES/DRAINS: PIV, Gates catheter SKIN: No jaundice, rashes, or lesions. Healed mastectomy scar to the left breast. ecchymoses on upper and lower extremities. No wounds seen anteriorly. Skin temperature appropriate. Not diaphoretic. HEAD: Atraumatic. Normocephalic. EYES: Pupils equal and round and reactive. Extraocular motions intact. No scleral icterus. No injection or drainage. Fundi not examined. ENT: Unable to assess. Nose without bleeding or purulent drainage. NECK: Trachea midline. Supple, nontender. CARDIOVASCULAR: Irregular rhythm without murmurs, gallops, or rubs. HR 130S. No JVD. Peripheral pulses symmetric. RESPIRATORY/CHEST: Symmetric,labored respirations. Rhonchi to auscultation. Diminished breath sounds in the lower lobes. No wheezes GASTROINTESTINAL: Abdomen soft, non-tender, nondistended. No hepato-splenomegaly , or palpable masses. No guarding. Bowel sounds present. GENITOURINARY: Without palpable bladder distension. Gates catheter in place. MUSCULOSKELETAL: Extremities without clubbing or edema. No joint tenderness or effusion noted. No calf tenderness. NEUROLOGICAL: Lethargic, minimally responsive to noxious stimulation. Withdraws with all extremities. PSYCHIATRIC: Unable to assess due to clinical condition . Diagnostic Tests Laboratory Laboratory Tests Test 05/27/17 17:33 05/27/17 17:40 05/27/17 19:19 05/27/17 19:30 White Blood Count 19.4 TH/MM3 (4.0-11.0) Red Blood Count 4.71 MIL/MM3 (4.00-5.30) Hemoglobin 14.9 GM/DL (11.6-15.3) Hematocrit 43.2 % (35.0-46.0) Mean Corpuscular Volume 91.7 FL (80.0-100.0) Mean Corpuscular Hemoglobin 31.7 PG (27.0-34.0) Mean Corpuscular Hemoglobin Concent 34.5 % (32.0-36.0) Red Cell Distribution Width 17.5 % (11.6-17.2) Platelet Count 250 TH/MM3 (150-450) Mean Platelet Volume 9.9 FL (7.0-11.0) Neutrophils (%) (Auto) 90.1 % (16.0-70.0) Lymphocytes (%) (Auto) 5.3 % (9.0-44.0) Monocytes (%) (Auto) 4.5 % (0.0-8.0) Eosinophils (%) (Auto) 0.0 % (0.0-4.0) Basophils (%) (Auto) 0.1 % (0.0-2.0) Neutrophils # (Auto) 17.5 TH/MM3 (1.8-7.7) Lymphocytes # (Auto) 1.0 TH/MM3 (1.0-4.8) Monocytes # (Auto) 0.9 TH/MM3 (0-0.9) Eosinophils # (Auto) 0.0 TH/MM3 (0-0.4) Basophils # (Auto) 0.0 TH/MM3 (0-0.2) CBC Comment AUTO DIFF Differential Total Cells Counted 100 Neutrophils % (Manual) 86 % (16-70) Band Neutrophils % 3 % (0-6) Lymphocytes % 2 % (9-44) Monocytes % 4 % (0-8) Neutrophils # (Manual) 18.2 TH/MM3 (1.8-7.7) Myelocytes 5 % (0-0) Differential Comment FINAL DIFF MANUAL Platelet Estimate NORMAL (NORMAL) Platelet Morphology Comment NORMAL (NORMAL) Red Cell Morphology Comment NORMAL (NORMAL) Blood Urea Nitrogen 34 MG/DL (7-18) Creatinine 0.89 MG/DL (0.50-1.00) Random Glucose 229 MG/DL (74-106) Calcium Level 8.3 MG/DL (8.5-10.1) Phosphorus Level 2.1 MG/DL (2.5-4.9) Magnesium Level 2.0 MG/DL (1.5-2.5) Sodium Level 145 MEQ/L (136-145) Potassium Level 3.5 MEQ/L (3.5-5.1) Chloride Level 117 MEQ/L (98-107) Carbon Dioxide Level 21.0 MEQ/L (21.0-32.0) Anion Gap 7 MEQ/L (5-15) Estimat Glomerular Filtration Rate 64 ML/MIN (>89) B-Type Natriuretic Peptide 486 PG/ML (0-100) Blood Gas Puncture Site RT BRACHIAL Blood Gas Patient Temperature 98.6 Blood Gas HCO3 18 mmol/L (22-26) Blood Gas Base Excess -7.9 mmol/L (-2-2) Blood Gas Oxygen Saturation 95 % (90-100) Arterial Blood pH 7.28 (7.380-7.420) Arterial Blood Partial Pressure CO2 38 mmHg (38-42) Arterial Blood Partial Pressure O2 89 mmHG (61-120) Arterial Blood Oxygen Content 20.5 Vol % (12.0-20.0) Arterial Blood Carboxyhemoglobin 0.8 % (0-4) Arterial Blood Methemoglobin 0.7 % (0-2) Blood Gas Hemoglobin 15.2 G/DL (12.0-16.0) Oxygen Delivery Device BIPAP 12IPAP/5EPAP Blood Gas Inspired Oxygen 50 % Total Creatine Kinase 87 U/L (26-192) Troponin I 0.02 NG/ML (0.02-0.05) Free Thyroxine 1.20 NG/DL (0.76-1.46) Thyroid Stimulating Hormone 3rd Gen 0.119 uIU/ML (0.358-3.740) Urine Color YELLOW (YELLW/STRAW) Urine Turbidity CLEAR (CLEAR) Urine pH 6.0 (5.0-8.5) Urine Specific [place] 1.010 (1.002-1.035) Urine Protein NEG mg/dL (NEG-TRACE) Urine Glucose (UA) NEG mg/dL (NEG) Urine Ketones NEG mg/dL (NEG) Urine Occult Blood NEG (NEG) Urine Nitrite NEG (NEG) Urine Bilirubin NEG (NEG) Urine Urobilinogen LESS THAN 2.0 MG/DL (LESS Urine Leukocyte Esterase NEG (NEG) Urine RBC 2 /hpf (0-3) Urine WBC 3 /hpf (0-5) Urine Squamous Epithelial Cells 2 /hpf (0-5) Urine Hyaline Casts 3 /lpf (RARE) Urine Yeast (Budding) MOD (NONE) Microscopic Urinalysis Comment CATH-CULT NOT IND Test 05/27/17 20:03 05/28/17 01:12 05/28/17 05:29 05/28/17 10:10 Blood Gas Puncture Site RT RADIAL RT RADIAL Blood Gas Patient Temperature 98.6 98.6 Blood Gas HCO3 20 mmol/L (22-26) 19 mmol/L (22-26) Blood Gas Base Excess -6.4 mmol/L (-2-2) -5.4 mmol/L (-2-2) Blood Gas Oxygen Saturation 92 % (90-100) 95 % (90-100) Arterial Blood pH 7.26 (7.380-7.420) 7.40 (7.380-7.420) Arterial Blood Partial Pressure CO2 46 mmHg (38-42) 30 mmHg (38-42) Arterial Blood Partial Pressure O2 75 mmHg (61-120) 93 mmHg (61-120) Arterial Blood Oxygen Content 20.0 Vol % (12.0-20.0) 19.8 Vol % (12.0-20.0) Arterial Blood Carboxyhemoglobin 0.7 % (0-4) 0.9 % (0-4) Arterial Blood Methemoglobin 1.2 % (0-2) 1.2 % (0-2) Blood Gas Hemoglobin 15.5 G/DL (12.0-16.0) 14.8 G/DL (12.0-16.0) Oxygen Delivery Device BIPAP BIPAP Blood Gas Ventilator Setting 12 IPAP/5 EPAP 15IPAP/5EPAP Blood Gas Inspired Oxygen 50 % 50 % Total Creatine Kinase 50 U/L (26-192) 79 U/L (26-192) Troponin I 0.02 NG/ML (0.02-0.05) 0.02 NG/ML (0.02-0.05) Test 05/28/17 13:16 05/29/17 04:25 White Blood Count 16.5 TH/MM3 (4.0-11.0) 20.6 TH/MM3 (4.0-11.0) Red Blood Count 4.85 MIL/MM3 (4.00-5.30) 4.77 MIL/MM3 (4.00-5.30) Hemoglobin 15.4 GM/DL (11.6-15.3) 15.1 GM/DL (11.6-15.3) Hematocrit 44.6 % (35.0-46.0) 43.5 % (35.0-46.0) Mean Corpuscular Volume 91.8 FL (80.0-100.0) 91.3 FL (80.0-100.0) Mean Corpuscular Hemoglobin 31.8 PG (27.0-34.0) 31.6 PG (27.0-34.0) Mean Corpuscular Hemoglobin Concent 34.7 % (32.0-36.0) 34.6 % (32.0-36.0) Red Cell Distribution Width 17.8 % (11.6-17.2) 17.5 % (11.6-17.2) Platelet Count 246 TH/MM3 (150-450) 241 TH/MM3 (150-450) Mean Platelet Volume 9.7 FL (7.0-11.0) 9.8 FL (7.0-11.0) Neutrophils (%) (Auto) 86.3 % (16.0-70.0) 90.8 % (16.0-70.0) Lymphocytes (%) (Auto) 6.1 % (9.0-44.0) 3.7 % (9.0-44.0) Monocytes (%) (Auto) 7.5 % (0.0-8.0) 5.3 % (0.0-8.0) Eosinophils (%) (Auto) 0.0 % (0.0-4.0) 0.0 % (0.0-4.0) Basophils (%) (Auto) 0.1 % (0.0-2.0) 0.2 % (0.0-2.0) Neutrophils # (Auto) 14.2 TH/MM3 (1.8-7.7) 18.7 TH/MM3 (1.8-7.7) Lymphocytes # (Auto) 1.0 TH/MM3 (1.0-4.8) 0.8 TH/MM3 (1.0-4.8) Monocytes # (Auto) 1.2 TH/MM3 (0-0.9) 1.1 TH/MM3 (0-0.9) Eosinophils # (Auto) 0.0 TH/MM3 (0-0.4) 0.0 TH/MM3 (0-0.4) Basophils # (Auto) 0.0 TH/MM3 (0-0.2) 0.0 TH/MM3 (0-0.2) CBC Comment AUTO DIFF AUTO DIFF Differential Comment AUTO DIFF CONFIRMED FINAL DIFF MANUAL Platelet Estimate NORMAL (NORMAL) NORMAL (NORMAL) Platelet Morphology Comment ENLARGED (NORMAL) NORMAL (NORMAL) Blood Urea Nitrogen 41 MG/DL (7-18) 44 MG/DL (7-18) Creatinine 0.97 MG/DL (0.50-1.00) 1.00 MG/DL (0.50-1.00) Random Glucose 208 MG/DL (74-106) 184 MG/DL (74-106) Total Protein 7.3 GM/DL (6.4-8.2) 7.1 GM/DL (6.4-8.2) Albumin 2.6 GM/DL (3.4-5.0) 2.6 GM/DL (3.4-5.0) Calcium Level 8.8 MG/DL (8.5-10.1) 8.7 MG/DL (8.5-10.1) Phosphorus Level 1.7 MG/DL (2.5-4.9) 1.7 MG/DL (2.5-4.9) Magnesium Level 2.0 MG/DL (1.5-2.5) 1.9 MG/DL (1.5-2.5) Alkaline Phosphatase 108 U/L (45-117) 107 U/L (45-117) Aspartate Amino Transf (AST/SGOT) 30 U/L (15-37) 40 U/L (15-37) Alanine Aminotransferase (ALT/SGPT) 69 U/L (10-53) 61 U/L (10-53) Total Bilirubin 0.4 MG/DL (0.2-1.0) 0.6 MG/DL (0.2-1.0) Sodium Level 149 MEQ/L (136-145) 153 MEQ/L (136-145) Potassium Level 2.2 MEQ/L (3.5-5.1) 3.2 MEQ/L (3.5-5.1) Chloride Level 116 MEQ/L (98-107) 120 MEQ/L (98-107) Carbon Dioxide Level 21.6 MEQ/L (21.0-32.0) 19.7 MEQ/L (21.0-32.0) Anion Gap 11 MEQ/L (5-15) 13 MEQ/L (5-15) Estimat Glomerular Filtration Rate 58 ML/MIN (>89) 56 ML/MIN (>89) Differential Total Cells Counted 100 Neutrophils % (Manual) 86 % (16-70) Lymphocytes % 6 % (9-44) Monocytes % 6 % (0-8) Neutrophils # (Manual) 18.1 TH/MM3 (1.8-7.7) Myelocytes 2 % (0-0) Nucleated Red Blood Cells 1 /100 WBC (0-0) Toxic Granulation 1+ (NORMAL) Result Diagram: 05/29/17 0425 05/29/17 0425 Microbiology Microbiology Date/Time Source Procedure Growth Status 05/27/17 17:08 Urine Random Urine Legionella Antigen - Final PRESUMPTIVE NEGATIVE FOR LEGIONELLA P... Complete 05/27/17 17:08 Urine Random Urine Streptococcus pneumoniae Antigen (M - Final PRESUMPTIVE NEGATIVE FOR STREPTOCOCCU... Complete Imaging Last Impressions Chest X-Ray 05/28/17 0000 Signed Impressions: Service Date/Time: Sunday, May 28, 2017 09:04 - CONCLUSION: The improvement with less interstitial edema. Esteban Clarke MD FACR Liver Ultrasound 05/24/17 0000 Signed Impressions: Service Date/Time: Wednesday, May 24, 2017 13:48 - CONCLUSION: 1. Mild increased echotexture of the liver may indicate steatosis. 2. Cholelithiasis. Dre Goodman MD Chest CT 05/24/17 0000 Signed Impressions: Service Date/Time: Wednesday, May 24, 2017 13:27 - CONCLUSION: Patchy airspace disease scattered consolidation both lungs. No pleural effusion. Esteban Clarke MD FACR Patient/Family Conference Family Conference Location: Telephone Issues Discussed: * Palliative care role, purpose, approach * Additional medical, psychosocial, and spiritual history * Patients general health, functional status, and cognitive changes in the months leading up to the current hospitalization * Patient/family understanding of the current medical problems * Patient/family understanding of prognosis * Patients goals of care as best understood from advance directives and/or conversations and/or values * Current medical treatment options and benefits/burdens of those options * Likely scenarios comparing ongoing aggressive care with a transition to comfort measures only * Questions answered to the best of my ability * Introduced hospice philosophy and benefits * Palliative care contact information provided Assessment and Plan Disease Oriented Problem List: (1) Bilateral multilobar pneumonia (2) Acute kidney injury (3) History of HIV infection (4) Elevated liver enzymes (5) Atrial fibrillation with RVR (6) History of diabetes mellitus (7) History of ischemic left MCA stroke Symptom Scale: (1) Shortness of breath 0-10 Scale: Unable to quantify Comment: Multifactorial. Patient has cardiac history and COPD. Patient also had influenza. Came in with in respiratory distress chest x-ray revealed bilateral pneumonia. . (2) Debility 0-10 Scale: Unable to quantify Comment: Progressive. . Pertinent Non-Medical Issues Psychosocial:Patient was born in [place] and was raised in [place]. Patient was and twice. Patient his 2 adult sons. 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 Spiritual: Patient is Rastafarian-Open to scraper hand visits per son Kvng Legal:Patient has a signed Community DNR Ethical issues impacting care:None identified at this time . Important Contacts Son- Kvng Vasquez [phone] Son- Ever Vasquez [phone] Sister- Giuseppe PalmerVatk-[phone] Granddaughter-Charissa [phone] Friend-Raheelalejandro Bustillo- [phone] . Prognosis Mrs Easley is a 67 years old female with a past medical history of asthma, tobacco use, CVA with residual right hemiparesis and expressive aphasia, CAD, chronic atrial fibrillation, carotid stenosis, hypertension, hepatitis C, HIV on HAART and GERD. Patient was brought to the ER on 05/24/17 from a custodial after she was noted to be in worsening respiratory distress and low grade fever. Patient was being treated with Tamiflu for influenza and was on day 5 when she came to the ER. Clinical course complicated with respiratory failure, leucocytosis, atrial fibrillation with RVR and diarrhea. Given ongoing comorbidities, patient remains at high risk for further complications, deterioration and decline. . Code Status: No Code Plan PLAN: Legal decision maker: Patient is currently lethargic, no verbalizing and is not able to participate in medical decision making. According to the [place] Statute , patient`s son, Kvng Vasquez will serve as her health care proxy. Goals: Aggressive short of no code CODE STATUS: No Code DNR SYMPTOMS: * Shortness of breath: Multifactorial. Patient has cardiac history and COPD. Patient also had influenza. Came in with in respiratory distress. Chest x-ray revealed bilateral pneumonia. Patient is on Tamiflu and antibiotics. She is currently on BiPAP5/15/50% saturating in the low to mid 90s. Patient is also on Solu-Medrol Q 6HRS, morphine sulfate 2 mg Q 3HRS, duo nebsQ 4 HRS PRN. No recommendations at this time. * Debility: Progressive. Patient has a history of CVA with residual right- sided hemiparesis and expressive aphasia. Per son, patient was ambulating with no assistive device at the custodial. Patient may benefit from Physical therapy, speech and occupational therapy if goals remain aggressive though at this time patient will most likely be unable to effectively participate due to her respiratory and cardiac status. . Palliative care will continue to follow the patient during hospital course as condition evolves, to assist patient/decision-maker with understanding of their medical conditions, weighing benefits/burdens of treatment options, for clarification of goals of treatment. Additionally will assist with any symptoms of palliative concern Thank you for the opportunity to participate in the care of Ms. Easley. Attestation To help prompt me to consider important information that might be impacting today's encounter and assessment, information from prior notes written by myself or my colleagues may have been "brought forward" into today's note. My signature on this note, however, is an attestation that I personally performed the exam, history, and/or decision-making noted today, and, unless otherwise indicated, the interactions with patient, family, and staff as well as the review of records all occurred today. I also attest that the listed assessment and stated plan reflect my best clinical judgment today based on the combination of historical information, prior notes, and today's exam/ interactions. When time spent is documented, it refers only to time spent today by the signer, or if indicated, combined time spent today by collaborating physician/nurse practitioner. Natacha Nair May 29, 2017 10:39
[2017-05-29] MEDS: ENOXAPARIN SODIUM 40 MG/0.4 ML SYRINGE SQ SCH (14:40)
--- NOTE | 2017-05-29 17:11 | HHI.PR ---
Subjective Remarks on Bi Pap tachycardic lethargic- Objective Vitals Vital Signs Date Time Temp Pulse Resp B/P (MAP) Pulse Ox O2 Delivery O2 Flow Rate FiO2 05/29/17 16:00 98.8 130 20 152/85 (107) 98 05/29/17 16:00 98 50 05/29/17 14:00 129 05/29/17 12:00 99.3 130 23 133/62 (85) 97 05/29/17 12:00 132 05/29/17 11:41 96 50 05/29/17 11:28 22 05/29/17 10:00 135 05/29/17 09:17 139 176/99 05/29/17 08:00 130 05/29/17 08:00 99.1 130 41 156/94 (114) 97 05/29/17 07:36 98 50 05/29/17 07:36 98 BiPAP 50 05/29/17 07:00 98 Bi-Pap 50 05/29/17 06:00 126 05/29/17 04:15 96 50 05/29/17 04:00 98.3 127 30 150/97 (114) 96 05/29/17 04:00 127 05/29/17 02:00 128 05/29/17 02:00 128 05/29/17 00:50 97 50 05/29/17 00:00 98.0 124 24 114/70 (85) 96 05/28/17 23:13 130 105/74 05/28/17 22:06 94 Bi-Pap 50 05/28/17 22:00 140 05/28/17 21:54 95 50 05/28/17 20:08 96 Non-Rebreather 15.00 05/28/17 20:00 144 05/28/17 20:00 100.3 144 30 136/76 (96) 96 05/28/17 19:23 96 50 05/28/17 19:00 93 Non-Rebreather 15.00 05/28/17 19:00 136 171/102 05/28/17 18:00 115 I/O 05/28/17 05/28/17 05/28/17 05/29/17 05/29/17 05/29/17 07:00 15:00 23:00 07:00 15:00 23:00 Intake Total 705 ml 555 ml 650 ml Output Total 1250 ml 1450 ml 1650 ml Balance -545 ml -895 ml -1000 ml Intake Oral 250 ml IV Total 705 ml 305 ml 650 ml Output Urine Total 1250 ml 1450 ml 1650 ml # Bowel Movements 2 Result Diagram: 05/29/17 0425 05/29/17 0425 Imaging Last Impressions Chest X-Ray 05/28/17 0000 Signed Impressions: Service Date/Time: Sunday, May 28, 2017 09:04 - CONCLUSION: The improvement with less interstitial edema. Esteban Clarke MD FACR Liver Ultrasound 05/24/17 0000 Signed Impressions: Service Date/Time: Wednesday, May 24, 2017 13:48 - CONCLUSION: 1. Mild increased echotexture of the liver may indicate steatosis. 2. Cholelithiasis. Dre Goodman MD Chest CT 05/24/17 0000 Signed Impressions: Service Date/Time: Wednesday, May 24, 2017 13:27 - CONCLUSION: Patchy airspace disease scattered consolidation both lungs. No pleural effusion. Esteban Clarke MD FACR Objective Remarks lethargic pupils equal Bi PAP in place lungs- decrease breath sounds tachycardic abdomen= soft extremities no edema L sided extremities- flaccid Urinary Catheter: Yes Assessment to: Continue Gates insert reason: Prolonged Immobilization A/P Problem List: (1) Acute hypoxemic respiratory failure ICD Code: J96.01 - Acute respiratory failure with hypoxia Status: Acute (2) Acute exacerbation of chronic obstructive pulmonary disease (COPD) ICD Code: J44.1 - Chronic obstructive pulmonary disease with (acute) exacerbation (3) Severe sepsis ICD Code: A41.9 - Sepsis, unspecified organism; R65.20 - Severe sepsis without septic shock (4) Healthcare-associated pneumonia ICD Code: J18.9 - Pneumonia, unspecified organism (5) Bilateral multilobar pneumonia (6) Influenza ICD Code: J11.1 - Influenza due to unidentified influenza virus with other respiratory manifestations (7) Acute kidney injury ICD Code: N17.9 - Acute kidney failure, unspecified (8) Atrial fibrillation with RVR ICD Code: I48.91 - Unspecified atrial fibrillation Status: Acute (9) Atrial fibrillation ICD Code: I48.91 - Unspecified atrial fibrillation Status: Acute (10) Expressive aphasia ICD Code: R47.01 - Aphasia Status: Acute (11) Depression ICD Code: F32.9 - Major depressive disorder, single episode, unspecified Status: Chronic (12) Hypertension ICD Code: I10 - Essential (primary) hypertension Status: Chronic (13) HLD (hyperlipidemia) ICD Code: E78.5 - Hyperlipidemia, unspecified Status: Chronic (14) Left acute arterial ischemic stroke, MCA (middle cerebral artery) ICD Code: I63.512 - Cerebral infarction due to unspecified occlusion or stenosis of left middle cerebral artery Status: Acute (15) History of diabetes mellitus ICD Code: Z86.39 - Personal history of other endocrine, nutritional and metabolic disease Status: Chronic (16) Left carotid stenosis ICD Code: I65.22 - Occlusion and stenosis of left carotid artery Status: Acute Assessment and Plan Neuro/Psych: History of left MCA stroke with right hemiparesis Depression Peripheral neuropathy Encephalopathy Continue aspirin/Plavix PT/OT once stabilized respiratory prince Hold as needed Xanax, Prozac, Neurontin, Ambien 05/27 suspect encephalopathy secondary to CO2 narcosis since patient is in respiratory distress on BiPAP. I will obtain an ABG. Continue to monitor neurological status. 3/ encephalopathy likely secondary to metabolic encephalopathy due to hypernatremia. Palliative care on board CV: Atrial fibrillation with rapid ventricular response CAD with History of non-STEMI Dyslipidemia Left carotid stenosis History of hypertension Chronic A. fib Cardizem infusion for rate control- continue . Start IV Lopressor 5 mg q 6 Continue Home medications Coreg and amiodarone, hold p.o. Cardizem, and losartan - po meds not being given- lethargic Continue aspirin Plavix 2 D Echo. Echocardiogram in 2014 EF around 50%. 05/27 patient on A. fib with RVR. Currently not on Cardizem infusion. Heart rate in the high 130s. Ordered EKG stat. Will give Cardizem IV bolus and placed on Cardizem drip. Will check cardiac enzymes, TSH free T4. 3/ patient still with A. fib with RVR however better controlled. Continue Cardizem drip. TSH was slightly decreased at 0.119, however free T4 1.20. Acute hypoxemic respiratory failure Multilobar pneumonia recent influenza Acute COPD exacerbation Off BiPAP DuoNeb every 4 hours scheduled and as needed Broad-spectrum antibiotics with Zosyn, Zyvox, Tamiflu 3/ x-ray shows deterioration with decreasing interstitial changes in both lungs , reviewed by me and likely consistent with acute pulmonary edema. I will obtain an ABG stat, ordered Lasix 60 mg IV once and 40 mg IV twice daily, 125 mg of IV Solu-Medrol and 60 g IV every 8 hours. Discontinue IV fluids. Order stat labs. Discussed the case with Dr. Martel who states the patient DNR/DNI. Nurse is trying to get in touch with family or contact available. I will change the BiPAP setting to /. 3/4 respiratory failure is improving. The patient is off BiPAP. Continue IV Solu-Medrol which I will increase to 60 mg IV every 6 hours. Continue Lasix 40 mg IV twice daily. Continue antibiotics as per ID. Continue IV Zosyn. GI: History of hepatitis C History diverticulosis Elevated liver enzymes Advance PO as tolerated. IV Famotidine Check liver and gallbladder ultrasound : Acute kidney injury Gates will be placed for accurate I's and O's in a critically ill patient IVF as above Endo: Diabetes mellitus Place on sliding scale insulin. Accu-Cheks to maintain euglycemia 3. For blood sugar severely elevated Heme: Monitor CBC daily. ID: Bilateral pneumonia healthcare associated Reason influenza HIV Placed on Zosyn and Zyvox, and continue Tamiflu for influenza with superadded bacterial pneumonia Continue HAART Antibiotics as per ID. ENDO: Hypokalemia Hypophosphatemia. Hyponatremia -encourage oral intake of fluids. Monitor BMP Replace electrolytes as clinically indicated for electrolyte protocol 3/3. Obtain stat labs, CBC with differential, BMP, magnesium and phosphorus. 3/4 potassium is severely depleted at 2.2, phosphorus is low at 1.7.. Will replace as per the ICU electrolyte protocol. Monitor BMP. Access Utilized peripheral IVs Prophylaxis GI - Protonix DVT - SCD/Lovenox subcutaneous Discharge Planning Patient with poor prognosis and severe respiratory distress. Case discussed with Kvng- son and staff nurse PAtient is DNR/DNI. Problem Qualifiers (1) Atrial fibrillation: Qualified Codes: I48.91 - Unspecified atrial fibrillation (2) Depression: Qualified Codes: F32.9 - Major depressive disorder, single episode, unspecified Joann Miranda MD May 29, 2017 17:11
--- NOTE | 2017-05-29 19:14 | HHI.IDPN ---
Subjective Subjective Remarks lethargic On BIPAP resolved fever no diarrhea Antibiotics Abacavir, Epivir, Sustiva, NOrvir zyvox zosyn tamiflu Allergies: Coded Allergies: acetaminophen (Unverified Allergy, Severe, GI UPSET, 11/08/16) hydrocodone (Unverified Allergy, Severe, GI UPSET, 11/08/16) Objective . Vital Signs Date Time Temp Pulse Resp B/P (MAP) Pulse Ox O2 Delivery O2 Flow Rate FiO2 05/29/17 17:49 126 151/82 05/29/17 16:00 98.8 130 20 152/85 (107) 98 05/29/17 16:00 98 50 05/29/17 16:00 130 05/29/17 14:00 129 05/29/17 12:00 99.3 130 23 133/62 (85) 97 05/29/17 12:00 132 05/29/17 11:41 96 50 05/29/17 11:28 22 05/29/17 10:00 135 05/29/17 09:17 139 176/99 05/29/17 08:00 130 05/29/17 08:00 99.1 130 41 156/94 (114) 97 05/29/17 07:36 98 50 05/29/17 07:36 98 BiPAP 50 05/29/17 07:00 98 Bi-Pap 50 05/29/17 06:00 126 05/29/17 04:15 96 50 05/29/17 04:00 98.3 127 30 150/97 (114) 96 05/29/17 04:00 127 05/29/17 02:00 128 05/29/17 02:00 128 05/29/17 00:50 97 50 05/29/17 00:00 98.0 124 24 114/70 (85) 96 05/28/17 23:13 130 105/74 05/28/17 22:06 94 Bi-Pap 50 05/28/17 22:00 140 05/28/17 21:54 95 50 05/28/17 20:08 96 Non-Rebreather 15.00 05/28/17 20:00 144 05/28/17 20:00 100.3 144 30 136/76 (96) 96 05/28/17 19:23 96 50 05/29/17 05/29/17 05/30/17 15:00 23:00 07:00 Intake Total 0 ml Output Total 1300 ml Balance -1300 ml Intake Oral 0 ml Output Urine Total 1300 ml # Bowel Movements 0 . Laboratory Tests Test 05/28/17 13:16 05/29/17 04:25 White Blood Count 16.5 TH/MM3 20.6 TH/MM3 Red Blood Count 4.85 MIL/MM3 4.77 MIL/MM3 Hemoglobin 15.4 GM/DL 15.1 GM/DL Hematocrit 44.6 % 43.5 % Mean Corpuscular Volume 91.8 FL 91.3 FL Mean Corpuscular Hemoglobin 31.8 PG 31.6 PG Mean Corpuscular Hemoglobin Concent 34.7 % 34.6 % Red Cell Distribution Width 17.8 % 17.5 % Platelet Count 246 TH/MM3 241 TH/MM3 Mean Platelet Volume 9.7 FL 9.8 FL Neutrophils (%) (Auto) 86.3 % 90.8 % Lymphocytes (%) (Auto) 6.1 % 3.7 % Monocytes (%) (Auto) 7.5 % 5.3 % Eosinophils (%) (Auto) 0.0 % 0.0 % Basophils (%) (Auto) 0.1 % 0.2 % Neutrophils # (Auto) 14.2 TH/MM3 18.7 TH/MM3 Lymphocytes # (Auto) 1.0 TH/MM3 0.8 TH/MM3 Monocytes # (Auto) 1.2 TH/MM3 1.1 TH/MM3 Eosinophils # (Auto) 0.0 TH/MM3 0.0 TH/MM3 Basophils # (Auto) 0.0 TH/MM3 0.0 TH/MM3 CBC Comment AUTO DIFF AUTO DIFF Differential Comment AUTO DIFF CONFIRMED FINAL DIFF MANUAL Platelet Estimate NORMAL NORMAL Platelet Morphology Comment ENLARGED NORMAL Differential Total Cells Counted 100 Neutrophils % (Manual) 86 % Lymphocytes % 6 % Monocytes % 6 % Neutrophils # (Manual) 18.1 TH/MM3 Myelocytes 2 % Nucleated Red Blood Cells 1 /100 WBC Toxic Granulation 1+ Laboratory Tests Test 05/27/17 19:19 05/28/17 01:12 05/28/17 10:10 05/28/17 13:16 Total Creatine Kinase 87 U/L 50 U/L 79 U/L Troponin I 0.02 NG/ML 0.02 NG/ML 0.02 NG/ML Free Thyroxine 1.20 NG/DL Thyroid Stimulating Hormone 3rd Gen 0.119 uIU/ML Blood Urea Nitrogen 41 MG/DL Creatinine 0.97 MG/DL Random Glucose 208 MG/DL Total Protein 7.3 GM/DL Albumin 2.6 GM/DL Calcium Level 8.8 MG/DL Phosphorus Level 1.7 MG/DL Magnesium Level 2.0 MG/DL Alkaline Phosphatase 108 U/L Aspartate Amino Transf (AST/SGOT) 30 U/L Alanine Aminotransferase (ALT/SGPT) 69 U/L Total Bilirubin 0.4 MG/DL Sodium Level 149 MEQ/L Potassium Level 2.2 MEQ/L Chloride Level 116 MEQ/L Carbon Dioxide Level 21.6 MEQ/L Anion Gap 11 MEQ/L Estimat Glomerular Filtration Rate 58 ML/MIN Test 05/29/17 04:25 Blood Urea Nitrogen 44 MG/DL Creatinine 1.00 MG/DL Random Glucose 184 MG/DL Total Protein 7.1 GM/DL Albumin 2.6 GM/DL Calcium Level 8.7 MG/DL Phosphorus Level 1.7 MG/DL Magnesium Level 1.9 MG/DL Alkaline Phosphatase 107 U/L Aspartate Amino Transf (AST/SGOT) 40 U/L Alanine Aminotransferase (ALT/SGPT) 61 U/L Total Bilirubin 0.6 MG/DL Sodium Level 153 MEQ/L Potassium Level 3.2 MEQ/L Chloride Level 120 MEQ/L Carbon Dioxide Level 19.7 MEQ/L Anion Gap 13 MEQ/L Estimat Glomerular Filtration Rate 56 ML/MIN Microbiology Date/Time Source Procedure Growth Status 05/27/17 17:08 Urine Random Urine Legionella Antigen - Final PRESUMPTIVE NEGATIVE FOR LEGIONELLA P... Complete 05/27/17 17:08 Urine Random Urine Streptococcus pneumoniae Antigen (M - Final PRESUMPTIVE NEGATIVE FOR STREPTOCOCCU... Complete Imaging Last Impressions Chest X-Ray 05/28/17 0000 Signed Impressions: Service Date/Time: Sunday, May 28, 2017 09:04 - CONCLUSION: The improvement with less interstitial edema. Esteban Clarke MD FACR Liver Ultrasound 05/24/17 0000 Signed Impressions: Service Date/Time: Wednesday, May 24, 2017 13:48 - CONCLUSION: 1. Mild increased echotexture of the liver may indicate steatosis. 2. Cholelithiasis. Dre Goodman MD Chest CT 05/24/17 0000 Signed Impressions: Service Date/Time: Wednesday, May 24, 2017 13:27 - CONCLUSION: Patchy airspace disease scattered consolidation both lungs. No pleural effusion. Esteban Clarke MD FACR Physical Exam CONSTITUTIONAL/GENERAL: This is a morbidly obese patient, in mild resp distress. SKIN: No jaundice, rashes, or lesions. Skin temperature appropriate. Not diaphoretic. BREASTS: mastectomy scar L breast - well healed HEAD: Atraumatic. Normocephalic. EYES: Pupils equal and round and reactive. Extraocular motions intact. No scleral icterus. No injection or drainage. Fundi not examined. ENT: Hearing grossly normal. Nose without bleeding or purulent drainage. Limited mucosae exam without visible erythema, or lesions. NECK: Trachea midline. Supple, nontender. CARDIOVASCULAR: Regular rate and rhythm without murmurs, gallops, or rubs. No JVD. Peripheral pulses symmetric. Perifery well perfused RESPIRATORY/CHEST: Symmetric, unlabored respirations. cont to have diffuse b/l rhonchi to auscultation. Breath sounds equal bilaterally. GASTROINTESTINAL: Abdomen soft, non-tender, distended. No hepato-splenomegaly, or palpable masses. No guarding. Bowel sounds present. GENITOURINARY: Without palpable bladder distension. MUSCULOSKELETAL: Extremities without clubbing, cyanosis, or edema. NEUROLOGICAL: Very lethargic; not much interactive Motor and sensory grossly within normal limits. Follows commands. Moves all extremities. Assessment & Plan Remarks Assessment and Plan Influenza PNA Impending resp failure: requires non ivasive vent'n HIV, unknown immunosuppression status Morbid obesety COPD Chronic tobaccoism Abx associated diarrhea - new issue - appears to resolve Gram positive bactremia 2/2 different organisms - cw contamination Worsenig leukocytosis cont current abx cont tamiflu cont HAART fu sputum clx fu blood clx chk stool for C.diff if again diarrhea fu CD4 cytology for PCP Margaret Judge MD May 29, 2017 19:14
[2017-05-29] MEDS: ATORVASTATIN 80 MG TAB PO SCH (19:49)
[2017-05-29] MEDS: MONTELUKAST SODIUM 10 MG TAB PO SCH (19:49)
[2017-05-29] MEDS ORDERED: PIPERACIL-TAZO 3.375 GM PREMIX 50 ML ONE (22:59)
[2017-05-29] MEDS ORDERED: SODIUM CHLORIDE 0.9% INJ 50 ML ONE (22:59)
[2017-05-30] VITALS (18 sets, daily range): BP systolic 142–165; BP diastolic 73–94; PULSE 95–130; RESP 18–40; TEMP 97.3–99; O2SAT 93–99
[2017-05-30] MEDS: FAMOTIDINE 20 MG/2 ML VIAL IV PUSH SCH ×2 (02:22→15:06)
[2017-05-30] MEDS: LINEZOLID 600 MG PREMIX 300 ML IV SCH ×2 (02:22→12:59)
[2017-05-30] MEDS: CHLORHEXIDINE GLUCONATE 2 % 1 PACK (2 CLOTHS) TOP SCH (02:22)
[2017-05-30] MEDS: DILTIAZEM INJ 125 MG in SODIUM CHLORIDE 0.9% INJ 100 ML IV PRN ×3 (02:30→18:31)
[2017-05-30] MEDS: PIPERACIL-TAZO 3.375 GM PREMIX 50 ML IV SCH ×4 (04:09→22:31)
[2017-05-30] MEDS: INSULIN ASPART SUPPLEMENTAL SCALE SQ SCH ×5 (04:09→20:00)
[2017-05-30] MEDS: methylPREDNISolone SOD SUCC 125 MG/2 ML VIAL IV PUSH SCH ×4 (04:10→22:31)
[2017-05-30] MEDS: FUROSEMIDE 40 MG/4 ML VIAL IV PUSH SCH (08:07)
[2017-05-30] MEDS: RESP: ALBUTEROL 2.5 MG/IPRATROPIUM 0.5 MG NEB (PRN) INH (09:56)
[2017-05-30] MEDS: CHLORHEXIDINE 0.12% (ORAL KIT) 15 ML CUP MT SCH ×2 (10:03→20:00)
[2017-05-30] MEDS: SODIUM CHLORIDE 0.9% FLUSH 10 ML FLUSH IV FLUSH SCH ×2 (10:04→22:37)
[2017-05-30] MEDS: CLOPIDOGREL 75 MG TAB PO SCH (10:34)
[2017-05-30] MEDS: AMIODARONE 200 MG TAB PO SCH ×2 (10:34→21:00)
[2017-05-30] MEDS: OSELTAMIVIR PHOSPHATE 75 MG CAP PO SCH ×2 (10:34→21:00)
[2017-05-30] MEDS: CARVEDILOL 12.5 MG TAB PO SCH ×2 (10:34→21:00)
[2017-05-30] MEDS: ABACAVIR SULFATE 300 MG TAB PO SCH (10:34)
[2017-05-30] MEDS: ASPIRIN EC 81 MG TABEC PO SCH (10:34)
[2017-05-30] MEDS: ENOXAPARIN SODIUM 40 MG/0.4 ML SYRINGE SQ SCH (15:06)
[2017-05-30] MEDS: MORPHINE SULFATE 4 MG/ML INJ IV PUSH PRN (15:06)
--- NOTE | 2017-05-30 17:48 | HHI.PR ---
Subjective Remarks drowsy, open to eyes to call of her name non verbal Objective Vitals Vital Signs Date Time Temp Pulse Resp B/P (MAP) Pulse Ox O2 Delivery O2 Flow Rate FiO2 05/30/17 16:00 120 05/30/17 16:00 97.3 120 40 142/94 (110) 93 05/30/17 14:00 130 05/30/17 12:00 128 05/30/17 12:00 97.8 128 32 142/85 (104) 93 05/30/17 10:15 93 Nasal Cannula 4.00 05/30/17 10:05 130 133/81 05/30/17 10:00 129 05/30/17 09:56 96 Nasal Cannula 3.00 05/30/17 08:00 116 05/30/17 08:00 97.9 116 20 147/88 (107) 97 05/30/17 07:07 99 40 05/30/17 07:00 99 Bi-Pap 40 05/30/17 06:00 119 05/30/17 04:00 119 05/30/17 04:00 99.0 119 19 146/73 (97) 98 05/30/17 03:45 97 BiPAP 50 05/30/17 03:45 97 50 05/30/17 02:30 125 135/85 05/30/17 02:00 125 05/30/17 01:08 98 50 05/30/17 00:00 98.8 127 18 165/83 (110) 97 05/30/17 00:00 127 05/29/17 22:00 127 05/29/17 21:24 98 50 05/29/17 20:00 129 05/29/17 20:00 99.6 129 19 165/83 (110) 97 05/29/17 19:00 97 Bi-Pap 50 05/29/17 19:00 126 168/86 05/29/17 18:00 129 05/29/17 17:49 126 151/82 I/O 05/29/17 05/29/17 05/29/17 05/30/17 05/30/17 05/30/17 07:00 15:00 23:00 07:00 15:00 23:00 Intake Total 650 ml 50 ml 350 ml 574 ml Output Total 1650 ml 1300 ml 1200 ml Balance -1000 ml 50 ml -950 ml -626 ml Intake Oral 0 ml IV Total 650 ml 50 ml 350 ml 574 ml Output Urine Total 1650 ml 1300 ml 1200 ml # Bowel Movements 0 0 Result Diagram: 05/29/17 0425 05/29/17 0425 Imaging Last Impressions Chest X-Ray 05/28/17 0000 Signed Impressions: Service Date/Time: Sunday, May 28, 2017 09:04 - CONCLUSION: The improvement with less interstitial edema. Esteban Clarke MD FACR Liver Ultrasound 05/24/17 0000 Signed Impressions: Service Date/Time: Wednesday, May 24, 2017 13:48 - CONCLUSION: 1. Mild increased echotexture of the liver may indicate steatosis. 2. Cholelithiasis. Dre Goodman MD Chest CT 05/24/17 0000 Signed Impressions: Service Date/Time: Wednesday, May 24, 2017 13:27 - CONCLUSION: Patchy airspace disease scattered consolidation both lungs. No pleural effusion. Esteban Clarke MD FACR Objective Remarks drowsy pupils equal lungs- decrease breath sounds tachycardic abdomen= soft extremities no edema L sided extremities- flaccid Urinary Catheter: Yes Assessment to: Continue Gates insert reason: Prolonged Immobilization A/P Problem List: (1) Acute hypoxemic respiratory failure ICD Code: J96.01 - Acute respiratory failure with hypoxia Status: Acute (2) Acute exacerbation of chronic obstructive pulmonary disease (COPD) ICD Code: J44.1 - Chronic obstructive pulmonary disease with (acute) exacerbation (3) Severe sepsis ICD Code: A41.9 - Sepsis, unspecified organism; R65.20 - Severe sepsis without septic shock (4) Healthcare-associated pneumonia ICD Code: J18.9 - Pneumonia, unspecified organism (5) Bilateral multilobar pneumonia (6) Influenza ICD Code: J11.1 - Influenza due to unidentified influenza virus with other respiratory manifestations (7) Acute kidney injury ICD Code: N17.9 - Acute kidney failure, unspecified (8) Atrial fibrillation with RVR ICD Code: I48.91 - Unspecified atrial fibrillation Status: Acute (9) Atrial fibrillation ICD Code: I48.91 - Unspecified atrial fibrillation Status: Acute (10) Expressive aphasia ICD Code: R47.01 - Aphasia Status: Acute (11) Depression ICD Code: F32.9 - Major depressive disorder, single episode, unspecified Status: Chronic (12) Hypertension ICD Code: I10 - Essential (primary) hypertension Status: Chronic (13) HLD (hyperlipidemia) ICD Code: E78.5 - Hyperlipidemia, unspecified Status: Chronic (14) Left acute arterial ischemic stroke, MCA (middle cerebral artery) ICD Code: I63.512 - Cerebral infarction due to unspecified occlusion or stenosis of left middle cerebral artery Status: Acute (15) History of diabetes mellitus ICD Code: Z86.39 - Personal history of other endocrine, nutritional and metabolic disease Status: Chronic (16) Left carotid stenosis ICD Code: I65.22 - Occlusion and stenosis of left carotid artery Status: Acute Assessment and Plan Neuro/Psych: History of left MCA stroke with right hemiparesis Depression Peripheral neuropathy Encephalopathy Continue aspirin/Plavix PT/OT once stabilized respiratory prince Hold as needed Xanax, Prozac, Neurontin, Ambien 05/27 suspect encephalopathy secondary to CO2 narcosis since patient is in respiratory distress on BiPAP. I will obtain an ABG. Continue to monitor neurological status. 05/28 encephalopathy likely secondary to metabolic encephalopathy due to hypernatremia. Palliative care on board 05/30- d/w deana and Kvng- - son- wants to meet with Palliative and discuss possible hospice to determine goals of care also d/w him MS- and need for NGT vs PEG- not decided on that now CV: Atrial fibrillation with rapid ventricular response CAD with History of non-STEMI Dyslipidemia Left carotid stenosis History of hypertension Chronic A. fib Cardizem infusion for rate control- continue . Start IV Lopressor 5 mg q 6 Continue Home medications Coreg and amiodarone, hold p.o. Cardizem, and losartan - po meds not being given- lethargic Continue aspirin Plavix 2 D Echo. Echocardiogram in 2014 EF around 50%. 05/27 patient on A. fib with RVR. Currently not on Cardizem infusion. Heart rate in the high 130s. Ordered EKG stat. Will give Cardizem IV bolus and placed on Cardizem drip. Will check cardiac enzymes, TSH free T4. 05/28 patient still with A. fib with RVR however better controlled. Continue Cardizem drip. TSH was slightly decreased at 0.119, however free T4 1.20. 05/30- still tachycardi- a fib- on cardizme dri[p- not taking po coreg, amiodaron start IV 5 mg Lopressor q 6 Acute hypoxemic respiratory failure Multilobar pneumonia recent influenza Acute COPD exacerbation Off BiPAP DuoNeb every 4 hours scheduled and as needed Broad-spectrum antibiotics with Zosyn, Zyvox, Tamiflu 05/27 x-ray shows deterioration with decreasing interstitial changes in both lungs , reviewed by me and likely consistent with acute pulmonary edema. I will obtain an ABG stat, ordered Lasix 60 mg IV once and 40 mg IV twice daily, 125 mg of IV Solu-Medrol and 60 g IV every 8 hours. Discontinue IV fluids. Order stat labs. Discussed the case with Dr. Martel who states the patient DNR/DNI. Nurse is trying to get in touch with family or contact available. I will change the BiPAP setting to 02/28. 3/ respiratory failure is improving. The patient is off BiPAP. Continue IV Solu-Medrol which I will increase to 60 mg IV every 6 hours. Continue Lasix 40 mg IV twice daily. Continue antibiotics as per ID. Continue IV Zosyn. GI: History of hepatitis C History diverticulosis Elevated liver enzymes Advance PO as tolerated. IV Famotidine Check liver and gallbladder ultrasound : Acute kidney injury Gates will be placed for accurate I's and O's in a critically ill patient IVF as above Endo: Diabetes mellitus Place on sliding scale insulin. Accu-Cheks to maintain euglycemia 3. For blood sugar severely elevated Heme: Monitor CBC daily. ID: Bilateral pneumonia healthcare associated Reason influenza HIV Placed on Zosyn and Zyvox, and continue Tamiflu for influenza with superadded bacterial pneumonia Continue HAART Antibiotics as per ID. ENDO: Hypokalemia Hypophosphatemia. Hyponatremia -encourage oral intake of fluids. Monitor BMP Replace electrolytes as clinically indicated for electrolyte protocol 05/27. Obtain stat labs, CBC with differential, BMP, magnesium and phosphorus. 05/28 potassium is severely depleted at 2.2, phosphorus is low at 1.7.. Will replace as per the ICU electrolyte protocol. Monitor BMP. Access Utilized peripheral IVs Prophylaxis GI - Protonix DVT - SCD/Lovenox subcutaneous Discharge Planning Patient with poor prognosis and severe respiratory distress. Case discussed with Kvng- son and staff nurse PAtient is DNR/DNI. Problem Qualifiers (1) Atrial fibrillation: Qualified Codes: I48.91 - Unspecified atrial fibrillation (2) Depression: Qualified Codes: F32.9 - Major depressive disorder, single episode, unspecified Joann Miranda MD May 30, 2017 17:48
[2017-05-30] MEDS: METOPROLOL TARTRATE 5 MG/5 ML VIAL IV PUSH SCH ×2 (18:29→22:31)
[2017-05-30 19:00] LABS: AUTOMATED NEUTROPHIL # 14.8 TH/MM3 (1.8-7.7); BASOPHIL % 0.2 % (0.0-2.0); HEMOGLOBIN 16.1 GM/DL (11.6-15.3); LYMPH % 4.5 % (9.0-44.0); LYMPHOCYTE # 0.7 TH/MM3 (1.0-4.8); MEAN CELL VOLUME 93.4 FL (80.0-100.0); MEAN CORPUSCULAR HEMOGLOBIN 32.7 PG (27.0-34.0); MEAN PLATELET VOLUME 10.2 FL (7.0-11.0); MONO % 5.7 % (0.0-8.0); MONOCYTE # 0.9 TH/MM3 (0-0.9); NEUT % 89.6 % (16.0-70.0); PLATELET COUNT 397 TH/MM3 (150-450); RED BLOOD COUNT 4.93 MIL/MM3 (4.00-5.30); RED CELL DISTRIBUTION WIDTH 17.9 % (11.6-17.2); WHITE BLOOD COUNT 16.6 TH/MM3 (4.0-11.0)
[2017-05-30 19:09] LABS: BICARBONATE 22.8 MEQ/L (21.0-32.0); CALCIUM 8.9 MG/DL (8.5-10.1); CREATININE 1.15 MG/DL (0.50-1.00)
[2017-05-30 20:39] LABS: TOXIC GRANULATION 1+ (NORMAL)
[2017-05-30] MEDS: ATORVASTATIN 80 MG TAB PO SCH (21:00)
[2017-05-30] MEDS: MONTELUKAST SODIUM 10 MG TAB PO SCH (21:00)
[2017-05-30] MEDS ORDERED: SODIUM CHLORIDE 0.9% INJ 50 ML ONE (22:20)
[2017-05-30] MEDS ORDERED: PIPERACIL-TAZO 3.375 GM PREMIX 50 ML ONE (22:20)
[2017-05-30] MEDS ORDERED: SODIUM CHLOR 0.45% 1000 ML INJ 1,000 ML IV SCH (23:45)
[2017-05-31] VITALS (14 sets, daily range): BP systolic 127–177; BP diastolic 69–89; PULSE 87–103; RESP 16–43; TEMP 97.2–99.2; O2SAT 94–97
[2017-05-31] MEDS: POTASSIUM CHLOR 20 MEQ PREMIX 100 ML IV PRN ×4 (00:10→06:10)
[2017-05-31] MEDS: LINEZOLID 600 MG PREMIX 300 ML IV SCH ×2 (00:11→14:55)
[2017-05-31] MEDS: LORazepam 2 MG/ML VIAL IV PUSH PRN (00:13)
[2017-05-31] MEDS: MORPHINE SULFATE 4 MG/ML INJ IV PUSH PRN ×3 (00:13→17:30)
[2017-05-31] MEDS: DILTIAZEM INJ 125 MG in SODIUM CHLORIDE 0.9% INJ 100 ML IV PRN ×2 (03:59→12:26)
[2017-05-31] MEDS: INSULIN ASPART SUPPLEMENTAL SCALE SQ SCH ×6 (04:00→20:00)
[2017-05-31] MEDS: CHLORHEXIDINE GLUCONATE 2 % 1 PACK (2 CLOTHS) TOP SCH (04:00)
[2017-05-31] MEDS: FAMOTIDINE 20 MG/2 ML VIAL IV PUSH SCH ×2 (04:00→14:55)
[2017-05-31] MEDS: PIPERACIL-TAZO 3.375 GM PREMIX 50 ML IV SCH ×4 (05:00→23:00)
[2017-05-31] MEDS ORDERED: SODIUM CHLORIDE 0.9% INJ 50 ML ONE ×4 (06:05→23:21)
[2017-05-31] MEDS ORDERED: PIPERACIL-TAZO 3.375 GM PREMIX 50 ML ONE ×4 (06:05→23:21)
[2017-05-31] MEDS: methylPREDNISolone SOD SUCC 125 MG/2 ML VIAL IV PUSH SCH ×3 (06:10→17:30)
[2017-05-31] MEDS: METOPROLOL TARTRATE 5 MG/5 ML VIAL IV PUSH SCH ×3 (06:10→17:29)
[2017-05-31] MEDS: CHLORHEXIDINE 0.12% (ORAL KIT) 15 ML CUP MT SCH ×2 (08:31→20:00)
[2017-05-31] MEDS: SODIUM CHLORIDE 0.9% FLUSH 10 ML FLUSH IV FLUSH SCH (08:32)
[2017-05-31] MEDS: ASPIRIN EC 81 MG TABEC PO SCH (09:00)
[2017-05-31] MEDS: ABACAVIR SULFATE 300 MG TAB PO SCH (09:00)
[2017-05-31] MEDS: OSELTAMIVIR PHOSPHATE 75 MG CAP PO SCH ×2 (09:00→21:00)
[2017-05-31] MEDS: AMIODARONE 200 MG TAB PO SCH ×2 (09:00→21:00)
[2017-05-31] MEDS: CLOPIDOGREL 75 MG TAB PO SCH (09:00)
[2017-05-31] MEDS: CARVEDILOL 12.5 MG TAB PO SCH ×2 (09:00→21:00)
[2017-05-31 10:22] LABS: BICARBONATE 23.8 MEQ/L (21.0-32.0); CALCIUM 7.9 MG/DL (8.5-10.1); CREATININE 1.07 MG/DL (0.50-1.00)
[2017-05-31] MEDS: DEXTROSE 5% IN WATE 1000ML INJ 1,000 ML IV SCH (11:02)
--- NOTE | 2017-05-31 11:06 | HHI.HCPN ---
Reason for visit a. To assist with evaluation and management of symptoms including: shortness of breath, debility b. To assist medical decision maker(s) with: better understanding of current medical conditions; weighing benefits/burdens of medical treatment options; making medical treatment decisions. Subjective/Interval History Patient seen and examined in her room on ICU. Patient is lethargic, briefly opens eyes to noxious stimulation with not tracking. Patient softly moaning during physical assessment. Patient is not following command but weakly moving all his extremities. No verbal response. Patient is currently on 4 L nasal cannula with O2 saturation in the mid 90s. Heart rate mid 90s to low 100 on 15 mg/hr Cardizem infusion. Patient is afebrile, no reports of diarrhea per bedside RN. Telephone conversation with patient's son Kvng, updated him on patient current medical status. Discussed the need for an NG tube for medication administration and feeding patient. Patient's son stated that he had a discussion with his brother and they have decided to stop aggressive treatment and pursue comfort care for their mother, giving her current medical status as well as her other multiple comorbidities. Patient has not shown much improvement or response to treatment since admission. Patient remains a DNR and patient`s son wants to continue to honor that. Patient`s son emphasized that his mother would not want to live in worse shape than she was already in after she had a stroke. He would not like to go against her wishes by having "tubes" placed especially if that is not going to improve the outcome. Patient`s son requested hospice services. Explained to him that HAART medications would be discontinued if she transitions to hospice. Patient`s son verbalized understanding. Telephone conversation with Dr. Bangura. Updated her conversation with patient` s son Kvng who is the health care proxy and she agrees that patient has a poor prognosis. . Family/friend interactions Left frontal conversation with patient's son Kvng. . Advance Directives Living Will: Never completed Health Care Surrogate: Never completed Durable Power of [employer] [facility]: Never completed Advance Directive Specifics Health Care Surrogate(s): Health Care Proxy -Son-Kvng NortonYiarltqpj-[phone] Email address: [email or web address] [phone] According to the [place] Statute, her 2 adult sons, Kvng Norton and Ever Norton would serve as her health care proxys. Patient`s son Errol Curtis opted out of medical decision making for his mother. . Significant change in goals: Patient son Kvng Childers wants to transition patient to comfort care only through hospice services. . Objective Vital Signs Date Time Temp Pulse Resp B/P (MAP) Pulse Ox O2 Delivery O2 Flow Rate FiO2 05/31/17 08:00 97.2 95 20 150/89 (109) 96 05/31/17 08:00 95 05/31/17 07:17 96 Nasal Cannula 4.00 05/31/17 07:00 97 Nasal Cannula 4.00 05/31/17 06:00 87 05/31/17 04:00 99.0 103 19 137/84 (101) 95 05/31/17 04:00 103 05/31/17 03:59 103 150/80 05/31/17 02:00 95 05/31/17 00:00 99.2 103 16 177/86 (116) 96 05/31/17 00:00 95 05/30/17 23:51 96 Nasal Cannula 4.00 05/30/17 22:00 95 05/30/17 20:00 98.9 106 24 148/82 (104) 94 05/30/17 20:00 106 05/30/17 19:30 94 Nasal Cannula 3.00 05/30/17 19:00 94 Nasal Cannula 4.00 05/30/17 18:31 110 149/95 05/30/17 18:28 26 05/30/17 18:00 116 05/30/17 16:00 120 05/30/17 16:00 97.3 120 40 142/94 (110) 93 05/30/17 14:00 130 05/30/17 12:00 128 05/30/17 12:00 97.8 128 32 142/85 (104) 93 Intake & Output 05/31/17 05/31/17 07:00 19:00 Output Total 600 ml Balance -600 ml Output Urine Total 600 ml Physical Exam CONSTITUTIONAL/GENERAL: This is an adequately nourished patient, in some discomfort. Slightly moaning TUBES/LINES/DRAINS: PIV, Gates catheter, NC SKIN: No jaundice, rashes, or lesions. Healed mastectomy scar to the left breast. ecchymoses on upper and lower extremities. No wounds seen anteriorly. Skin temperature appropriate. Not diaphoretic. HEAD: Atraumatic. Normocephalic. EYES: Pupils equal and round and reactive. Extraocular motions intact. No scleral icterus. No injection or drainage. Fundi not examined. ENT: Unable to assess. Nose without bleeding or purulent drainage. NECK: Trachea midline. Supple, nontender. CARDIOVASCULAR: Irregular rhythm without murmurs, gallops, or rubs.Low 100s. No JVD. Peripheral pulses symmetric. RESPIRATORY/CHEST: Symmetric,labored respirations. Rhonchi to auscultation. Diminished breath sounds in the lower lobes. No wheezes GASTROINTESTINAL: Abdomen soft, non-tender, nondistended. No guarding. Bowel sounds present. GENITOURINARY: Without palpable bladder distension. Gates catheter in place. MUSCULOSKELETAL: Extremities without clubbing or edema. No joint tenderness or effusion noted. No calf tenderness. NEUROLOGICAL: Lethargic, minimally responsive to noxious stimulation. Withdraws with all extremities. Not verbalizing PSYCHIATRIC: Unable to assess due to clinical condition . Diagnostic Tests Laboratory Laboratory Tests Test 05/28/17 13:16 05/29/17 04:25 05/30/17 18:17 05/31/17 09:41 White Blood Count 16.5 TH/MM3 (4.0-11.0) 20.6 TH/MM3 (4.0-11.0) 16.6 TH/MM3 (4.0-11.0) Red Blood Count 4.85 MIL/MM3 (4.00-5.30) 4.77 MIL/MM3 (4.00-5.30) 4.93 MIL/MM3 (4.00-5.30) Hemoglobin 15.4 GM/DL (11.6-15.3) 15.1 GM/DL (11.6-15.3) 16.1 GM/DL (11.6-15.3) Hematocrit 44.6 % (35.0-46.0) 43.5 % (35.0-46.0) 46.0 % (35.0-46.0) Mean Corpuscular Volume 91.8 FL (80.0-100.0) 91.3 FL (80.0-100.0) 93.4 FL (80.0-100.0) Mean Corpuscular Hemoglobin 31.8 PG (27.0-34.0) 31.6 PG (27.0-34.0) 32.7 PG (27.0-34.0) Mean Corpuscular Hemoglobin Concent 34.7 % (32.0-36.0) 34.6 % (32.0-36.0) 35.0 % (32.0-36.0) Red Cell Distribution Width 17.8 % (11.6-17.2) 17.5 % (11.6-17.2) 17.9 % (11.6-17.2) Platelet Count 246 TH/MM3 (150-450) 241 TH/MM3 (150-450) 397 TH/MM3 (150-450) Mean Platelet Volume 9.7 FL (7.0-11.0) 9.8 FL (7.0-11.0) 10.2 FL (7.0-11.0) Neutrophils (%) (Auto) 86.3 % (16.0-70.0) 90.8 % (16.0-70.0) 89.6 % (16.0-70.0) Lymphocytes (%) (Auto) 6.1 % (9.0-44.0) 3.7 % (9.0-44.0) 4.5 % (9.0-44.0) Monocytes (%) (Auto) 7.5 % (0.0-8.0) 5.3 % (0.0-8.0) 5.7 % (0.0-8.0) Eosinophils (%) (Auto) 0.0 % (0.0-4.0) 0.0 % (0.0-4.0) 0.0 % (0.0-4.0) Basophils (%) (Auto) 0.1 % (0.0-2.0) 0.2 % (0.0-2.0) 0.2 % (0.0-2.0) Neutrophils # (Auto) 14.2 TH/MM3 (1.8-7.7) 18.7 TH/MM3 (1.8-7.7) 14.8 TH/MM3 (1.8-7.7) Lymphocytes # (Auto) 1.0 TH/MM3 (1.0-4.8) 0.8 TH/MM3 (1.0-4.8) 0.7 TH/MM3 (1.0-4.8) Monocytes # (Auto) 1.2 TH/MM3 (0-0.9) 1.1 TH/MM3 (0-0.9) 0.9 TH/MM3 (0-0.9) Eosinophils # (Auto) 0.0 TH/MM3 (0-0.4) 0.0 TH/MM3 (0-0.4) 0.0 TH/MM3 (0-0.4) Basophils # (Auto) 0.0 TH/MM3 (0-0.2) 0.0 TH/MM3 (0-0.2) 0.0 TH/MM3 (0-0.2) CBC Comment AUTO DIFF AUTO DIFF AUTO DIFF Differential Comment AUTO DIFF CONFIRMED FINAL DIFF MANUAL AUTO DIFF CONFIRMED Platelet Estimate NORMAL (NORMAL) NORMAL (NORMAL) NORMAL (NORMAL) Platelet Morphology Comment ENLARGED (NORMAL) NORMAL (NORMAL) NORMAL (NORMAL) Blood Urea Nitrogen 41 MG/DL (7-18) 44 MG/DL (7-18) 64 MG/DL (7-18) 66 MG/DL (7-18) Creatinine 0.97 MG/DL (0.50-1.00) 1.00 MG/DL (0.50-1.00) 1.15 MG/DL (0.50-1.00) 1.07 MG/DL (0.50-1.00) Random Glucose 208 MG/DL (74-106) 184 MG/DL (74-106) 196 MG/DL (74-106) 200 MG/DL (74-106) Total Protein 7.3 GM/DL (6.4-8.2) 7.1 GM/DL (6.4-8.2) Albumin 2.6 GM/DL (3.4-5.0) 2.6 GM/DL (3.4-5.0) Calcium Level 8.8 MG/DL (8.5-10.1) 8.7 MG/DL (8.5-10.1) 8.9 MG/DL (8.5-10.1) 7.9 MG/DL (8.5-10.1) Phosphorus Level 1.7 MG/DL (2.5-4.9) 1.7 MG/DL (2.5-4.9) Magnesium Level 2.0 MG/DL (1.5-2.5) 1.9 MG/DL (1.5-2.5) Alkaline Phosphatase 108 U/L (45-117) 107 U/L (45-117) Aspartate Amino Transf (AST/SGOT) 30 U/L (15-37) 40 U/L (15-37) Alanine Aminotransferase (ALT/SGPT) 69 U/L (10-53) 61 U/L (10-53) Total Bilirubin 0.4 MG/DL (0.2-1.0) 0.6 MG/DL (0.2-1.0) Sodium Level 149 MEQ/L (136-145) 153 MEQ/L (136-145) 159 MEQ/L (136-145) 162 MEQ/L (136-145) Potassium Level 2.2 MEQ/L (3.5-5.1) 3.2 MEQ/L (3.5-5.1) 2.7 MEQ/L (3.5-5.1) 4.1 MEQ/L (3.5-5.1) Chloride Level 116 MEQ/L (98-107) 120 MEQ/L (98-107) 125 MEQ/L (98-107) 128 MEQ/L (98-107) Carbon Dioxide Level 21.6 MEQ/L (21.0-32.0) 19.7 MEQ/L (21.0-32.0) 22.8 MEQ/L (21.0-32.0) 23.8 MEQ/L (21.0-32.0) Anion Gap 11 MEQ/L (5-15) 13 MEQ/L (5-15) 11 MEQ/L (5-15) 10 MEQ/L (5-15) Estimat Glomerular Filtration Rate 58 ML/MIN (>89) 56 ML/MIN (>89) 47 ML/MIN (>89) 51 ML/MIN (>89) Differential Total Cells Counted 100 Neutrophils % (Manual) 86 % (16-70) Lymphocytes % 6 % (9-44) Monocytes % 6 % (0-8) Neutrophils # (Manual) 18.1 TH/MM3 (1.8-7.7) Myelocytes 2 % (0-0) Nucleated Red Blood Cells 1 /100 WBC (0-0) Toxic Granulation 1+ (NORMAL) 1+ (NORMAL) Absolute Lymphocytes (Cell Immunity 740 (850-3900) Percent CD3 Cells 56 % (57-85) Absolute CD3 Count 412 (840-3060) Percent CD3-/CD16+/CD56+ Cells 6 % (4-25) Absolute CD3-/CD16+/CD56+ Count 46 (70-760) Percent CD4 Cells 26 % (30-61) Absolute CD4 Count 188 (490-1740) T-Sterling/Suppressor Ratio 0.9 (0.86-5.00) Percent CD8 Cells 29 % (12-42) Absolute CD8 Count 210 (180-1170) Percent CD19 Cells 36 % (6-29) Absolute CD19 Count 269 (110-660) Result Diagram: 05/30/17181605/30/171816 Assessment and Plan Disease Oriented Problem List: (1) Bilateral multilobar pneumonia (2) Acute kidney injury (3) History of HIV infection (4) Elevated liver enzymes (5) Atrial fibrillation with RVR (6) History of diabetes mellitus (7) History of ischemic left MCA stroke Symptom Scale: (1) Shortness of breath 0-10 Scale: Unable to quantify Comment: Multifactorial. Patient has cardiac history and COPD. Patient also had influenza. Came in with in respiratory distress chest x-ray revealed bilateral pneumonia. . (2) Debility 0-10 Scale: Unable to quantify Comment: Progressive. . Pertinent Non-Medical Issues Psychosocial:Patient was born in [place] and was raised in [place]. Patient was and twice. Patient his 2 adult sons. 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 Spiritual: Patient is Faith-Open to coconut cooker visits per son Kvng Legal:Patient has a signed Community DNR Ethical issues impacting care:None identified at this time . Important Contacts Kvng [place] [phone] Email address: [email or web address] [place] [phone] Sister- Arash Palmer-[phone] Granddaughter-Charissa [phone] Friend-Raheel Bustillo- [phone] . Prognosis Mrs Easley is a 67 years old female with a past medical history of asthma, tobacco use, CVA with residual right hemiparesis and expressive aphasia, CAD, chronic atrial fibrillation, carotid stenosis, hypertension, hepatitis C, HIV on HAART and GERD. Patient was brought to the ER on 05/24/17 from a senior living after she was noted to be in worsening respiratory distress and low grade fever. Patient was being treated with Tamiflu for influenza and was on day 5 when she came to the ER. Clinical course complicated with respiratory failure, leucocytosis, atrial fibrillation with RVR and diarrhea. Given ongoing comorbidities, patient remains at high risk for further complications, deterioration and decline. . Code Status: No Code Plan PLAN: Legal decision maker: Patient is currently lethargic, no verbalizing and is not able to participate in medical decision making. According to the [place] Statute , patient`s son, Kvng Vasquez will serve as her health care proxy. Goals: Aggressive short of no code CODE STATUS: No Code DNR SYMPTOMS: * Shortness of breath: Multifactorial. Patient has cardiac history and COPD. Patient also had influenza. Came in with in respiratory distress. Chest x-ray revealed bilateral pneumonia. Patient is on Tamiflu and antibiotics. She is is off BIPAP and now on 4L NC saturating in the low to mid 90s. Patient is also on Solu-Medrol Q 6HRS, morphine sulfate 2 mg Q 3HRS, duo nebsQ 4 HRS PRN. No recommendations at this time. * Debility: Progressive. Patient has a history of CVA with residual right- sided hemiparesis and expressive aphasia. Per son, patient was ambulating with no assistive device at the senior living. Patient may benefit from Physical therapy, speech and occupational therapy if goals remain aggressive though at this time patient will most likely be unable to effectively participate due to her respiratory and cardiac status. . Palliative care will continue to follow the patient during hospital course as condition evolves, to assist patient/decision-maker with understanding of their medical conditions, weighing benefits/burdens of treatment options, for clarification of goals of treatment. Additionally will assist with any symptoms of palliative concern Attestation To help prompt me to consider important information that might be impacting today's encounter and assessment, information from prior notes written by myself or my colleagues may have been "brought forward" into today's note. My signature on this note, however, is an attestation that I personally performed the exam, history, and/or decision-making noted today, and, unless otherwise indicated, the interactions with patient, family, and staff as well as the review of records all occurred today. I also attest that the listed assessment and stated plan reflect my best clinical judgment today based on the combination of historical information, prior notes, and today's exam/ interactions. When time spent is documented, it refers only to time spent today by the signer, or if indicated, combined time spent today by collaborating physician/nurse practitioner. Natacha Nair May 31, 2017 11:06
--- NOTE | 2017-05-31 13:07 | HHI.PR ---
Subjective Remarks rate controlled on Cardizem drip opened eyes to call of her name but otherwise no meaningful interaction Objective Vitals Vital Signs Date Time Temp Pulse Resp B/P (MAP) Pulse Ox O2 Delivery O2 Flow Rate FiO2 05/31/17 12:26 103 174/88 05/31/17 12:00 101 05/31/17 10:00 103 05/31/17 08:00 97.2 95 20 150/89 (109) 96 05/31/17 08:00 95 05/31/17 07:17 96 Nasal Cannula 4.00 05/31/17 07:00 97 Nasal Cannula 4.00 05/31/17 06:00 87 05/31/17 04:00 99.0 103 19 137/84 (101) 95 05/31/17 04:00 103 05/31/17 03:59 103 150/80 05/31/17 02:00 95 05/31/17 00:00 99.2 103 16 177/86 (116) 96 05/31/17 00:00 95 05/30/17 23:51 96 Nasal Cannula 4.00 05/30/17 22:00 95 05/30/17 20:00 98.9 106 24 148/82 (104) 94 05/30/17 20:00 106 05/30/17 19:30 94 Nasal Cannula 3.00 05/30/17 19:00 94 Nasal Cannula 4.00 05/30/17 18:31 110 149/95 05/30/17 18:28 26 05/30/17 18:00 116 05/30/17 16:00 120 05/30/17 16:00 97.3 120 40 142/94 (110) 93 05/30/17 14:00 130 I/O 05/30/17 05/30/17 05/30/17 05/31/17 05/31/17 05/31/17 07:00 15:00 23:00 07:00 15:00 23:00 Intake Total 574 ml 175 ml 425 ml Output Total 1200 ml 950 ml 600 ml Balance -626 ml 175 ml -525 ml -600 ml Intake Oral 0 ml IV Total 574 ml 175 ml 425 ml Output Urine Total 1200 ml 950 ml 600 ml # Bowel Movements 0 0 Result Diagram: 05/30/17181605/31/17 0941 Imaging Last Impressions Chest X-Ray 05/28/17 0000 Signed Impressions: Service Date/Time: Sunday, May 28, 2017 09:04 - CONCLUSION: The improvement with less interstitial edema. Esteban Clarke MD FACR Liver Ultrasound 05/24/17 0000 Signed Impressions: Service Date/Time: Wednesday, May 24, 2017 13:48 - CONCLUSION: 1. Mild increased echotexture of the liver may indicate steatosis. 2. Cholelithiasis. Dre Goodman MD Chest CT 05/24/17 0000 Signed Impressions: Service Date/Time: Wednesday, May 24, 2017 13:27 - CONCLUSION: Patchy airspace disease scattered consolidation both lungs. No pleural effusion. Esteban Clarke MD FACR Objective Remarks lethargic pupils equal lungs- decrease breath sounds rate controlled- on Cardizem drip abdomen= soft extremities no edema L sided extremities- flaccid A/P Problem List: (1) Acute hypoxemic respiratory failure ICD Code: J96.01 - Acute respiratory failure with hypoxia Status: Acute (2) Acute exacerbation of chronic obstructive pulmonary disease (COPD) ICD Code: J44.1 - Chronic obstructive pulmonary disease with (acute) exacerbation (3) Severe sepsis ICD Code: A41.9 - Sepsis, unspecified organism; R65.20 - Severe sepsis without septic shock (4) Healthcare-associated pneumonia ICD Code: J18.9 - Pneumonia, unspecified organism (5) Bilateral multilobar pneumonia (6) Influenza ICD Code: J11.1 - Influenza due to unidentified influenza virus with other respiratory manifestations (7) Acute kidney injury ICD Code: N17.9 - Acute kidney failure, unspecified (8) Atrial fibrillation with RVR ICD Code: I48.91 - Unspecified atrial fibrillation Status: Acute (9) Atrial fibrillation ICD Code: I48.91 - Unspecified atrial fibrillation Status: Acute (10) Expressive aphasia ICD Code: R47.01 - Aphasia Status: Acute (11) Depression ICD Code: F32.9 - Major depressive disorder, single episode, unspecified Status: Chronic (12) Hypertension ICD Code: I10 - Essential (primary) hypertension Status: Chronic (13) HLD (hyperlipidemia) ICD Code: E78.5 - Hyperlipidemia, unspecified Status: Chronic (14) Left acute arterial ischemic stroke, MCA (middle cerebral artery) ICD Code: I63.512 - Cerebral infarction due to unspecified occlusion or stenosis of left middle cerebral artery Status: Acute (15) History of diabetes mellitus ICD Code: Z86.39 - Personal history of other endocrine, nutritional and metabolic disease Status: Chronic (16) Left carotid stenosis ICD Code: I65.22 - Occlusion and stenosis of left carotid artery Status: Acute Assessment and Plan Neuro/Psych: History of left MCA stroke with right hemiparesis Depression Peripheral neuropathy Encephalopathy Continue aspirin/Plavix PT/OT once stabilized respiratory prince Hold as needed Xanax, Prozac, Neurontin, Ambien 05/27 suspect encephalopathy secondary to CO2 narcosis since patient is in respiratory distress on BiPAP. I will obtain an ABG. Continue to monitor neurological status. 3/ encephalopathy likely secondary to metabolic encephalopathy due to hypernatremia. Palliative care on board CV: Atrial fibrillation with rapid ventricular response CAD with History of non-STEMI Dyslipidemia Left carotid stenosis History of hypertension Chronic A. fib Cardizem infusion for rate control- continue . Start IV Lopressor 5 mg q 6 Continue Home medications Coreg and amiodarone, hold p.o. Cardizem, and losartan - po meds not being given- lethargic Continue aspirin Plavix 2 D Echo. Echocardiogram in 2014 EF around 50%. 3 patient on A. fib with RVR. Currently not on Cardizem infusion. Heart rate in the high 130s. Ordered EKG stat. Will give Cardizem IV bolus and placed on Cardizem drip. Will check cardiac enzymes, TSH free T4. 3/ patient still with A. fib with RVR however better controlled. Continue Cardizem drip. TSH was slightly decreased at 0.119, however free T4 1.20. Acute hypoxemic respiratory failure Multilobar pneumonia recent influenza Acute COPD exacerbation Off BiPAP DuoNeb every 4 hours scheduled and as needed Broad-spectrum antibiotics with Zosyn, Zyvox, Tamiflu 3/ x-ray shows deterioration with decreasing interstitial changes in both lungs , reviewed by me and likely consistent with acute pulmonary edema. I will obtain an ABG stat, ordered Lasix 60 mg IV once and 40 mg IV twice daily, 125 mg of IV Solu-Medrol and 60 g IV every 8 hours. Discontinue IV fluids. Order stat labs. Discussed the case with Dr. Martel who states the patient DNR/DNI. Nurse is trying to get in touch with family or contact available. I will change the BiPAP setting to 12/5. 3/4 respiratory failure is improving. The patient is off BiPAP. Continue IV Solu-Medrol which I will increase to 60 mg IV every 6 hours. Continue Lasix 40 mg IV twice daily. Continue antibiotics as per ID. Continue IV Zosyn. GI: History of hepatitis C History diverticulosis Elevated liver enzymes Advance PO as tolerated. IV Famotidine Check liver and gallbladder ultrasound : Acute kidney injury Gates will be placed for accurate I's and O's in a critically ill patient IVF as above Endo: Diabetes mellitus Place on sliding scale insulin. Accu-Cheks to maintain euglycemia 3. For blood sugar severely elevated Heme: Monitor CBC daily. ID: Bilateral pneumonia healthcare associated Reason influenza HIV Placed on Zosyn and Zyvox, and continue Tamiflu for influenza with superadded bacterial pneumonia Continue HAART Antibiotics as per ID. ENDO: Hypokalemia Hypophosphatemia. Hyponatremia -encourage oral intake of fluids. Monitor BMP Replace electrolytes as clinically indicated for electrolyte protocol 05/27. Obtain stat labs, CBC with differential, BMP, magnesium and phosphorus. 3/4 potassium is severely depleted at 2.2, phosphorus is low at 1.7.. Will replace as per the ICU electrolyte protocol. Monitor BMP. Access Utilized peripheral IVs Prophylaxis GI - Protonix DVT - SCD/Lovenox subcutaneous Discharge Planning Patient with poor prognosis and severe respiratory distress. Case discussed with Kvng- son and staff nurse PAtient is DNR/DNI. transition to hospice will discuss with family [facility] Problem Qualifiers (1) Atrial fibrillation: Qualified Codes: I48.91 - Unspecified atrial fibrillation (2) Depression: Qualified Codes: F32.9 - Major depressive disorder, single episode, unspecified Joann Miranda MD May 31, 2017 13:07
[2017-05-31] MEDS: hydrALAZINE HCL 20 MG/ML VIAL IV PRN (14:54)
[2017-05-31] MEDS: ENOXAPARIN SODIUM 40 MG/0.4 ML SYRINGE SQ SCH (14:55)
--- NOTE | 2017-05-31 15:52 | HHI.PR ---
Addendum to Inpatient Note Additional Information Pt seen today around 1330 full note to follow Doing worse R side rhosantos chaney with hospice consult Margaret Judge MD May 31, 2017 15:52
--- NOTE | 2017-05-31 20:13 | HHI.IDPN ---
Subjective Subjective Remarks seen earlier today lethargic on NVC O2 looks unfortable Na is [id number] Creatinine went up Antibiotics Abacavir, Epivir, Sustiva, NOrvir zyvox zosyn tamiflu Allergies: Coded Allergies: acetaminophen (Unverified Allergy, Severe, GI UPSET, 11/08/16) hydrocodone (Unverified Allergy, Severe, GI UPSET, 11/08/16) Objective . Vital Signs Date Time Temp Pulse Resp B/P (MAP) Pulse Ox O2 Delivery O2 Flow Rate FiO2 05/31/17 18:00 91 05/31/17 16:00 101 05/31/17 16:00 97.3 101 43 141/69 (93) 97 05/31/17 14:00 100 05/31/17 12:26 103 174/88 05/31/17 12:00 101 05/31/17 12:00 98.0 101 40 174/88 (116) 96 05/31/17 10:00 103 05/31/17 08:00 97.2 95 20 150/89 (109) 96 05/31/17 08:00 95 05/31/17 07:17 96 Nasal Cannula 4.00 05/31/17 07:00 97 Nasal Cannula 4.00 05/31/17 06:00 87 05/31/17 04:00 99.0 103 19 137/84 (101) 95 05/31/17 04:00 103 05/31/17 03:59 103 150/80 05/31/17 02:00 95 05/31/17 00:00 99.2 103 16 177/86 (116) 96 05/31/17 00:00 95 05/30/17 23:51 96 Nasal Cannula 4.00 05/30/17 22:00 95 05/30/17 20:00 98.9 106 24 148/82 (104) 94 05/30/17 20:00 106 05/31/17 05/31/17 06/01/17 15:00 23:00 07:00 Intake Total 0 ml Output Total 825 ml Balance -825 ml Intake Oral 0 ml Output Urine Total 825 ml # Bowel Movements 1 . Laboratory Tests Test 05/30/17 18:17 White Blood Count 16.6 TH/MM3 Red Blood Count 4.93 MIL/MM3 Hemoglobin 16.1 GM/DL Hematocrit 46.0 % Mean Corpuscular Volume 93.4 FL Mean Corpuscular Hemoglobin 32.7 PG Mean Corpuscular Hemoglobin Concent 35.0 % Red Cell Distribution Width 17.9 % Platelet Count 397 TH/MM3 Mean Platelet Volume 10.2 FL Neutrophils (%) (Auto) 89.6 % Lymphocytes (%) (Auto) 4.5 % Monocytes (%) (Auto) 5.7 % Eosinophils (%) (Auto) 0.0 % Basophils (%) (Auto) 0.2 % Neutrophils # (Auto) 14.8 TH/MM3 Lymphocytes # (Auto) 0.7 TH/MM3 Monocytes # (Auto) 0.9 TH/MM3 Eosinophils # (Auto) 0.0 TH/MM3 Basophils # (Auto) 0.0 TH/MM3 CBC Comment AUTO DIFF Differential Comment AUTO DIFF CONFIRMED Toxic Granulation 1+ Platelet Estimate NORMAL Platelet Morphology Comment NORMAL Laboratory Tests Test 05/30/17 18:17 05/31/17 09:41 Blood Urea Nitrogen 64 MG/DL 66 MG/DL Creatinine 1.15 MG/DL 1.07 MG/DL Random Glucose 196 MG/DL 200 MG/DL Calcium Level 8.9 MG/DL 7.9 MG/DL Sodium Level 159 MEQ/L 162 MEQ/L Potassium Level 2.7 MEQ/L 4.1 MEQ/L Chloride Level 125 MEQ/L 128 MEQ/L Carbon Dioxide Level 22.8 MEQ/L 23.8 MEQ/L Anion Gap 11 MEQ/L 10 MEQ/L Estimat Glomerular Filtration Rate 47 ML/MIN 51 ML/MIN Imaging Last Impressions Chest X-Ray 05/28/17 0000 Signed Impressions: Service Date/Time: Sunday, May 28, 2017 09:04 - CONCLUSION: The improvement with less interstitial edema. Esteban Clarke MD FACR Liver Ultrasound 05/24/17 0000 Signed Impressions: Service Date/Time: Wednesday, May 24, 2017 13:48 - CONCLUSION: 1. Mild increased echotexture of the liver may indicate steatosis. 2. Cholelithiasis. Dre Goodman MD Chest CT 05/24/17 0000 Signed Impressions: Service Date/Time: Wednesday, May 24, 2017 13:27 - CONCLUSION: Patchy airspace disease scattered consolidation both lungs. No pleural effusion. Esteban Clarke MD FACR Physical Exam CONSTITUTIONAL/GENERAL: This is a morbidly obese patient, in mild to moderated resp distress. SKIN: No jaundice, rashes, or lesions. Skin temperature appropriate. Not diaphoretic. BREASTS: mastectomy scar L breast - well healed HEAD: Atraumatic. Normocephalic. EYES: Pupils equal and round and reactive. Extraocular motions intact. No scleral icterus. No injection or drainage. Fundi not examined. ENT: dry mucosae CARDIOVASCULAR: Regular rate and rhythm without murmurs, gallops, or rubs. No JVD. Peripheral pulses symmetric. Perifery well perfused RESPIRATORY/CHEST: Symmetric, unlabored respirations. cont to have diffuse b/l rhonchi to auscultation. Breath sounds equal bilaterally. GASTROINTESTINAL: Abdomen soft, non-tender, distended. No hepato-splenomegaly, or palpable masses. No guarding. Bowel sounds present. GENITOURINARY: Without palpable bladder distension. MUSCULOSKELETAL: Extremities without clubbing, cyanosis, or edema. NEUROLOGICAL: totaolly obtunded; not following Assessment & Plan Remarks Assessment and Plan Influenza PNA Impending resp failure: requires non ivasive vent'n HIV, unknown immunosuppression status Morbid obesety COPD Chronic tobaccoism Abx associated diarrhea - new issue - appears to resolve Gram positive bactremia 2/2 different organisms - cw contamination Worsenig leukocytosis Dry Prognosis is poor - agree with consulting hospice cont current abx cont tamiflu cont HAART fu sputum clx fu blood clx chk stool for C.diff if again diarrhea dw palliative Margaret Judge MD May 31, 2017 20:12
[2017-05-31] MEDS: MONTELUKAST SODIUM 10 MG TAB PO SCH (21:00)
[2017-05-31] MEDS: ATORVASTATIN 80 MG TAB PO SCH (21:00)
[2017-06-01] VITALS (13 sets, daily range): BP systolic 152–174; BP diastolic 71–85; PULSE 83–110; RESP 17–18; TEMP 97.5–98.2; O2SAT 95–97
[2017-06-01] MEDS: LORazepam 2 MG/ML VIAL IV PUSH PRN
[2017-06-01] MEDS: SODIUM CHLORIDE 0.9% FLUSH 10 ML FLUSH IV FLUSH SCH ×2 (00:01→09:24)
[2017-06-01] MEDS: MORPHINE SULFATE 4 MG/ML INJ IV PUSH PRN ×3 (00:01→15:59)
[2017-06-01] MEDS: methylPREDNISolone SOD SUCC 125 MG/2 ML VIAL IV PUSH SCH ×4 (00:03→17:39)
[2017-06-01] MEDS: METOPROLOL TARTRATE 5 MG/5 ML VIAL IV PUSH SCH ×4 (00:03→15:57)
[2017-06-01] MEDS: CHLORHEXIDINE GLUCONATE 2 % 1 PACK (2 CLOTHS) TOP SCH (04:00)
[2017-06-01] MEDS: PIPERACIL-TAZO 3.375 GM PREMIX 50 ML IV SCH ×2 (05:00→11:00)
[2017-06-01] MEDS ORDERED: SODIUM CHLORIDE 0.9% INJ 50 ML ONE ×4 (05:15→15:51)
[2017-06-01] MEDS ORDERED: PIPERACIL-TAZO 3.375 GM PREMIX 50 ML ONE ×4 (05:15→15:51)
[2017-06-01] MEDS: DEXTROSE 5% IN WATE 1000ML INJ 1,000 ML IV SCH (05:23)
[2017-06-01] MEDS: LINEZOLID 600 MG PREMIX 300 ML IV SCH ×2 (05:24→14:03)
[2017-06-01] MEDS: FAMOTIDINE 20 MG/2 ML VIAL IV PUSH SCH ×2 (05:25→14:03)
[2017-06-01] MEDS: INSULIN ASPART SUPPLEMENTAL SCALE SQ SCH ×5 (05:35→15:57)
[2017-06-01] MEDS: CHLORHEXIDINE 0.12% (ORAL KIT) 15 ML CUP MT SCH (08:00)
[2017-06-01] MEDS: CARVEDILOL 12.5 MG TAB PO SCH (09:00)
[2017-06-01] MEDS: ABACAVIR SULFATE 300 MG TAB PO SCH (09:00)
[2017-06-01] MEDS: CLOPIDOGREL 75 MG TAB PO SCH (09:00)
[2017-06-01] MEDS: AMIODARONE 200 MG TAB PO SCH (09:00)
[2017-06-01] MEDS: OSELTAMIVIR PHOSPHATE 75 MG CAP PO SCH (09:00)
[2017-06-01] MEDS: ASPIRIN EC 81 MG TABEC PO SCH (09:00)
[2017-06-01] MEDS: DILTIAZEM INJ 125 MG in SODIUM CHLORIDE 0.9% INJ 100 ML IV PRN ×3 (09:29)
--- NOTE | 2017-06-01 12:13 | HHI.PR ---
Subjective Remarks lethargic- did open her eyes and looked around to call of her name Objective Vitals Vital Signs Date Time Temp Pulse Resp B/P (MAP) Pulse Ox O2 Delivery O2 Flow Rate FiO2 06/01/17 10:46 17 06/01/17 10:00 86 06/01/17 09:29 93 165/74 06/01/17 09:28 89 165/71 06/01/17 08:00 86 06/01/17 08:00 98.1 86 17 158/72 (100) 96 06/01/17 07:00 96 Nasal Cannula 4.00 06/01/17 07:00 95 21 06/01/17 06:00 89 06/01/17 04:00 98.2 91 17 153/71 (98) 96 06/01/17 04:00 91 06/01/17 02:00 86 06/01/17 00:00 110 06/01/17 00:00 97.7 110 18 152/85 (107) 96 06/01/17 00:00 111 150/101 05/31/17 22:00 102 05/31/17 20:00 98.0 93 19 127/71 (89) 94 05/31/17 20:00 93 05/31/17 20:00 93 Nasal Cannula 4.00 05/31/17 19:48 94 Nasal Cannula 4.00 05/31/17 18:00 91 05/31/17 16:00 101 05/31/17 16:00 97.3 101 43 141/69 (93) 97 05/31/17 14:00 100 05/31/17 12:26 103 174/88 I/O 05/31/17 05/31/17 05/31/17 06/01/17 06/01/17 06/01/17 07:00 15:00 23:00 07:00 15:00 23:00 Intake Total 350 ml 1400 ml Output Total 600 ml 825 ml 650 ml Balance -600 ml -475 ml 750 ml Intake Oral 0 ml IV Total 350 ml 1400 ml Output Urine Total 600 ml 825 ml 650 ml # Bowel Movements 1 Result Diagram: 05/30/17 1817 05/31/17 0941 Imaging Last Impressions Chest X-Ray 05/28/17 0000 Signed Impressions: Service Date/Time: Sunday, May 28, 2017 09:04 - CONCLUSION: The improvement with less interstitial edema. Esteban Clarke MD FACR Liver Ultrasound 05/24/17 0000 Signed Impressions: Service Date/Time: Wednesday, May 24, 2017 13:48 - CONCLUSION: 1. Mild increased echotexture of the liver may indicate steatosis. 2. Cholelithiasis. Dre Goodman MD Chest CT 05/24/17 0000 Signed Impressions: Service Date/Time: Wednesday, May 24, 2017 13:27 - CONCLUSION: Patchy airspace disease scattered consolidation both lungs. No pleural effusion. Esteban Clarke MD FACR Objective Remarks lethargic pupils equal lungs- decrease breath sounds, no rales or wheezes rate controlled- on Cardizem drip abdomen= soft extremities no edema L sided extremities- flaccid A/P Problem List: (1) Acute hypoxemic respiratory failure ICD Code: J96.01 - Acute respiratory failure with hypoxia Status: Acute (2) Acute exacerbation of chronic obstructive pulmonary disease (COPD) ICD Code: J44.1 - Chronic obstructive pulmonary disease with (acute) exacerbation (3) Severe sepsis ICD Code: A41.9 - Sepsis, unspecified organism; R65.20 - Severe sepsis without septic shock (4) Healthcare-associated pneumonia ICD Code: J18.9 - Pneumonia, unspecified organism (5) Bilateral multilobar pneumonia (6) Influenza ICD Code: J11.1 - Influenza due to unidentified influenza virus with other respiratory manifestations (7) Acute kidney injury ICD Code: N17.9 - Acute kidney failure, unspecified (8) Atrial fibrillation with RVR ICD Code: I48.91 - Unspecified atrial fibrillation Status: Acute (9) Atrial fibrillation ICD Code: I48.91 - Unspecified atrial fibrillation Status: Acute (10) Expressive aphasia ICD Code: R47.01 - Aphasia Status: Acute (11) Depression ICD Code: F32.9 - Major depressive disorder, single episode, unspecified Status: Chronic (12) Hypertension ICD Code: I10 - Essential (primary) hypertension Status: Chronic (13) HLD (hyperlipidemia) ICD Code: E78.5 - Hyperlipidemia, unspecified Status: Chronic (14) Left acute arterial ischemic stroke, MCA (middle cerebral artery) ICD Code: I63.512 - Cerebral infarction due to unspecified occlusion or stenosis of left middle cerebral artery Status: Acute (15) History of diabetes mellitus ICD Code: Z86.39 - Personal history of other endocrine, nutritional and metabolic disease Status: Chronic (16) Left carotid stenosis ICD Code: I65.22 - Occlusion and stenosis of left carotid artery Status: Acute Assessment and Plan Neuro/Psych: History of left MCA stroke with right hemiparesis Depression Peripheral neuropathy Encephalopathy Continue aspirin/Plavix PT/OT once stabilized respiratory prince Hold as needed Xanax, Prozac, Neurontin, Ambien 05/27 suspect encephalopathy secondary to CO2 narcosis since patient is in respiratory distress on BiPAP. I will obtain an ABG. Continue to monitor neurological status. 3/ encephalopathy likely secondary to metabolic encephalopathy due to hypernatremia. Palliative care on board Hospice consult CV: Atrial fibrillation with rapid ventricular response- rate controlled CAD with History of non-STEMI Dyslipidemia Left carotid stenosis History of hypertension Chronic A. fib Cardizem infusion for rate control- continue . Start IV Lopressor 5 mg q 6 Continue Home medications Coreg and amiodarone, hold p.o. Cardizem, and losartan - po meds not being given- lethargic Continue aspirin Plavix 2 D Echo. Echocardiogram in 2014 EF around 50%. 05/27 patient on A. fib with RVR. Currently not on Cardizem infusion. Heart rate in the high 130s. Ordered EKG stat. Will give Cardizem IV bolus and placed on Cardizem drip. Will check cardiac enzymes, TSH free T4. Continue Cardizem drip at 10 mg/hr. TSH was slightly decreased at 0.119, however free T4 1.20. Acute hypoxemic respiratory failure Multilobar pneumonia recent influenza Acute COPD exacerbation Off BiPAP DuoNeb every 4 hours scheduled and as needed Broad-spectrum antibiotics with Zosyn, Zyvox, Tamiflu 3/ x-ray shows deterioration with decreasing interstitial changes in both lungs , reviewed by me and likely consistent with acute pulmonary edema. I will obtain an ABG stat, ordered Lasix 60 mg IV once and 40 mg IV twice daily, 125 mg of IV Solu-Medrol and 60 g IV every 8 hours. Discontinue IV fluids. Order stat labs. Discussed the case with Dr. Martel who states the patient DNR/DNI. Nurse is trying to get in touch with family or contact available. I will change the BiPAP setting to 02/28. 3/4 respiratory failure is improving. The patient is off BiPAP. Continue IV Solu-Medrol which I will increase to 60 mg IV every 6 hours. Continue Lasix 40 mg IV twice daily. Continue antibiotics as per ID. Continue IV Zosyn. GI: History of hepatitis C History diverticulosis Elevated liver enzymes Advance PO as tolerated. IV Famotidine Check liver and gallbladder ultrasound : Acute kidney injury Gates will be placed for accurate I's and O's in a critically ill patient IVF as above Endo: Diabetes mellitus Place on sliding scale insulin. Accu-Cheks to maintain euglycemia 3. For blood sugar severely elevated Heme: Monitor CBC daily. ID: Bilateral pneumonia healthcare associated Reason influenza HIV Placed on Zosyn and Zyvox, and continue Tamiflu for influenza with superadded bacterial pneumonia Continue HAART Antibiotics as per ID. ENDO: Hypokalemia Hypophosphatemia. Hyponatremia -encourage oral intake of fluids. Monitor BMP Replace electrolytes as clinically indicated for electrolyte protocol 3/3. Obtain stat labs, CBC with differential, BMP, magnesium and phosphorus. 3/4 potassium is severely depleted at 2.2, phosphorus is low at 1.7.. Will replace as per the ICU electrolyte protocol. Monitor BMP. Access Utilized peripheral IVs Prophylaxis GI - Protonix DVT - SCD/Lovenox subcutaneous Discharge Planning Patient with poor prognosis and severe respiratory distress. Case discussed with Kvng- son and staff nurse PAtient is DNR/DNI. 1645- d/w Hospice nurse- Pretty- spoke with family- discharge to Hospice care center today Problem Qualifiers (1) Atrial fibrillation: Qualified Codes: I48.91 - Unspecified atrial fibrillation (2) Depression: Qualified Codes: F32.9 - Major depressive disorder, single episode, unspecified Joann Miranda MD Jun 01, 2017 12:13
[2017-06-01] MEDS: ENOXAPARIN SODIUM 40 MG/0.4 ML SYRINGE SQ SCH (14:02)
--- NOTE | 2017-06-01 16:50 | HHI.DS ---
Discharge Summary Admission Date May 24, 2017 at 13:09 Discharge Date: Jun 01, 2017 Admitting Diagnosis acute hypoxemic resp failure, HCAP,afib with rvr,DNR (1) Acute hypoxemic respiratory failure ICD Code: J96.01 - Acute respiratory failure with hypoxia Diagnosis: Principal Status: Acute (2) Acute exacerbation of chronic obstructive pulmonary disease (COPD) ICD Code: J44.1 - Chronic obstructive pulmonary disease with (acute) exacerbation Diagnosis: Principal (3) Severe sepsis ICD Code: A41.9 - Sepsis, unspecified organism; R65.20 - Severe sepsis without septic shock Diagnosis: Principal (4) Healthcare-associated pneumonia ICD Code: J18.9 - Pneumonia, unspecified organism Diagnosis: Principal (5) Influenza ICD Code: J11.1 - Influenza due to unidentified influenza virus with other respiratory manifestations Diagnosis: Secondary (6) Acute kidney injury ICD Code: N17.9 - Acute kidney failure, unspecified Diagnosis: Secondary (7) Atrial fibrillation with RVR ICD Code: I48.91 - Unspecified atrial fibrillation Diagnosis: Secondary Status: Acute (8) Expressive aphasia ICD Code: R47.01 - Aphasia Diagnosis: Secondary Status: Acute (9) Depression ICD Code: F32.9 - Major depressive disorder, single episode, unspecified Diagnosis: Secondary Status: Chronic (10) Hypertension ICD Code: I10 - Essential (primary) hypertension Diagnosis: Secondary Status: Chronic (11) HLD (hyperlipidemia) ICD Code: E78.5 - Hyperlipidemia, unspecified Diagnosis: Secondary Status: Chronic (12) Left acute arterial ischemic stroke, MCA (middle cerebral artery) ICD Code: I63.512 - Cerebral infarction due to unspecified occlusion or stenosis of left middle cerebral artery Diagnosis: Principal Status: Acute (13) History of diabetes mellitus ICD Code: Z86.39 - Personal history of other endocrine, nutritional and metabolic disease Diagnosis: Secondary Status: Chronic (14) Left carotid stenosis ICD Code: I65.22 - Occlusion and stenosis of left carotid artery Diagnosis: Secondary Status: Acute Procedures none Brief History - From Admission Patient is a 67-year-old female with 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 Currently DNR. Recently diagnosed with influenza pneumonia currently on day 5 of Tamiflu. Fever of 100.7 in the ED. patient was in severe respiratory distress and hypoxemic immediately placed on BiPAP 70% oxygen. Chest x-ray showed bibasilar infiltrate later confirmed with CT chest as multilobar infiltrate/pneumonia. Patient received IV Solu- Medrol and IV Zosyn after 2 blood culture obtained. Patient also also found to be in A. fib with RVR with rates in 140s. CBC showed WBC count 12.2. BUN/cr was 46/1.5 and was normal about a week ago. Critical care medicine was requested to admit the patient. I evaluated the patient in the ED. She still appears to be in moderate respiratory distress but BiPAP had been removed per patient request. Significant respiratory distress and expressive aphasia limits exam. Patient is breathing approximately 40 breaths per minute, bilateral wheezing and coarse crackles heard. I have added scheduled Solu-Medrol, DuoNeb. Tamiflu will be continued, continue Zosyn and add Zyvox. ID consulted. Continue BiPAP at 12/5. Prognosis is guarded at this time CBC/BMP: 05/30/17 1817 05/31/17 0941 Significant Findings Laboratory Tests Test 05/30/17 18:17 05/31/17 09:41 White Blood Count 16.6 TH/MM3 (4.0-11.0) Hemoglobin 16.1 GM/DL (11.6-15.3) Red Cell Distribution Width 17.9 % (11.6-17.2) Neutrophils (%) (Auto) 89.6 % (16.0-70.0) Lymphocytes (%) (Auto) 4.5 % (9.0-44.0) Neutrophils # (Auto) 14.8 TH/MM3 (1.8-7.7) Lymphocytes # (Auto) 0.7 TH/MM3 (1.0-4.8) Toxic Granulation 1+ (NORMAL) Blood Urea Nitrogen 64 MG/DL (7-18) 66 MG/DL (7-18) Creatinine 1.15 MG/DL (0.50-1.00) 1.07 MG/DL (0.50-1.00) Random Glucose 196 MG/DL (74-106) 200 MG/DL (74-106) Sodium Level 159 MEQ/L (136-145) 162 MEQ/L (136-145) Potassium Level 2.7 MEQ/L (3.5-5.1) Chloride Level 125 MEQ/L (98-107) 128 MEQ/L (98-107) Estimat Glomerular Filtration Rate 47 ML/MIN (>89) 51 ML/MIN (>89) Calcium Level 7.9 MG/DL (8.5-10.1) Imaging Last Impressions Chest X-Ray 05/28/17 0000 Signed Impressions: Service Date/Time: Sunday, May 28, 2017 09:04 - CONCLUSION: The improvement with less interstitial edema. Esteban Clarke MD FACR Liver Ultrasound 05/24/17 0000 Signed Impressions: Service Date/Time: Wednesday, May 24, 2017 13:48 - CONCLUSION: 1. Mild increased echotexture of the liver may indicate steatosis. 2. Cholelithiasis. Dre Goodman MD Chest CT 05/24/17 0000 Signed Impressions: Service Date/Time: Wednesday, May 24, 2017 13:27 - CONCLUSION: Patchy airspace disease scattered consolidation both lungs. No pleural effusion. Esteban Clarke MD FACR PE at Discharge lethargic pupils equal lungs- decrease breath sounds, no rales or wheezes rate controlled- on Cardizem drip abdomen= soft extremities no edema L sided extremities- flaccid Pt update on day of discharge lethargic Hospital Course Neuro/Psych: History of left MCA stroke with right hemiparesis Depression Peripheral neuropathy Encephalopathy Continue aspirin/Plavix PT/OT once stabilized respiratory prince Hold as needed Xanax, Prozac, Neurontin, Ambien 3/3 suspect encephalopathy secondary to CO2 narcosis since patient is in respiratory distress on BiPAP. I will obtain an ABG. Continue to monitor neurological status. 3/4 encephalopathy likely secondary to metabolic encephalopathy due to hypernatremia. Palliative care on board Hospice consult CV: Atrial fibrillation with rapid ventricular response- rate controlled CAD with History of non-STEMI Dyslipidemia Left carotid stenosis History of hypertension Chronic A. fib Cardizem infusion for rate control- continue . Start IV Lopressor 5 mg q 6 Continue Home medications Coreg and amiodarone, hold p.o. Cardizem, and losartan - po meds not being given- lethargic Continue aspirin Plavix 2 D Echo. Echocardiogram in 2014 EF around 50%. 05/27 patient on A. fib with RVR. Currently not on Cardizem infusion. Heart rate in the high 130s. Ordered EKG stat. Will give Cardizem IV bolus and placed on Cardizem drip. Will check cardiac enzymes, TSH free T4. Continue Cardizem drip at 10 mg/hr. TSH was slightly decreased at 0.119, however free T4 1.20. Acute hypoxemic respiratory failure Multilobar pneumonia recent influenza Acute COPD exacerbation Off BiPAP DuoNeb every 4 hours scheduled and as needed Broad-spectrum antibiotics with Zosyn, Zyvox, Tamiflu 05/27 x-ray shows deterioration with decreasing interstitial changes in both lungs , reviewed by me and likely consistent with acute pulmonary edema. I will obtain an ABG stat, ordered Lasix 60 mg IV once and 40 mg IV twice daily, 125 mg of IV Solu-Medrol and 60 g IV every 8 hours. Discontinue IV fluids. Order stat labs. Discussed the case with Dr. Martel who states the patient DNR/DNI. Nurse is trying to get in touch with family or contact available. I will change the BiPAP setting to 12/. off BiPAP. Continue IV Solu-Medrol which I will increase to 60 mg IV every 6 hours. Continue Lasix 40 mg IV twice daily. Continue antibiotics as per ID. Continue IV Zosyn. GI: History of hepatitis C History diverticulosis Elevated liver enzymes Advance PO as tolerated. IV Famotidine : Acute kidney injury Gates will be placed for accurate I's and O's in a critically ill patient IVF as above Endo: Diabetes mellitus Place on sliding scale insulin. Accu-Cheks to maintain euglycemia 3. For blood sugar severely elevated Heme: Monitor CBC daily. ID: Bilateral pneumonia healthcare associated Reason influenza HIV Placed on Zosyn and Zyvox, and continue Tamiflu for influenza with superadded bacterial pneumonia Continue HAART Antibiotics as per ID. ENDO: Hypokalemia Hypophosphatemia. Hyponatremia -encourage oral intake of fluids. Monitor BMP Replace electrolytes as clinically indicated for electrolyte protocol 05/27. Obtain stat labs, CBC with differential, BMP, magnesium and phosphorus. 05/28 potassium is severely depleted at 2.2, phosphorus is low at 1.7.. Will replace as per the ICU electrolyte protocol. Monitor BMP. Access Utilized peripheral IVs Prophylaxis GI - Protonix DVT - SCD/Lovenox subcutaneous Discharge Planning Patient with poor prognosis and severe respiratory distress. Case discussed with Kvng- son and staff nurse PAtient is DNR/DNI. 1645- d/w Hospice nurse- Pretty- spoke with family- discharge to Hospice care center today comfort measures Pt Condition on Discharge: Guarded Discharge Disposition: Hospice/Med Facility Discharge Time: > 30 minutes Discharge Instructions DIET: Follow Instructions for: Nothing By Mouth Activities you can perform: Continue Bedrest Joann Miranda MD Jun 01, 2017 16:50
[2017-06-01] MEDS ORDERED: PIPERACIL-TAZO 3.375 GM PREMIX 50 ML IV SCH (17:00)
== END 2017-06-01 18:20 | disposition hospice, inpatient (51) | DRG 974 ==
LOC: NEPE 10:22 → NEDA 13:09 → HIMN 14:30
PROVIDERS: ADMIT Internal Medicine; ATTEND Internal Medicine
PROC: 5A09557 Assistance with Respiratory Ventilation, Greater than 96 Consecutive Hours, Continuous Positive Airway Pressure (ICD-10-PCS; principal; 2017-05-24)
DX: A41.9 Sepsis, unspecified organism (principal); J96.01 Acute respiratory failure with hypoxia; B20 Human immunodeficiency virus [HIV] disease; R65.20 Severe sepsis without septic shock; G93.41 Metabolic encephalopathy; J11.08 Influenza due to unidentified influenza virus with specified pneumonia; J15.9 Unspecified bacterial pneumonia; N17.9 Acute kidney failure, unspecified; I48.2 Chronic atrial fibrillation; E87.0 Hyperosmolality and hypernatremia; I69.351 Hemiplegia and hemiparesis following cerebral infarction affecting right dominant side; J44.0 Chronic obstructive pulmonary disease with (acute) lower respiratory infection; J44.1 Chronic obstructive pulmonary disease with (acute) exacerbation; I69.320 Aphasia following cerebral infarction; E87.6 Hypokalemia; F17.210 Nicotine dependence, cigarettes, uncomplicated; E78.5 Hyperlipidemia, unspecified; I10 Essential (primary) hypertension; I65.22 Occlusion and stenosis of left carotid artery; Z85.3 Personal history of malignant neoplasm of breast; G62.9 Polyneuropathy, unspecified; F32.9 Major depressive disorder, single episode, unspecified; E11.9 Type 2 diabetes mellitus without complications; I25.10 Atherosclerotic heart disease of native coronary artery without angina pectoris; I25.2 Old myocardial infarction; E66.01 Morbid (severe) obesity due to excess calories; E83.39 Other disorders of phosphorus metabolism; Y95 Nosocomial condition; Z51.5 Encounter for palliative care; Z66 Do not resuscitate; B19.20 Unspecified viral hepatitis C without hepatic coma; Z88.6 Allergy status to analgesic agent; Z88.5 Allergy status to narcotic agent; Z68.29 Body mass index [BMI] 29.0-29.9, adult
CPT/HCPCS: 36600; 71045; 71250; 76705; 76937; 80048; 80053; 81001; 82550; 82805; 82948; 83605; 83735; 83880; 84100; 84439; 84443; 84484; 85007; 85025; 85027; 86355; 86357; 86359; 86360; 86403; 87040; 87077; 87186; 87205; 87449; 87641; 93005; 93306; 94002; 94003; 94640; 94664; 96365; 96375; 99292; J0360; J1650; J1815; J1940; J2020; J2060; J2270; J2543; J2930; J3480; J7030; J7050; J7070